=== PATIENT | male | born 1945 | race Caucasian/White ===

== ENCOUNTER 2017-11-19 06:21 | Outpatient (CLI) | payer BC, MEDICARE ==
[~2017-11-19] VITALS: Ht 182.9 cm; Wt 84.4 kg
[2017-11-19] VITALS (16 sets, daily range): BP systolic 120–156; BP diastolic 55–72
[~2017-11-19 06:21] MED LIST: ALLO300T PO; ASPI-630 PO; CARV12.52 PO; CARV25TA PO; CARV25TA2 PO; DIGO250T PO; ENOX80DI3 SQ; FENO145T30 PO; GLIM1TAB PO; GLIM2TAB2 PO; HYDR-2758 PO; INDO50CA5 PO; LISI1TAB5 PO; METF500T5 PO; SIMV80TA7 PO; WARF10TA45 PO
[2017-11-19] MEDS ORDERED: IODIXANOL 320 MG/ML 100 ML VIAL. ONE (07:10)
[2017-11-19] MEDS ORDERED: HEPARIN for ARTERIAL LINE 1,500 ML ONE (07:10)
[2017-11-19] MEDS ORDERED: LIDOCAINE 1% PF 30 ML VIAL. ONE (07:10)
[2017-11-19] MEDS ORDERED: fentaNYL PF VIAL 100 MCG/2 ML VIAL ONE (07:18)
[2017-11-19] MEDS ORDERED: HEPARIN for IV BOLUS 10,000 UNIT/10 ML VIAL. ONE (07:19)
[2017-11-19] MEDS ORDERED: MIDAZOLAM HCL/PF 5 MG/5 ML VIAL. ONE (07:19)
[2017-11-19] MEDS ORDERED: AMLO10TA2 PO (07:25)
[2017-11-19] MEDS ORDERED: INDO50CA5 PO (07:25)
[2017-11-19] MEDS ORDERED: ASPI-630 PO (07:25)
[2017-11-19 07:36] LABS: HEMATOCRIT 36.8 % (39.0-53.0); HEMOGLOBIN 12.4 g/dL (13.0-17.5); RED BLOOD COUNT 3.89 x10^6/uL (4.30-5.70); RED CELL DISTRIBUTION WIDTH 15.9 % (11.5-14.5); WHITE BLOOD COUNT 7.8 x10^3/uL (4.0-11.0)
[2017-11-19 07:46] LABS: PROTHROMBIN TIME PATIENT 13.8 SEC (11.7-14.0)
[2017-11-19 07:53] LABS: CALCIUM 9.5 mg/dL (8.5-10.1); CREATININE 1.7 mg/dL (0.7-1.3); GFR 39.7; POTASSIUM 4.2 mmol/L (3.5-5.1)
[2017-11-19] MEDS ORDERED: LIDOCAINE 1% PF 30 ML VIAL. INJ ONE (09:00)
[2017-11-19] MEDS ORDERED: fentaNYL PF VIAL 100 MCG/2 ML VIAL IV ONE (09:00)
[2017-11-19] MEDS ORDERED: IODIXANOL 320 MG/ML 100 ML VIAL. IART ONE (09:00)
[2017-11-19] MEDS ORDERED: MIDAZOLAM HCL/PF 5 MG/5 ML VIAL. IV ONE (09:00)
[2017-11-19] MEDS ORDERED: HEPARIN for IV BOLUS 10,000 UNIT/10 ML VIAL. IV ONE (09:00)
[2017-11-19] MEDS ORDERED: NITROGLYCERIN 200 MCG/2 ML SYRINGE FOR CATH/VASC LAB. IART ONE (09:15)
--- NOTE | 2017-11-19 11:56 | CARD ---
MR#: [id number] Date of Study: 11/19/2017 Ordering Physician: BRISA ARVIZU, Referring Physician: BRISA ARVIZU, Tech: RT Sylvester (R) APPROVED REPORT Technologist: RT Sylvester (R) Nurse: Lien Apple R.N. Procedure(s) performed: 108 MINS SEDATION Abdominal aortogram with bilateral peripheral run-off. Attempted PARTS PICKER recanalization of the right anterior tibial artery. HISTORY The patient is a 72 year-old male with a history of : renal failure without dialysis, coronary artery disease, tobacco history() , hypertension, dyslipidemia. INDICATION The indication(s) include : Bilateral lower extremity claudication with significant lifestyle limitin g symptoms.. PROCEDURE NARRATIVE After appropriate informed consent, the patient was brought to the slab inspector and placed in the supine position. Preprocedural timeout was completed and confirmed the right patient and procedure. The bila teral groins were prepped and draped in usual sterile fashion. Moderate sedation acheived with Fentan yl and Versed. The patient received 7000 units of Heparin for anticoagulation. Access: Under lidocaine local anesthesia, a 5Fr introducer sheath was placed in the LCFA via the kacy fied seldinger technique with a J-tipped guidewire and an 18g needle. Diagnostic angiography was then performed using a 5Fr Omniflush catheter with digital subtraction angiography. Next, the contralater al (RCFA) was accessed with the aid of the Omniflush catheter and a J-tipped guidewire. The omniflush was then exchanged for a long angled glide catheter which was then placed in the RCFA. Repeat right lower extremity with DSA was performed. FINDINGS: AO: 154/86 AORTA: Distal 30% stenosis. RENALS: No significant disease. RCIA: No significant disease. REIA: Mild diffuse irregularities of up to 40%. RIIA: Moderate diffuse irregularities of up to 50%. RCFA: No significant disease. RSFA: Moderate diffuse irregularities in the proximal and mid segment of 30%. Patent distal stent wit h 50% ISR. RPOP: Moderate diffuse disease of up to 30%. RAT: Proximal 100% occlusion. The distal vessel is seen to fill via distal peroneal collaterals. RPER: There is a proximal to mid 40-50% stenosis. RPT: Ostial 100% occlusion. The distal vessel is seen to fill via peroneal collaterals. LCIA: Mild diffuse irregularities of up to 20%. AMARJIT: Mild diffuse irregularities of up to 20%. LIIA: Mild diffuse irregularities. LCFA: No significant disease. LSFA: Heavily calcified with diffuse irregularities of up to 50%. LPOP: Has a focal 80% stenosis in the P2/P3 segment. LAT: Proximally occluded. Distal vessel is seen to fill via peroneal collaterals and geniculate colla terals. LPER: Moderate diffuse disease of up to 50%. LPT: Ostially occluded. Distal vessel is seen to fill via peroneal collaterals. INTERVENTIONAL TECHNIQUE: The 5Fr sheath was replaced with a 6fr Edwardo 55cm sheath. Using an angled glide catheter, a pull grad ient across the RSFA stent revealed a 16 mm gradient. Therefore, further intervention on this was def erred. Due to one vessel run-off, the peroneal artery lesion was not intervened upon. Using a command 0.014'' wire, the wire was directed into the anterior tibial artery over a finecross wire. The proxi mal cap was crossed but the wire was outside the vessel architecture. Therefore, further intervention was deferred. There was no sign of significant contrast extravasation. Due to lack of any ischemic u lcers, contrast load further intervention was deferred in favor of a pedal approach. At case completi on, the left sided sheath was removed and hemostasis was achieved with an Angioseal device. The patient tolerated the procedure well and there were no acute complications. Conclusion 1. Severe below knee disease bilaterally with one vessel run-off 2. Unsuccessful right anterior tibial artery PARTS PICKER recanalization via the antegrade approach. Recommendations The patient has significant lifestyle limiting symptoms and therefore, we will plan for return trip t o the lab in 4 weeks for staged PVI of the right anterior tibial artery and left popliteal artery via a right pedal/femoral approach. Signed by : Brisa Arvizu, Electronically Approved : 11/19/2017 11:55:55
== END 2017-11-19 13:51 | disposition home or self-care (01) ==
LOC: CCL 06:21
PROVIDERS: ATTEND Internal Medicine Cardiovascular Disease
DX: I70.213 Atherosclerosis of native arteries of extremities with intermittent claudication, bilateral legs (principal); I10 Essential (primary) hypertension; I25.10 Atherosclerotic heart disease of native coronary artery without angina pectoris; E78.5 Hyperlipidemia, unspecified; I70.0 Atherosclerosis of aorta
CPT/HCPCS: 36246; 36415; 75630; 80048; 85027; 85347; 85610; 99152; 99153; C1769; C1885; C1887; C1892; J1644; J2250; J3010; Q9967; C1771; G0269

== ENCOUNTER → 2019-05-19 | Outpatient (CLI) | payer BC, MEDICARE ==
[2017-12-11 10:52] VITALS: BP 157/73
[~2019-05-19] MED LIST changes: +AMLO10TA8 PO; +CARV12.511 PO; -CARV12.52 PO; -DIGO250T PO; +DIGO250T3 PO; +FENO145T3 PO; -FENO145T30 PO; -GLIM2TAB2 PO; +GLIM2TAB7 PO; -HYDR-2758 PO; +HYDR-2761 PO; +HYDR-2868 PO; +INDO50CA15 PO; -INDO50CA5 PO; +ISOS30TA4 PO; +LISI1TAB19 PO; -LISI1TAB5 PO; +METF500T16 PO; -METF500T5 PO; +SIMV80TA17 PO; -SIMV80TA7 PO
--- NOTE | 2019-05-19 13:37 | RAD ---
MR#: [id number] Date of Study: 05/19/2019 Ordering Physician: BRISA ARVIZU, Referring Physician: BRISA ARVIZU, Tech: Lalit Parrish MBA, RDMS, RVT, RDCS, RTR APPROVED REPORT Patient Location: OUT-PATIENT Indications PAD VELOCITY AND DOPPLER WAVEFORM ANALYSIS RIGHT cm/secWaveformSeverity LEFT cm/secWaveform Severity dCFA 61.0BiphasicdCFA 104.0Biphasic Prof Fem Art. 94.0BiphasicProf Fem Art. 44.0Biphasic Fem Art Prox. 447.0BiphasicFem Art Prox. 356.0Biphasic Fem Art Mid. 193.0BiphasicFem Art Mid. 158.0Biphasic Fem Art Dist. 52.0BiphasicFem Art Dist. 41.0Monophasic Pop Art(Fossa) 32.0BiphasicPop Art(AK) 34.0Monophasic FIELD OPERATOR Prox. OccludedPTA Prox. 54.0Monophasic FIELD OPERATOR Dist. OccludedPTA Dist. 41.0Monophasic [place] Prox. 71.0MonophasicATA Prox. 132.0Monophasic DPA 22MonophasicDPA 33Monophasic Findings Grayscale images of the bilateral lower ext arterial vessels are notable for diffuse atherosclerotic calcification On the right, Spectral waveforms and color Doppler velocities are notable for a greater than 75% sten osis involving the proximal SFA. Imaged velocities are noted distally in the popliteal vessels. The p osterior tibial artery appears to be excluded and the peroneal artery is not well-visualized. The ant erior tibial artery has monophasic waveforms. On the left there are biphasic waveforms in the common femoral artery with again likely a greater joey n 50% stenosis involving the proximal SFA was diminished distal velocities. Monophasic waveforms are noted throughout the distal SFA and popliteal and below-knee vessels. The peroneal artery is not visu alized. There are monophasic waveforms in the posterior tibial with normal velocities. Mildly elevate d velocities in the anterior tibial artery but in a monophasic wave pattern. Critical Notification Critical Value: No <Conclusion> 1. Severe bilateral SFA disease as described above 2. One-vessel runoff on the right side and two-vessel runoff on the left side. Signed by : Brisa Arvizu, Electronically Approved : 05/19/2019 10:48:00
--- NOTE | 2019-05-19 13:37 | RAD ---
MR#: [id number] Date of Study: 05/19/2019 Ordering Physician: BRISA ARVIZU, Referring Physician: BRISA ARVIZU, Tech: Lalit Parrish MBA, RDMS, RVT, RDCS, RTR APPROVED REPORT Patient Location: OUT-PATIENT Laterality:Bilateral Indications PAD Doppler Spectral Velocity Analysis Right Left pCCA 79/17 cm/spCCA 89/15 cm/s mCCA 59/13 cm/smCCA 45/19 cm/s dCCA 37/8 cm/sdCCA 47/15 cm/s Bulb 40/6 cm/sBulb 34/12 cm/s ECA 67/ cm/sECA 68/ cm/s pICA 44/16 cm/spICA 71/20 cm/s Chidi 75/25 cm/smICA 84/32 cm/s dICA 83/30 cm/sdICA 89/32 cm/s Vert. 44/ cm/sVert. 43/ cm/s Subcl. 106/ cm/sSubcl. 102/ cm/s ICA/CCA 1.05ICA/CCA 1.00 Findings Grayscale images of the bilateral carotid vessels demonstrate mild diffuse intimal hyperplasia On the right side velocities are mildly diminished diffusely suggestive of more proximal low output c ardiac state. No significant velocity acceleration is noted with overall 0 to less than 50% stenosis based on veloc ity criteria. Normal ICA to CCA ratios bilaterally. Vertebral velocities are antegrade. Subclavian velocities are within normal limits. Critical Notification Critical Value: No <Conclusion> No significant carotid occlusive disease bilaterally. Signed by : Brisa Arvizu, Electronically Approved : 05/19/2019 11:15:41
--- NOTE | 2019-05-19 13:37 | RAD ---
MR#: [id number] Date of Study: 05/19/2019 Ordering Physician: BRISA ARVIZU, Referring Physician: BRISA ARVIZU, Tech: Lalit Parrish MBA, RDMS, RVT, RDCS, RTR APPROVED REPORT Patient Location: OUT-PATIENT Indications PAD Duplex Results A/PTransverseLongitudinal Proximal Aorta 2.5cm2.3cm Mid Aorta 2.1cm1.8cm Distal Aorta 1.6cm1.5cm Doppler VelocityWaveform Proximal Aorta 60.0 cm/sec Findings Grayscale images of the abdominal aorta are limited due to bowel gas and body habitus. There is mild diffuse calcification in the visualized portions. No obvious aneurysm is noted with measurements as noted above. Critical Notification Critical Value: No <Conclusion> No evidence of abdominal aortic aneurysm. Signed by : Brisa Arvizu, Electronically Approved : 05/19/2019 11:16:41
== END | disposition home or self-care (01) ==
LOC: US 07:06
PROVIDERS: ATTEND Internal Medicine Cardiovascular Disease
DX: I70.291 Other atherosclerosis of native arteries of extremities, right leg (principal)
CPT/HCPCS: 93880; 93925; 93978

== ENCOUNTER → 2019-05-25 | Outpatient (CLI) | payer BC ==
[2017-12-11 10:52] VITALS: BP 157/73
--- NOTE | 2019-05-25 13:23 | CARD ---
MR#: [id number] Date of Study: 05/25/2019 Ordering Physician: BRISA PEREZ, Referring Physician: BRISA PEREZ, Tech: Yazmin Perales TRANG APPROVED REPORT EXAM: Two-dimensional and M-mode echocardiogram with Doppler and color Doppler. Other Information Quality : GoodHR: 100bpm INDICATION CAD RISK FACTORS CABG and aortic mechanical valve replacement, 1999 2D DIMENSIONS RVDd3.8 (2.9-3.5cm)Left Atrium(2D)5.4 (1.6-4.0cm) IVSd0.8 (0.7-1.1cm)Aortic Root(2D)2.8 (2.0-3.7cm) LVDd7.2 (3.9-5.9cm)LVOT Diameter2.2 (1.8-2.4cm) PWd1.3 (0.7-1.1cm)LVDs6.7 (2.5-4.0cm) FS (%) 5.7 %SV33.5 ml LVEF(%)12.5 (>50%) Aortic Valve AoV Peak Jamir.203.8cm/sAoV VTI29.7cm AO Peak GR.16.6mmHgLVOT Peak Jamir.87.5cm/s AO Mean GR.7mmHgAVA (VMAX)1.62cm2 AI P 1/2 [id number] Mitral Valve MV E Peak Gr.7mmHgMV E Mean Gr.2mmHg Pulmonary Valve PV Peak Qbtumsxc63.3cm/s Tricuspid Valve TR P. Xpuxouhx591sh/sRAP ITMXYSXF2soZn TR Peak Gr.59mtTrUSIP95riTo LEFT VENTRICLE The Left Ventricle is severely dilated. There is normal left ventricular wall thickness. The ejection fraction is severely impaired. The Ejection Fraction is 15-20% There is severe global hypokinesis of the left ventricle. Tissue Doppler imaging reveals severe left ventricular diastolic dysfunction. Th ere is no ventricular septal defect visualized. RIGHT VENTRICLE The right ventricle is normal size. RV Systolic function is mildly reduced. There is a pacemaker/ICD lead in the RV/RA ATRIA The left atrium is severely dilated. The right atrium is moderately to severely dilated. A pacemaker is seen in the right atrium consistent with history. The interatrial septum is intact with no evidenc e for an atrial septal defect or patent foramen ovale as noted on 2-D or Doppler imaging. AORTIC VALVE Doppler and Color Flow revealed mild to moderate aortic regurgitation. The mechanical aortic valve is not well visualized due to imaging artifacts from the prosthesis. Doppler revealed a max pressure gr adient of 17 mmHg and a mean pressure gradient of 7 mmHg. MITRAL VALVE Mitral annular calcification is mild. There is no mitral valve stenosis. Doppler and Color-flow revea led mild mitral regurgitation. TRICUSPID VALVE The tricuspid valve is normal in structure and function. Doppler and Color Flow revealed trace to mil d tricuspid regurgitation. PAP is estimated at 36 mmHg. There is no tricuspid valve stenosis. PULMONIC VALVE The pulmonary valve is normal in structure and function. Doppler and Color Flow revealed trace pulmon ic valvular regurgitation. There is no pulmonic valvular stenosis. GREAT VESSELS The aortic root is normal in size. The ascending aorta is normal in size. The IVC is normal in size a nd collapses >50% with inspiration. PERICARDIAL EFFUSION There is no pleural effusion. There is no evidence of significant pericardial effusion. Critical Notification Critical Value: No <Conclusion> The ejection fraction is severely impaired. The Ejection Fraction is 15-20% There is severe global hypokinesis of the left ventricle. There is a pacemaker/ICD lead in the RV/RA The mechanical aortic valve is not well visualized due to imaging artifacts from the prosthesis. Dopp ler revealed a max pressure gradient of 17 mmHg and a mean pressure gradient of 7 mmHg. Doppler and Color Flow revealed mild to moderate aortic regurgitation. Doppler and Color Flow revealed trace to mild tricuspid regurgitation. PAP is estimated at 36 mmHg. Signed by : Brisa Perez, Electronically Approved : 05/25/2019 13:22:16
== END ==
LOC: ECHO 09:35
PROVIDERS: ATTEND Internal Medicine Cardiovascular Disease
DX: I08.0 Rheumatic disorders of both mitral and aortic valves (principal); I25.10 Atherosclerotic heart disease of native coronary artery without angina pectoris
CPT/HCPCS: 93306

== ENCOUNTER 2019-06-20 08:38 | Inpatient (IN) | payer BC, MEDICARE ==
[~2019-06-20] VITALS: Ht 182.9 cm; Wt 80.2 kg
[2019-06-20] MEDS ORDERED: dilTIAZem IV PUSH 25 MG/5 ML VIAL IVP ONE (09:00)
[2019-06-20] MEDS ORDERED: dilTIAZem INJ 125 MG in IV NORMAL SALINE 100ML 100 ML IV ONE (09:00)
[2019-06-20] MEDS ORDERED: ASPIRIN CHEWABLE 81 MG TABLET. PO ONE (09:00)
--- NOTE | 2019-06-20 09:11 | RAD ---
Examination: PORTABLE CHEST 1V History: Chest pain Comparison/Correlation: 10/17/2015 2 view chest x-ray exam Findings: Portable upright frontal view chest was obtained. Single lead left-sided ICD is present. Sternal wires are present. Heart size is borderline. No infiltrate or pneumothorax. No significant pleural effusion. Costophrenic angles are not fully included in the spine limits assessment. Impression: No suspicious process on this limited exam. Electronically signed by: Syed Alfredo MD (06/20/2019 9:09 AM) [id number]
--- NOTE | 2019-06-20 09:22 | EKG ---
[facility] [address] [place] [address] Test Date: 2019-06-20 Test Time: 08:47:32 Pat Name: SHELLY COREAS Department: Room: Gender: M Stallion Keeper: : 1945 Requested By: LUIS MANUEL FOY Order Number: [id number] Reading MD: Measurements Intervals [place] Rate: 127 P: MT: QRS: -43 QRSD: 140 T: 73 QT: 324 QTc: 476 Interpretive Statements ATRIAL FIB./FLUTTER WITH RAPID VENTRICULAR RESPONSE ABNORMAL LEFT AXIS DEVIATION NON SPECIFIC INTRAVENTRICULAR BLOCK ABNORMAL ECG No previous ECG available for comparison
[2019-06-20 09:30] LABS: CALCIUM 8.8 mg/dL (8.5-10.1); CREATININE 1.5 mg/dL (0.7-1.3); GFR 45.6; POTASSIUM 4.4 mmol/L (3.5-5.1)
[2019-06-20 09:35] LABS: ALBUMIN 3.1 g/dL (3.4-5.0); MAGNESIUM 0.9 mg/dL (1.8-2.4); TOTAL BILIRUBIN 0.7 mg/dL (0.2-1.0); TOTAL PROTEIN 6.3 g/dL (6.4-8.2)
--- NOTE | 2019-06-20 09:36 | PHYS DOC ---
Past Medical History Past Medical History: Diabetes-Type II, Hypertension Past Surgical History: Coronary Bypass Surgery, Pacemaker, Other Additional Past Surgical Histo: valve replacement Smoking Status: Current Every Day Smoker Alcohol Use: None Drug Use: None Adult General Chief Complaint Chief Complaint: CHEST PAIN [facility] HPI Patient is a 74 year old male with history of hypertension, diabetes mellitus, coronary artery disease with status post CABG, artificial cardiac valve placement who presents with complaint of chest pain. Patient complaining of intermittent episodes of chest pain or shortness of breath when he woke up for the last 3 days that last for about 2 to 3 minutes and resolve during the day. Patient states the pain is in bilateral chest without radiation as a sharp pain and rated his pain 6/10 without having any chest pain at arrival to ER. Patient denies palpitation, dizziness, fever and chills, nausea and vomiting. Patient complaining of productive cough with clear sputum for the last 1 week without fever and chills and generalized weakness. Patient taking Coumadin but denies having history of atrial fibrillation. Patient had atrial fibrillation with RVR rate of 127 at arrival to ER and denied palpitation and dizziness and chest pain and shortness of breath. Review of Systems Review of Systems Constitutional: Denies fever or chills [] Eyes: Denies change in visual acuity, redness, or eye pain [] HENT: Denies nasal congestion or sore throat [] Respiratory: Reports cough and shortness of breath Cardiovascular: No additional information not addressed in HPI [] GI: Denies abdominal pain, nausea, vomiting, bloody stools or diarrhea [] : Denies dysuria or hematuria [] Musculoskeletal: Denies back pain or joint pain [] Integument: Denies rash or skin lesions [] Neurologic: Denies headache, focal weakness or sensory changes [] Endocrine: Denies polyuria or polydipsia [] All other systems were reviewed and found to be within normal limits, except as documented in this note. Current Medications Current Medications Current Medications Medications (Trade) Dose Ordered Sig/William Start Time Stop Time Status Last Admin Dose Admin Aspirin (Children'S Aspirin) 324 mg 1X ONCE 06/20/19 09:00 06/20/19 09:01 DC Diltiazem HCl (Cardizem Iv Push) 20 mg 1X ONCE 06/20/19 09:00 06/20/19 09:01 DC Diltiazem HCl 125 mg/Sodium Chloride 125 ml @ 10 mls/hr 1X ONCE 06/20/19 09:00 06/20/19 21:29 Magnesium Sulfate 50 ml @ 25 mls/hr 1X ONCE 06/20/19 11:00 06/20/19 12:59 Allergies Allergies Allergies Coded Allergies Type Severity Reaction Last Updated Verified No Known Drug Allergies 05/05/15 No Physical Exam Physical Exam Constitutional: Well developed, well nourished, no acute distress, non-toxic appearance. [] HENT: Normocephalic, atraumatic, bilateral external ears normal, oropharynx moist, no oral exudates, nose normal. [] Eyes: PERRLA, EOMI, conjunctiva normal, no discharge. [] Neck: Normal range of motion, no tenderness, supple, no stridor. [] Cardiovascular: Irregularly irregular rhythm with tachycardia, no murmur [] Lungs & Thorax: Bilateral breath sounds clear to auscultation [] Abdomen: Bowel sounds normal, soft, no tenderness, no masses, no pulsatile masses. [] Skin: Warm, dry, no erythema, no rash. [] Back: No tenderness, no CVA tenderness. [] Extremities: No tenderness, no cyanosis, no clubbing, ROM intact, no edema. [] Neurologic: Alert and oriented X 3, normal motor function, normal sensory f unction, no focal deficits noted. [] Psychologic: Affect normal, judgement normal, mood normal. [] Current Patient Data Vital Signs Vital Signs Date Time Temp Pulse Resp B/P (MAP) Pulse Ox O2 Delivery O2 Flow Rate FiO2 06/20/19 09:06 97.0 118 22 137/77 (97) 97 Room Air 97.0 Lab Values Laboratory Tests Test 06/20/19 09:00 White Blood Count 9.8 x10^3/uL (4.0-11.0) Red Blood Count 4.07 x10^6/uL (4.30-5.70) L Hemoglobin 12.7 g/dL (13.0-17.5) L Hematocrit 38.3 % (39.0-53.0) L Mean Corpuscular Volume 94 fL (79-100) Mean Corpuscular Hemoglobin 31 pg (25-35) Mean Corpuscular Hemoglobin Concent 33 g/dL (31-37) Red Cell Distribution Width 15.4 % (11.5-14.5) H Platelet Count 179 x10^3/uL (140-400) Neutrophils (%) (Auto) 74 % (31-73) H Lymphocytes (%) (Auto) 17 % (24-48) L Monocytes (%) (Auto) 7 % (0-9) Eosinophils (%) (Auto) 1 % (0-3) Basophils (%) (Auto) 1 % (0-3) Neutrophils # (Auto) 7.2 x10^3/uL (1.8-7.7) Lymphocytes # (Auto) 1.7 x10^3/uL (1.0-4.8) Monocytes # (Auto) 0.7 x10^3/uL (0.0-1.1) Eosinophils # (Auto) 0.1 x10^3/uL (0.0-0.7) Basophils # (Auto) 0.1 x10^3/uL (0.0-0.2) Prothrombin Time 38.0 SEC (11.7-14.0) H Prothrombin Time INR 3.8 (0.8-1.1) H Sodium Level 141 mmol/L (136-145) Potassium Level 4.4 mmol/L (3.5-5.1) Chloride Level 103 mmol/L (98-107) Carbon Dioxide Level 30 mmol/L (21-32) Anion Gap 8 (6-14) Blood Urea Nitrogen 21 mg/dL (8-26) Creatinine 1.5 mg/dL (0.7-1.3) H Estimated GFR (Cockcroft-Gault) 45.6 BUN/Creatinine Ratio 14 (6-20) Glucose Level 169 mg/dL (70-99) H Calcium Level 8.8 mg/dL (8.5-10.1) Magnesium Level 0.9 mg/dL (1.8-2.4) L Total Bilirubin 0.7 mg/dL (0.2-1.0) Aspartate Amino Transferase (AST) 18 U/L (15-37) Alanine Aminotransferase (ALT) 32 U/L (16-63) Alkaline Phosphatase 103 U/L (46-116) Creatine Kinase 98 U/L (39-308) Troponin I Quantitative < 0.017 ng/mL (0.000-0.055) OY-Qak-W-Type Natriuretic Peptide > 19360 pg/mL (0-449) H Total Protein 6.3 g/dL (6.4-8.2) L Albumin 3.1 g/dL (3.4-5.0) L Albumin/Globulin Ratio 1.0 (1.0-1.7) Laboratory Tests 06/20/19 09:00 Laboratory Tests 06/20/19 09:00 EKG EKG EKG interpreted by me. EKG at 0847 showed atrial fibrillation with RVR at rate of 127, abnormal left axis deviation, nonspecific intraventricular block, no acute ST and T wave elevation. Radiology/Procedures Radiology/Procedures [facility] [address] [place] [address] IMAGING REPORT Signed PATIENT: SHELLY COREAS ACCOUNT: [id number] : 1945 LOCATION: ER AGE: 74 SEX: M EXAM STATUS: REG ER ORD. PHYSICIAN: LUIS MANUEL FOY MD REASON: Chest pain PROCEDURE: PORTABLE CHEST 1V Examination: PORTABLE CHEST 1V History: Chest pain Comparison/Correlation: 10/17/2015 2 view chest x-ray exam Findings: Portable upright frontal view chest was obtained. Single lead left-sided ICD is present. Sternal wires are present. Heart size is borderline. No infiltrate or pneumothorax. No significant pleural effusion. Costophrenic angles are not fully included in the spine limits assessment. Impression: No suspicious process on this limited exam. Electronically signed by: Syed Carreon MD (06/20/2019 9:09 AM) [id number] DICTATED and SIGNED BY: SYED CARREON MD DATE: 06/20/19908 Course & Med Decision Making Course & Med Decision Making Pertinent Labs and Imaging studies reviewed. (See chart for details) Evaluation of patient no-show 74-year-old poor historian male patient with complaining of intermittent episodes of chest pain and shortness of breath in the morning. Patient had O2 sat of 97% at room air without complaining of chest pain or shortness of breath at arrival to ER. Patient had atrial fibrillation with RVR without known history of A. fib that spontaneously converted to sinus rhythm with rate of under 100. Patient had blood pressure of 111 and did not have Lasix related to BNP of more than 35,000. Magnesium was 0.9 and IV magnesium was ordered. Patient requiring admission for further evaluation and treatment. Discussed with Dr. Priest who is in agreement with admission. Discussed findings and plan with patient and family, who acknowledge understanding and agreement. Dragon Disclaimer Dragon Disclaimer This electronic medical record was generated, in whole or in part, using a voice recognition dictation system. Departure Departure Impression: Primary Impression: CHF (congestive heart failure) Additional Impressions: Shortness of breath Chest pain Hypomagnesemia Renal insufficiency Anemia Tobacco abuse Atrial fibrillation with RVR Disposition: ADMITTED INPATIENT (At 1110) Admitting Physician: IMER (Dr. Priest accepted admission at 1109) Condition: IMPROVED Referrals: COLLETTE REYNA MD (PCP) The HEART Score for CP Pts HEART Score for Chest Pain: HEART Score for Chest Pain Response (Comments) Value History Moderately Suspicious 1 ECG Nonspecific Repolarizatio 1 Age > 65 2 Risk Factors >3 Risk Factors or Hx CAD 2 Troponin < Normal Limit 0 Total 6 Risk Factors: Risk Factors: DM, Current or recent (<one month) smoker, HTN, HLP, family history of CAD, obesity. Risk Scores: Score 0 - 3: 2.5% MACE over next 6 weeks - Discharge Home Score 4 - 6: 20.3% MACE over next 6 weeks - Admit for Clinical Observation Score 7 - 10: 72.7% MACE over next 6 weeks - Early Invasive Strategies Critical Care Time Critical care time was 50 minutes exclusive of procedures. Problem Qualifiers Primary Impression: CHF (congestive heart failure) Heart failure type: unspecified Heart failure chronicity: unspecified Qualified Codes: I50.9 - Heart failure, unspecified Additional Impressions: Chest pain Chest pain type: unspecified Qualified Codes: R07.9 - Chest pain, unspecified Anemia Anemia type: unspecified type Qualified Codes: D64.9 - Anemia, unspecified LUIS MANUEL FOY MD Jun 20, 2019 09:36
[2019-06-20 09:37] LABS: BASO # 0.1 x10^3/uL (0.0-0.2); BASO % 1 % (0-3); EOS # 0.1 x10^3/uL (0.0-0.7); EOS % 1 % (0-3); HEMATOCRIT 38.3 % (39.0-53.0); HEMOGLOBIN 12.7 g/dL (13.0-17.5); LYMPH # 1.7 x10^3/uL (1.0-4.8); LYMPH % 17 % (24-48); MEAN CORPUSCULAR HEMOGLOBIN 31 pg (25-35); MEAN CORPUSCULAR HGB CONC 33 g/dL (31-37); MEAN CORPUSCULAR VOLUME 94 fL (79-100); MONO # 0.7 x10^3/uL (0.0-1.1); MONO % 7 % (0-9); NEUT # 7.2 x10^3/uL (1.8-7.7); NEUT % 74 % (31-73); PLATELET COUNT 179 x10^3/uL (140-400); RED BLOOD COUNT 4.07 x10^6/uL (4.30-5.70); RED CELL DISTRIBUTION WIDTH 15.4 % (11.5-14.5); WHITE BLOOD COUNT 9.8 x10^3/uL (4.0-11.0)
[2019-06-20] MEDS ORDERED: MAGNESIUM SULFATE 2GM 50 ML IV ONE (11:00)
--- NOTE | 2019-06-20 12:54 | CONS ---
DATE OF CONSULTATION: 06/20/2019 CHIEF COMPLAINT: Chest pain and shortness of breath. HISTORY OF PRESENT ILLNESS: The patient is a pleasant 74-year-old male who presented to the ER with chest pain and shortness of breath. He has known coronary artery disease with history of bypass surgery. While in the ER, we noticed that he is in AFib with RVR and heart failure. I discussed the case with ER physician. We are going to admit the patient and consult Cardiology. PAST MEDICAL HISTORY: Coronary artery disease with bypass surgery, diabetes, hypertension, pacemaker, valve replacement, and tobacco abuse. ALLERGIES: None. FAMILY HISTORY: Coronary artery disease. SOCIAL HISTORY: He smokes. No drinks or drugs. MEDICATIONS: Reviewed. Please refer to the MRAD. REVIEW OF SYSTEMS: GENERAL: No history of weight change, weakness or fevers. SKIN: No bruising, hair changes or rashes. EYES: No blurred, double or loss of vision. NOSE AND THROAT: No history of nosebleeds, hoarseness or sore throat. HEART: He complains of chest pain. LUNGS: He complains of shortness of breath. GASTROINTESTINAL: Denies changes in appetite, nausea, vomiting, diarrhea or constipation. GENITOURINARY: No history of frequency, urgency, hesitancy or nocturia. NEUROLOGIC: Denies history of numbness, tingling, tremor or weakness. PSYCHIATRIC: No history of panic, anxiety or depression. ENDOCRINE: No history of heat or cold intolerance, polyuria or polydipsia. EXTREMITIES: Denies muscle weakness, joint pain, pain on walking or stiffness. PHYSICAL EXAMINATION: VITALS: Within normal limits and are stable. GENERAL: No apparent distress. Alert and oriented. HEENT: Normal cephalic atraumatic, external auditory canals are patent EYES: Extraocular muscles are intact, pupils are equally round and reactive to light and accommodation MUSCULOSKELETAL: Well developed, well nourished, good range of motion ENDOCRINE: No thyromegaly was palpated LYMPHATICS: No cervical chain or axillary nodes were noted HEMATOPOIETIC: No bruising NECK: Supple, no JVD, no thyromegaly was noted. LUNGS: He has some fine crackles. HEART: He has distant S1, S2 with irregular rate. ABDOMEN: Soft, nontender. Positive bowel sounds no organomegaly, normal bowel sounds. EXTREMITIES: Without any cyanosis, clubbing, or edema. Pedal pulses intact, Homans sign is negative. NEUROLOGIC: Normal speech, normal tone. A & O x3, moves all extremities, no obvious focal deficits. PSYCHIATRIC: Normal affect, normal mood. Stable. SKIN: No ulcerations or rashes, good skin turgor, no jaundice. VASCULAR: Good capillary refill, neurovascular bundle appears to be intact. LABORATORY DATA: Creatinine is 1.5. Hemoglobin is 12.7. BNP greater than 35,000. Troponin is 0. ASSESSMENT AND PLAN: [id number] systolic and diastolic heart failure, chest pain, and atrial fibrillation with rapid ventricular response. The patient has been admitted. We will consult Cardiology. Serial enzymes, serial EKGs, cardiac monitoring, home meds, and deep venous thrombosis prophylaxis. Full code. PROGNOSIS: Long-term guarded. SHANNA VALDOVINOS DO DR: JORJE/sherri JOB#: [id number] / [id number]
--- NOTE | 2019-06-20 13:41 | EKG ---
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
--- NOTE | 2019-06-20 13:57 | NUR ---
Patient does not know what home medicines he takes but states that they're the same as what he took when he was here last, which was November 2017. Patient does not know what his 's phone number is. Had BM today, no diarrhea. Complains of cough and shortness of breath, travels daily to [place]. Wishes to be a DNR but has no advanced directive.
[2019-06-20 18:23] VITALS: BP 146/65
[2019-06-20] MEDS ORDERED: ALLO100T PO (20:18)
[2019-06-20] MEDS ORDERED: CARV25TA2 PO (20:18)
[2019-06-20] MEDS ORDERED: LISI1TAB19 PO (20:18)
[2019-06-20] MEDS ORDERED: ATOR80TA72 PO (20:18)
[2019-06-20] MEDS ORDERED: WARF-31 PO (20:37)
[2019-06-20] MEDS ORDERED: WARFARIN 5 MG TABLET. PO SCH (20:45)
[2019-06-20] MEDS ORDERED: ATORVASTATIN CALCIUM 40 MG TABLET. PO SCH (21:00)
[2019-06-20] MEDS ORDERED: CARVEDILOL 12.5 MG TABLET. PO SCH (21:00)
[2019-06-20] MEDS ORDERED: LISINOPRIL 20 MG TABLET PO SCH (21:00)
[2019-06-20] MEDS ORDERED: metFORMIN 500 MG TABLET PO SCH (21:00)
[2019-06-20] MEDS ORDERED: NON FORMULARY ITEM (Lisinopril/Hydrochlorothiazide (Lisinopril-Hctz 20-12.5 Mg Tab) 1 TAB) PO SCH (21:00)
[2019-06-20] MEDS ORDERED: hydroCHLOROthiazide 12.5 MG CAPSULE PO SCH (21:00)
[2019-06-20 22:50] VITALS: BP 117/57
--- NOTE | 2019-06-20 22:51 | PDOC2 ---
CARDIOLOGY CONSULT NOTE CHEIF COMPLAINT: Dyspnea HPI: Mr. Oconnell is a pleasant 74 y.o man who is well known to me. He presents with worsening dyspnea w/o other stigmata of heart failure. He has had progressive decline in LV function despite medical optimization.He continues to smoke. He has not had any angina but did have central chest pressure during episode of afib with rvr. No other acute issues. He is tolerating his medical therapy well. PMHX: CAD s/p CABG Mechanical AVR Ischemic CMP with last EF OF 20% in 2019 PAD severe LE claudication Tobacco abuse. HTN Dyslipidemia SOCHX: He is . Still smokes. FAMHX: NC CURRENT MEDS: Current Medications Medications (Trade) Dose Ordered Sig/William Route PRN Reason Start Time Stop Time Status Last Admin Dose Admin Magnesium Sulfate 50 ml @ 25 mls/hr 1X ONCE IV 06/20/19 11:00 06/20/19 12:59 DC 06/20/19 12:23 Atorvastatin Calcium (Lipitor) 80 mg QHS PO 06/20/19 21:00 06/20/19 21:41 Carvedilol (Coreg) 25 mg BIDWMEALS PO 06/20/19 21:00 06/20/19 21:43 Lisinopril (Prinivil) 20 mg BID PO 06/20/19 21:00 06/20/19 21:42 Hydrochlorothiazide (Microzide) 12.5 mg BID PO 06/20/19 21:00 06/20/19 21:42 ALLERGIES: Allergies Coded Allergies Type Severity Reaction Last Updated Verified No Known Drug Allergies 05/05/15 No ROS: Negative unless otherwise noted above in HPI PHYSICAL EXAM: Vital Signs/I&O: Vital Signs Date Time Temp Pulse Resp B/P (MAP) Pulse Ox O2 Delivery O2 Flow Rate FiO2 06/20/19 21:43 126 155/88 06/20/19 18:23 97.5 18 97 Room Air 97.5 Physical Exam: GEN.: No apparent distress. Alert and oriented. HEENT: Head is normocephalic, atraumatic NECK: Supple. LUNGS: decreased breath sounds bilaterally. HEART: irr irr. diminished pedal pulses. ABDOMEN: Soft, nontender. Positive bowel sounds. EXTREMITIES: Without any cyanosis. NEUROLOGIC: Normal speech, normal tone PSYCHIATRIC: Normal affect, normal mood. SKIN: No ulcerations DIAGNOSTIC TESTING: Labs reviewed. Consistent with HF EKG reviewed. ASSESSMENT: 1. Acute on chronic systolic and diastolic HF PLAN: 1. Will start Metoprolol XL in a.m and stop his coreg. 2. Stop lisinopril and start Entresto in a.m. 3. Give one dose of IV lasix in a.m 4. Continue rate control efforts. Needs further diuresis. Continue anticoagulation. Supportive care. Thanks. BRISA ARVIZU MD Jun 20, 2019 22:51
[2019-06-21 03:15] VITALS: BP 144/76
[2019-06-21 07:29] VITALS: BP 176/76
[2019-06-21] MEDS ORDERED: ISOSORBIDE MONONITRATE ER 30 MG TAB.ER.24H PO SCH (09:00)
[2019-06-21] MEDS ORDERED: SACUBITRIL/VALSARTAN 49/51MG TABLET. PO SCH (09:00)
[2019-06-21] MEDS ORDERED: METOPROLOL SUCC 24HR ER 100 MG TAB.ER.24H. PO SCH (09:00)
[2019-06-21] MEDS ORDERED: FUROSEMIDE 20 MG/2 ML VIAL. IVP SCH (09:00)
[2019-06-21] MEDS ORDERED: ALLOPURINOL 100 MG TABLET. PO SCH (09:00)
--- NOTE | 2019-06-21 09:18 | NUR ---
Resting quietly in room. has occasional bouts of coughing. states it is occ productive with yellow phlegm
[2019-06-21 10:27] VITALS: BP 118/66
[2019-06-21] MEDS ORDERED: METOPROLOL SUCC 24HR ER 50 MG TAB.ER.24H. PO ONE (10:45)
--- NOTE | 2019-06-21 10:49 | PDOC ---
TORSTEN RODRIGUEZ C ARCHITECT 06/21/19 1049: CARDIO Progress Notes Date and Time Date of Service 06/21/2019 Time of Evaluation 1030 Subjective Subjective: No Chest Pain, No shortness of breath, No Palpitations Vitals Vitals Vital Signs Date Time Temp Pulse Resp B/P (MAP) Pulse Ox O2 Delivery O2 Flow Rate FiO2 06/21/19 10:27 97.6 93 18 118/66 (83) 95 Room Air 97.6 Weight Weight [ ] Input and Output Intake and Output Intake and Output 06/21/19 07:00 Intake Total 550 ml Balance 550 ml Intake Oral 500 ml IV Total 50 ml Laboratory Labs Laboratory Tests Test 06/20/19 14:30 06/20/19 17:33 06/20/19 20:53 06/21/19 07:32 Troponin I Quantitative 0.040 ng/mL (0.000-0.055) 0.037 ng/mL (0.000-0.055) Glucose (Fingerstick) 142 mg/dL (70-99) 129 mg/dL (70-99) Physical Exam HEENT: Neck Supple W Full Motion Chest: Symmetric LUNGS: Other (basilar crackles, nonproductive cough) Heart: irregularly irregular (AFIB RVR) Abdomen: Soft N/T Extremities: No Calf Tenderness Neurology: alert, oriented, follow commands Assessment Assessment 1. Acute on chronic diastolic/systolic CHF: better compensated 2. AFIB RVR: remains 120s. 3. CAD: past CABG, clinicaly stable. 4. Mechanical AVR 5. ICM: EF 15-20% NYHA 2 6. AICD: single lead dual chamber sensing with VVI mode and adequate battery life 7. CKD3 Recommendations 1. Continue coumadin, check INR. Increase toprol and note response, if rate controlled this afternoon then will DC. 2. Change lasix to PO 40 mg daily and PRN, Entresto, lipitor, imdur, baby ASA 3. Discussed with RN. 1.5-2L FR, daily wt, HBPM 4. BMP in 1-2 weeks. 5. Follow up in office. BRISA ARVIZU MD 06/21/19 1546: CARDIO Progress Notes Plan Plan Pt. seen and examined. Agree with above HEAD OF VISUAL MERCHANDISING note. Supportive care. JENNIFERYOUCyndee Marquez C ARCHITECT Jun 21, 2019 10:49 BRISA ARVIZU MD Jun 21, 2019 15:46
--- NOTE | 2019-06-21 12:00 | NUR ---
SS following for discharge planning. SS reviewed pt chart and discussed with RN. Pt is from home with spouse and is currently on room air. SS will continue to follow for discharge planning.
--- NOTE | 2019-06-21 12:22 | PDOC ---
[facility] [facility] PROGRESS NOTE Chief Complaint Chief Complaint Chest pain CHF A. fib Coronary artery disease with bypass surgery, diabetes, hypertension, pacemaker, valve replacement, and tobacco abuse. History of Present Illness History of Present Illness [id number] Patient seen and examined Chart reviewed Discussed with RN INR is high at 3.8 Vitals/I&O Vitals/I&O: Vital Signs Date Time Temp Pulse Resp B/P (MAP) Pulse Ox O2 Delivery O2 Flow Rate FiO2 06/21/19 11:45 86 132/72 06/21/19 10:27 97.6 18 95 Room Air 97.6 I & O 06/20/19 06/20/19 06/21/19 15:00 23:00 07:00 Intake Total 50 ml 500 ml Balance 50 ml 500 ml Physical Exam General: Alert, Oriented X3 Heart: Normal S1, Normal S2, Other (irregular) Lungs: Clear Abdomen: Normal bowel sounds, Soft Extremities: No clubbing, No cyanosis Skin: No rashes Labs Labs: Laboratory Tests Test 06/20/19 14:30 06/20/19 17:33 06/20/19 20:53 06/21/19 07:32 Troponin I Quantitative 0.040 ng/mL (0.000-0.055) 0.037 ng/mL (0.000-0.055) Glucose (Fingerstick) 142 mg/dL (70-99) 129 mg/dL (70-99) Test 06/21/19 11:42 Glucose (Fingerstick) 130 mg/dL (70-99) Assessment and Plan Assessmemt and Plan Problems Medical Problems: (1) Anemia Status: Acute (2) Atrial fibrillation with RVR Status: Acute (3) Chest pain Status: Acute (4) CHF (congestive heart failure) Status: Acute (5) Hypomagnesemia Status: Acute (6) Renal insufficiency Status: Acute (7) Shortness of breath Status: Acute (8) Tobacco abuse Status: Acute Chest pain CHF A. fib Coronary artery disease with bypass surgery, diabetes, hypertension, pacemaker, valve replacement, and tobacco abuse. Plan Cardiac monitoring Appreciate subspecialist input Serial enzymes Serial EKGs Home meds DVT prophylaxis Full code Discharge disposition pending Comment Review of Relevant I have reviewed the following items raul (where applicable) has been applied. Medications: Current Medications Medications (Trade) Dose Ordered Sig/William Route PRN Reason Start Time Stop Time Status Last Admin Dose Admin Allopurinol (Zyloprim) 100 mg DAILY PO 06/21/19 09:00 06/21/19 09:03 Isosorbide Mononitrate (Imdur) 30 mg DAILY PO 06/21/19 09:00 06/21/19 08:59 Atorvastatin Calcium (Lipitor) 80 mg QHS PO 06/20/19 21:00 06/20/19 21:41 Carvedilol (Coreg) 25 mg BIDWMEALS PO 06/20/19 21:00 06/20/19 22:53 DC 06/20/19 21:43 Lisinopril (Prinivil) 20 mg BID PO 06/20/19 21:00 06/20/19 22:53 DC 06/20/19 21:42 Hydrochlorothiazide (Microzide) 12.5 mg BID PO 06/20/19 21:00 06/20/19 22:53 DC 06/20/19 21:42 Metoprolol Succinate (Toprol Xl) 100 mg DAILY PO 06/21/19 09:00 06/21/19 09:00 Sacubitril/ Valsartan (Entresto 49 Mg-51 Mg) 1 tab BID PO 06/21/19 09:00 06/21/19 09:00 Furosemide (Lasix) 20 mg DAILY IVP 06/21/19 09:00 06/21/19 08:59 Metoprolol Succinate (Toprol Xl) 50 mg 1X ONCE PO 06/21/19 10:45 06/21/19 10:54 DC 06/21/19 11:45 SHANNA VALDOVINOS III DO Jun 21, 2019 12:22
--- NOTE | 2019-06-21 12:40 | NUR ---
INR elevated. Dr. Priest notified--hold Coumadin today. Hold metformin today
[2019-06-21] MEDS ORDERED: SACU1TAB7 PO (13:30)
[2019-06-21] MEDS ORDERED: FURO40TA4 PO (13:30)
[2019-06-21] MEDS ORDERED: ASPI-612 PO (13:30)
[2019-06-21 13:48] LABS: PROTHROMBIN TIME PATIENT 31.9 SEC (11.7-14.0)
[2019-06-21 14:25] LABS: CALCIUM 8.7 mg/dL (8.5-10.1); CREATININE 1.5 mg/dL (0.7-1.3); GFR 45.6
[2019-06-21 14:37] VITALS: BP 149/66
[2019-06-21] MEDS ORDERED: METO50TA4 PO (16:10)
[2019-06-21] MEDS ORDERED: WARF7.5T45 PO (16:10)
--- NOTE | 2019-06-21 16:24 | SNU/HH DC ---
DISCHARGE WITH HOME HEALTH DISCHARGE INFORMATION: Discharge Date: Jun 21, 2019 Final Diagnosis: Problems Medical Problems: (1) Anemia Status: Acute (2) Atrial fibrillation with RVR Status: Acute (3) Chest pain Status: Acute (4) CHF (congestive heart failure) Status: Acute (5) Hypomagnesemia Status: Acute (6) Renal insufficiency Status: Acute (7) Shortness of breath Status: Acute (8) Tobacco abuse Status: Acute Condition on Discharge: Stable CODE STATUS: Code Status: Full HOME HEALTH: Face to Face: I certify this patient is under my care and that I, or a nurse practitioner or physician's machine assistant working with me, had a face to face encounter that meets the physician face to face encounter requirements with this patient on []. Medical Complications: CHF, Other (AFIB, ICM, CAD) RN For Eval/Treatment: Yes Physical Therapy For: Evalulation/Treatment Occupational Therapy For: Evaluation/Treatment Home Health Aide For: Self-care Pt Meets Homebound Status: Limited distance walking POST DISCHARGE ORDERS: Activity Instructions for Disc: Activity as tolerated, Other, see below Weight Bearing Status after Di: Full weight bearing DIET AFTER DISCHARGE: Cardiac Wound/Incision Care: Keep wound/cast CDI CHECKS AFTER DISCHARGE: Checks after discharge: Check blood press - daily, Weigh Yourself Daily Comment: Fluid restriction 1500L to 2000L daily FOLLOW-UP: Follow up with: Dr. Perez July 28 at 1:45PM Warfarin Follow UP: INR 06/24/2019 Additional Instructions: BMP and Mg on 06/28/2019 TREATMENT/EQUIPMENT ORDERS: Adaptive Equipment Issued: None CERTIFICATION STATEMENT: Certification Statement: Certification Statement: Based on the above finding, I certify that this patient is confined to the home and needs intermittent custodial care, physical therapy and/or speech therapy, or continues to need occupational therapy.~ This patient is under my care, and I have initiated the establishment of the plan of care.~ This patient will be followed by myself or a community physician who will periodically review the plan of care. Home Meds Reported Medications Warfarin Sodium (WARFARIN SODIUM) 5 Mg Tablet, 5 MG PO MONTU for , #30 TAB TAKE ON THURSDAY AND Thursday06/20/19 Lisinopril/Hydrochlorothiazide (LISINOPRIL-HCTZ 20-12.5 MG TAB) 1 Each Tablet, 1 TAB PO BID for 06/20/19 Carvedilol (CARVEDILOL) 25 Mg Tablet, 25 MG PO BIDWMEALS for CARDIAC, TAB 06/20/19 Atorvastatin Calcium (Atorvastatin Calcium) 80 Mg Tablet, 80 MG PO DAILY for 06/20/19 Allopurinol (ALLOPURINOL) 100 Mg Tablet, 1 TAB PO DAILY for , #30 TAB 5 Refills 06/20/19 Isosorbide Mononitrate (ISOSORBIDE MONONITRATE ER) 30 Mg Tab.er.24h, 1 TAB PO DAILY, #30 TAB 5 Refills 12/11/17 Warfarin Sodium (COUMADIN) 10 Mg Tablet, [facility] , TAB next dose tonight 11/19 TAKES ON THU, THU,,THU,SAT 05/06/15 Metformin Hcl (METFORMIN HCL) 500 Mg Tablet, 500 MG PO BIDWMEALS for ANTI- DIABETIC, TAB 0 Refills Hold for 48 hours, next dose Tuesday 11/21 evening dose 05/06/15 Discontinued Reported Medications Allopurinol (ALLOPURINOL) 300 Mg Tablet, 1 TAB PO DAILY, #30 TAB 5 Refills 07/25/17 Simvastatin (SIMVASTATIN) 80 Mg Tablet, 80 MG PO HS for FOR CHOLESTEROL, #30 TAB 0 Refills 05/06/15 TORSTEN RODRIGUEZ APRN Jun 21, 2019 16:24
[2019-06-21] MEDS ORDERED: WARFARIN 5 MG TABLET. PO ONE (17:15)
--- NOTE | 2019-06-21 17:21 | NUR ---
Corky stated to take his coumadin. delfina keep inr between 2.5-3.1 patient states he will take at homealong with metformin. [facility] he will pharmacy picking technician delfina. instructed to restrict fluids to 1500 to 2liters at day. weigh himself verbalized understanding of these instructions
[2019-06-22] MEDS ORDERED: ASPIRIN ENTERIC COATED 81 MG TABLET.DR. PO SCH (08:00)
[2019-06-22] MEDS ORDERED: FUROSEMIDE 40 MG TABLET. PO SCH (09:00)
[2019-06-22] MEDS ORDERED: METOPROLOL SUCC 24HR ER 50 MG TAB.ER.24H. PO SCH (09:00)
== END 2019-06-21 17:37 | disposition home or self-care (01) | DRG 291 ==
LOC: ER 08:38 → ED HOLD 10:05 → 2 NORTH 11:16
PROVIDERS: ADMIT Internal Medicine; ATTEND Internal Medicine
DX: I13.0 Hypertensive heart and chronic kidney disease with heart failure and stage 1 through stage 4 chronic kidney disease, or unspecified chronic kidney disease (principal); I50.43 Acute on chronic combined systolic (congestive) and diastolic (congestive) heart failure; I25.10 Atherosclerotic heart disease of native coronary artery without angina pectoris; I48.91 Unspecified atrial fibrillation; N18.3 Chronic kidney disease, stage 3 (moderate); E11.22 Type 2 diabetes mellitus with diabetic chronic kidney disease; F17.200 Nicotine dependence, unspecified, uncomplicated; Z95.1 Presence of aortocoronary bypass graft; Z95.2 Presence of prosthetic heart valve; Z95.0 Presence of cardiac pacemaker; Z82.49 Family history of ischemic heart disease and other diseases of the circulatory system
CPT/HCPCS: 36415; 71045; 80048; 80053; 82550; 82962; 83735; 83880; 84484; 85025; 85610; 93005; J1940; J3475; G0378

== ENCOUNTER → 2019-07-25 | Outpatient (CLI) | payer BC, MEDICARE ==
[~2019-07-25] MED LIST changes: +ALLO100T PO; +ASPI-612 PO; +ATOR80TA72 PO; +FURO40TA4 PO; +METO50TA4 PO; +SACU1TAB7 PO; +WARF-31 PO; +WARF7.5T45 PO
--- NOTE | 2019-07-25 16:21 | RAD ---
EXAM: PA and Lateral Views of the Chest DATE: 07/25/2019 12:00 AM INDICATION: SHORTNESS OF BREATH COMPARISON: 06/20/2019, 10/17/2015 FINDINGS: Cardiac generator pack obscures a portion of the left chest with single lead in stable position. The heart is mildly enlarged. Aortic calcifications are seen. Changes of cardiothoracic surgery. Mediastinal and hilar contours are stable. Bilateral perihilar and left lung base airspace opacities are seen. Trace blunting left costophrenic angle likely trace pleural effusion. No pneumothorax. IMPRESSION: 1. Bilateral perihilar and left lung base airspace opacities are seen. Findings may represent developing consolidative process such as pneumonia. 2. Trace blunting left costophrenic angle likely trace pleural effusion. Electronically signed by: Robbin Fam MD (07/25/2019 4:18 PM) [id number]
== END | disposition home or self-care (01) ==
LOC: RAD 14:49
PROVIDERS: ATTEND Family Medicine
DX: R06.02 Shortness of breath (principal); I70.0 Atherosclerosis of aorta; I51.7 Cardiomegaly
CPT/HCPCS: 71046

== ENCOUNTER 2019-09-20 10:50 | Inpatient (IN) | payer BC, MEDICARE ==
[~2019-09-20] VITALS: Ht 182.9 cm; Wt 78.5 kg
[2019-09-20] MEDS ORDERED: IPRATRPIUM/ALBUTEROL 0.5/2.5MG 3 ML NEBU. NEB ONE (11:15)
[2019-09-20] MEDS ORDERED: methylPREDNISolone SOD SUCC PF 125 MG/2 ML VIAL. IV ONE (11:15)
[2019-09-20] MEDS ORDERED: dilTIAZem IV PUSH 25 MG/5 ML VIAL IVP ONE (11:15)
[2019-09-20 11:35] LABS: BASO # 0.1 x10^3/uL (0.0-0.2); BASO % 1 % (0-3); EOS # 0.1 x10^3/uL (0.0-0.7); EOS % 1 % (0-3); HEMATOCRIT 36.3 % (39.0-53.0); HEMOGLOBIN 12.1 g/dL (13.0-17.5); LYMPH # 1.5 x10^3/uL (1.0-4.8); LYMPH % 18 % (24-48); MEAN CORPUSCULAR HEMOGLOBIN 32 pg (25-35); MEAN CORPUSCULAR HGB CONC 33 g/dL (31-37); MEAN CORPUSCULAR VOLUME 95 fL (79-100); MONO # 0.6 x10^3/uL (0.0-1.1); MONO % 7 % (0-9); NEUT # 6.3 x10^3/uL (1.8-7.7); NEUT % 74 % (31-73); PLATELET COUNT 161 x10^3/uL (140-400); RED BLOOD COUNT 3.85 x10^6/uL (4.30-5.70); WHITE BLOOD COUNT 8.6 x10^3/uL (4.0-11.0)
[2019-09-20 11:41] LABS: CALCIUM 8.3 mg/dL (8.5-10.1); CREATININE 1.7 mg/dL (0.7-1.3); GFR 39.5; POTASSIUM 3.3 mmol/L (3.5-5.1)
[2019-09-20 11:47] LABS: ALBUMIN 3.1 g/dL (3.4-5.0); ALBUMIN/GLOBULIN RATIO 0.9 (1.0-1.7); TOTAL BILIRUBIN 0.8 mg/dL (0.2-1.0); TOTAL PROTEIN 6.6 g/dL (6.4-8.2)
--- NOTE | 2019-09-20 12:05 | RAD ---
CHEST AP ONLY History: Reason: cough, soa / Spl. Instructions: / History: Comparison: July 25, 2019 Findings: Ill-defined mid and basilar opacities. No pleural effusion. No pneumothorax. Stable left sided ICD. Prior median sternotomy. Enlarged heart size, unchanged. Impression: 1. Bilateral ill-defined opacities, may represent early pulmonary edema or infection including viral pneumonia although a component of chronic interstitial changes possible. 2. Cardiomegaly, unchanged. Electronically signed by: Vlad Lubin DO (09/20/2019 12:02 PM) [id number]
--- NOTE | 2019-09-20 12:15 | EKG ---
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
--- NOTE | 2019-09-20 12:57 | PHYS DOC ---
Past Medical History Past Medical History: Diabetes-Type II, High Cholesterol, Heart Disease, Hypertension Past Surgical History: Coronary Bypass Surgery, Pacemaker, Other Additional Past Surgical Histo: valve replacement Smoking Status: Current Every Day Smoker Alcohol Use: None Drug Use: None General Adult EDM: Chief Complaint: SHORTNESS OF BREATH HPI: HPI: Patient is a 74-year-old male with multiple medical problems including congestive heart failure and COPD who presents with a several day history of progressive shortness of breath. He presented earlier today to his primary care physician's office and she sent him over here because of his oxygen saturation being low. He has had no fever chills or sweats. He denies any hemoptysis. He states he has been taking his Lasix for congestive heart failure as prescribed. He denies any ongoing chest pain he states his primary problem is that anytime he tries to exert himself he becomes profoundly short of breath.] Review of Systems: Review of Systems: Constitutional: Denies fever or chills. [] Eyes: Denies change in visual acuity. [] HENT: Denies nasal congestion or sore throat. [] Respiratory: Per HPI. [] Cardiovascular: Denies chest pain or edema. [] GI: Denies abdominal pain, nausea, vomiting, bloody stools or diarrhea. [] : Denies dysuria. [] Musculoskeletal: Denies back pain or joint pain. [] Integument: Denies rash. [] Neurologic: Denies headache, focal weakness or sensory changes. [] Endocrine: Denies polyuria or polydipsia. [] Lymphatic: Denies swollen glands. [] Psychiatric: Denies depression or anxiety. [] Heart Score: Risk Factors: Risk Factors: DM, Current or recent (<one month) smoker, HTN, HLP, family history of CAD, obesity. Risk Scores: Score 0 - 3: 2.5% MACE over next 6 weeks - Discharge Home Score 4 - 6: 20.3% MACE over next 6 weeks - Admit for Clinical Observation Score 7 - 10: 72.7% MACE over next 6 weeks - Early Invasive Strategies Current Medications: Current Medications Medications (Trade) Dose Ordered Sig/William Start Time Stop Time Status Last Admin Dose Admin Albuterol/ Ipratropium (Duoneb) 3 ml 1X ONCE 09/20/19 11:15 09/20/19 11:16 DC 09/20/19 11:29 3 ML Diltiazem HCl (Cardizem Iv Push) 20 mg 1X ONCE 09/20/19 11:15 09/20/19 11:16 DC 09/20/19 11:30 20 MG Methylprednisolone Sodium Succinate (SOLU-Medrol 125MG VIAL) 125 mg 1X ONCE 09/20/19 11:15 09/20/19 11:16 DC 09/20/19 11:28 125 MG Allergies: Allergies: Allergies Coded Allergies Type Severity Reaction Last Updated Verified No Known Drug Allergies 05/05/15 No Physical Exam: PE: Constitutional: Well developed, well nourished, mild to moderate distress, non- toxic appearance. [] HENT: Normocephalic, atraumatic, bilateral external ears normal, oropharynx moist, no oral exudates, nose normal. [] Eyes: PERRLA, EOMI, conjunctiva normal, no discharge. [] Neck: Normal range of motion, no tenderness, supple, no stridor. [] Cardiovascular: Tachycardic irregularly irregular [] Lungs & Thorax: Bibasilar rales with scattered apical both anterior and posterior wheezes] Abdomen: Bowel sounds normal, soft, no tenderness, no masses, no pulsatile masses. [] Skin: Warm, dry, no erythema, no rash. [] Back: No tenderness, no CVA tenderness. [] Extremities: No tenderness, no cyanosis, no clubbing, ROM intact, no edema. [] Neurologic: Alert and oriented X 3, normal motor function, normal sensory function, no focal deficits noted. [] Psychologic: Affect normal, judgement normal, mood normal. [] Current Patient Data: Labs: Laboratory Tests Test 09/20/19 11:05 White Blood Count 8.6 x10^3/uL (4.0-11.0) Red Blood Count 3.85 x10^6/uL (4.30-5.70) L Hemoglobin 12.1 g/dL (13.0-17.5) L Hematocrit 36.3 % (39.0-53.0) L Mean Corpuscular Volume 95 fL (79-100) Mean Corpuscular Hemoglobin 32 pg (25-35) Mean Corpuscular Hemoglobin Concent 33 g/dL (31-37) Red Cell Distribution Width 16.0 % (11.5-14.5) H Platelet Count 161 x10^3/uL (140-400) Neutrophils (%) (Auto) 74 % (31-73) H Lymphocytes (%) (Auto) 18 % (24-48) L Monocytes (%) (Auto) 7 % (0-9) Eosinophils (%) (Auto) 1 % (0-3) Basophils (%) (Auto) 1 % (0-3) Neutrophils # (Auto) 6.3 x10^3/uL (1.8-7.7) Lymphocytes # (Auto) 1.5 x10^3/uL (1.0-4.8) Monocytes # (Auto) 0.6 x10^3/uL (0.0-1.1) Eosinophils # (Auto) 0.1 x10^3/uL (0.0-0.7) Basophils # (Auto) 0.1 x10^3/uL (0.0-0.2) Sodium Level 141 mmol/L (136-145) Potassium Level 3.3 mmol/L (3.5-5.1) L Chloride Level 101 mmol/L (98-107) Carbon Dioxide Level 29 mmol/L (21-32) Anion Gap 11 (6-14) Blood Urea Nitrogen 29 mg/dL (8-26) H Creatinine 1.7 mg/dL (0.7-1.3) H Estimated GFR (Cockcroft-Gault) 39.5 BUN/Creatinine Ratio 17 (6-20) Glucose Level 235 mg/dL (70-99) H Calcium Level 8.3 mg/dL (8.5-10.1) L Magnesium Level 1.0 mg/dL (1.8-2.4) L Total Bilirubin 0.8 mg/dL (0.2-1.0) Aspartate Amino Transferase (AST) 27 U/L (15-37) Alanine Aminotransferase (ALT) 32 U/L (16-63) Alkaline Phosphatase 105 U/L (46-116) Troponin I Quantitative 0.023 ng/mL (0.000-0.055) WQ-Uoc-V-Type Natriuretic Peptide > 25125 pg/mL (0-449) H Total Protein 6.6 g/dL (6.4-8.2) Albumin 3.1 g/dL (3.4-5.0) L Albumin/Globulin Ratio 0.9 (1.0-1.7) L Laboratory Tests 09/20/19 11:05 Laboratory Tests 09/20/19 11:05 Vital Signs: Vital Signs Date Time Temp Pulse Resp B/P (MAP) Pulse Ox O2 Delivery O2 Flow Rate FiO2 09/20/19 11:59 76 20 130/70 (90) 96 Room Air 09/20/19 10:59 97.8 97.8 EKG: EKG: EKG: Atrial fibrillation rate of [address] obvious ischemic [address]-T changes [] Radiology/Procedures: Radiology/Procedures: [] Impression: PROCEDURE: CHEST AP ONLY CHEST AP ONLY History: Reason: cough, soa / Spl. Instructions: / History: Comparison: July 25, 2019 Findings: Ill-defined mid and basilar opacities. No pleural effusion. No pneumothorax. Stable left sided ICD. Prior median sternotomy. Enlarged heart size, unchanged. Impression: 1. Bilateral ill-defined opacities, may represent early pulmonary edema or infection including viral pneumonia although a component of chronic interstitial changes possible. 2. Cardiomegaly, unchanged. Course & Med Decision Making: Course & Med Decision Making Pertinent Labs and Imaging studies reviewed. (See chart for details) [ED course: Evaluation reveals a 74-year-old male with rapid atrial fibrillation. He was given 20 mg of Cardizem which did control his rate is now in the 80s and feel much better. His BNP was greater than 35,000 and his chest x-ray did show evidence of interstitial edema so was given 80 mg of Lasix. With his history of COPD and the wheezing on presentation he was given 125 of Solu- Medrol and a DuoNeb which did alleviate the wheezing. His oxygen saturation i mproved while he was in the emergency department. We will go ahead and get him admitted to the hospital under the care of the hospitalist with cardiology consult.] CRITICAL CARE: Time spent was 35 minutes. This includes medical management, evaluation, reevaluation, discussion with consultants and family. Critical Care does NOT include time spent on separately billed procedures. Dragon Disclaimer: Dragon Disclaimer: This electronic medical record was generated, in whole or in part, using a voice recognition dictation system. Departure Departure Impression: Primary Impression: Rapid atrial fibrillation Additional Impressions: COPD with exacerbation Congestive heart failure Qualified Codes: I50.40 - Unspecified combined systolic (congestive) and diastolic (congestive) heart failure Disposition: 09 ADMITTED INPATIENT Admitting Physician: IMER Condition: GUARDED Referrals: COLLETTE REYNA MD (PCP) Justicifation of Admission Dx: Justifications for Admission: Justification of Admission Dx: Yes CHF: Cardiac Arrhythmias GABY RANGEL DO Sep 20, 2019 12:57
[2019-09-20] MEDS ORDERED: FUROSEMIDE 100 MG/10 ML VIAL. IVP ONE (13:00)
[2019-09-20] MEDS ORDERED: ONDANSETRON PF 4 MG/2 ML VIAL. IV PRN (13:15)
[2019-09-20] MEDS ORDERED: ACETAMINOPHEN 325 MG TABLET. PO PRN ×2 (13:15→15:15)
--- NOTE | 2019-09-20 14:03 | PDOC2 ---
CARDIAC CONSULT DATE OF CONSULT Date of Consult DATE: 09/20/19 TIME: 13:46 REASON FOR CONSULT Reason for Consult: Rapid AFIB REFERRING PHYSICIAN Referring Physician: Jordyn SOURCE Source: Chart review, Patient HISTORY OF PRESENT ILLNESS HISTORY OF PRESENT ILLNESS This is a pleasant 74 yo male admitted for complains of shortness of breath. since Thursday he has been having periods of PND and was orthopneic and complain ing of insomnia. He also has been having palpitations that intermittently occurs. No chest pain, diaphoresis, wheezing. No intractable coughing and has been compliant with his medications, HF regimen including FR and low salt diet. H has COPD but does not appear to have exacerbation and no complains of any recent respiratory infection. He was at [facility] at least thats what he could remember and could not tell me when exactly but was recent. His ankle has been more swollen lately. Pt is not a reliable historian when it comes to event of his recent hospitalization and accuracy of his meds. It appears that his entresto has been increased likely prior to DC from [facility] but may have not filled it and was noted to have been complaining to have been out of entresto for 2 weeks. PAST MEDICAL HISTORY Cardiovascular: AFIB, CAD, CHF, HTN, Valve insufficiency, Other (ICM) Pulmonary: COPD CENTRAL NERVOUS SYSTEM: Other (No pertinent history) Heme/Onc: No pertinent hx Hepatobiliary: No pertinent hx Musculoskeletal: Osteoarthritis Infectious disease: No pertinent hx ENT: No pertinent hx Endocrine: Diabetes (2) Dermatology: No pertinent hx PAST SURGICAL HISTORY Past Surgical History: Pacemaker (AICD), CABG FAMILY HISTORY Family History noncontributory SOCIAL HISTORY Smoke: <1 pack per day ALCOHOL: none Drugs: None Lives: with Family CURRENT MEDICATIONS CURRENT MEDICATIONS Current Medications Medications (Trade) Dose Ordered Sig/William Route PRN Reason Start Time Stop Time Status Last Admin Dose Admin Albuterol/ Ipratropium (Duoneb) 3 ml 1X ONCE NEB 09/20/19 11:15 09/20/19 11:16 DC 09/20/19 11:29 Methylprednisolone Sodium Succinate (SOLU-Medrol 125MG VIAL) 125 mg 1X ONCE IV 09/20/19 11:15 09/20/19 11:16 DC 09/20/19 11:28 Diltiazem HCl (Cardizem Iv Push) 20 mg 1X ONCE IVP 09/20/19 11:15 09/20/19 11:16 DC 09/20/19 11:30 ALLERGIES ALLERGIES: Coded Allergies: No Known Drug Allergies (Unverified , 05/05/15) ROS Review of System 14 point ROS evaluated with pertinent positives noted per HPI PHYSICAL EXAM General: Alert, Oriented X3, Cooperative, No acute distress HEENT: Atraumatic, Mucous membr. moist/pink Lungs: Other (diminished bases) Heart: Other (AFIB) Abdomen: Soft Extremities: No cyanosis, Other (2+ pedal edema) Skin: No breakdown, No significant lesion Neuro: Normal speech, Sensation intact Psych/Mental Status: Mental status NL, Mood NL MUSCULOSKELETAL: Osteoarthritic changes both hands VITALS/I&O VITALS/I&O: Vital Signs Date Time Temp Pulse Resp B/P (MAP) Pulse Ox O2 Delivery O2 Flow Rate FiO2 09/20/19 11:59 76 20 130/70 (90) 96 Room Air 09/20/19 10:59 97.8 97.8 LABS Lab: Laboratory Tests Test 09/20/19 11:05 White Blood Count 8.6 x10^3/uL (4.0-11.0) Red Blood Count 3.85 x10^6/uL (4.30-5.70) L Hemoglobin 12.1 g/dL (13.0-17.5) L Hematocrit 36.3 % (39.0-53.0) L Mean Corpuscular Volume 95 fL (79-100) Mean Corpuscular Hemoglobin 32 pg (25-35) Mean Corpuscular Hemoglobin Concent 33 g/dL (31-37) Red Cell Distribution Width 16.0 % (11.5-14.5) H Platelet Count 161 x10^3/uL (140-400) Neutrophils (%) (Auto) 74 % (31-73) H Lymphocytes (%) (Auto) 18 % (24-48) L Monocytes (%) (Auto) 7 % (0-9) Eosinophils (%) (Auto) 1 % (0-3) Basophils (%) (Auto) 1 % (0-3) Neutrophils # (Auto) 6.3 x10^3/uL (1.8-7.7) Lymphocytes # (Auto) 1.5 x10^3/uL (1.0-4.8) Monocytes # (Auto) 0.6 x10^3/uL (0.0-1.1) Eosinophils # (Auto) 0.1 x10^3/uL (0.0-0.7) Basophils # (Auto) 0.1 x10^3/uL (0.0-0.2) Sodium Level 141 mmol/L (136-145) Potassium Level 3.3 mmol/L (3.5-5.1) L Chloride Level 101 mmol/L (98-107) Carbon Dioxide Level 29 mmol/L (21-32) Anion Gap 11 (6-14) Blood Urea Nitrogen 29 mg/dL (8-26) H Creatinine 1.7 mg/dL (0.7-1.3) H Estimated GFR (Cockcroft-Gault) 39.5 BUN/Creatinine Ratio 17 (6-20) Glucose Level 235 mg/dL (70-99) H Calcium Level 8.3 mg/dL (8.5-10.1) L Magnesium Level 1.0 mg/dL (1.8-2.4) L Total Bilirubin 0.8 mg/dL (0.2-1.0) Aspartate Amino Transferase (AST) 27 U/L (15-37) Alanine Aminotransferase (ALT) 32 U/L (16-63) Alkaline Phosphatase 105 U/L (46-116) Troponin I Quantitative 0.023 ng/mL (0.000-0.055) GM-Msy-F-Type Natriuretic Peptide > 19778 pg/mL (0-449) H Total Protein 6.6 g/dL (6.4-8.2) Albumin 3.1 g/dL (3.4-5.0) L Albumin/Globulin Ratio 0.9 (1.0-1.7) L Laboratory Tests 09/20/19 11:05 Laboratory Tests 09/20/19 11:05 ECHOCARDIOGRAM ECHOCARDIOGRAM <Conclusion> The ejection fraction is severely impaired. The Ejection Fraction is 15-20% There is severe global hypokinesis of the left ventricle. There is a pacemaker/ICD lead in the RV/RA The mechanical aortic valve is not well visualized due to imaging artifacts from the prosthesis. Doppler revealed a max pressure gradient of 17 mmHg and a mean pressure gradient of 7 mmHg. Doppler and Color Flow revealed mild to moderate aortic regurgitation. Doppler and Color Flow revealed trace to mild tricuspid regurgitation. PAP is estimated at 36 mmHg. DATE: 05/25/19 1042 HEART CATH HEART CATH CORONARY ANGIOGRAPHY: LM is a large caliber vessel with mild luminal irregularities. LAD is a moderate sized vessel with an ostial 100% occlusion. The distal vessel fills via patent NICKOLAS graft and has no significant obstructive disease. LCX is a non-dominant vessel with a proximal 40-50% stenosis that terminates into a moderates sized LPL without significant disease. OM1 has a proximal subtotal occlusion and fills via a patent vein graft and has no significant disease. Ramus is a ostially occluded and fills via a patent vein graft and has no significant disease. RCA has a mid 100% occlusion. The distal vessel fills via a patent vein graft and has no significant disease. BYPASS ANGIOGRAPHY: GUTIERREZ to LAD - widely patent without anastomotic stenosis. SVG to RCA - widely patent without anastomotic stenosis. SVG to OM1 - has a distal 50% anastomotic stenosis. SVG to Ramus - widely patent without anastomotic stenosis. Conclusion 1. Severe [place] three vessel coronary artery disease. 2. 4/4 grafts patent. Recommendations Smoking Cessation Aggressive Medical Therapy DATE: 05/08/15 1656 ASSESSMENT/PLAN ASSESSMENT/PLAN 1. Acute on chronic diastolic/systolic CHF: SOA better, received 80 mg lasix in ED 2. Persistent AFIB with RVR: single lead dual chamber sensing. Rate better after receiving cardizem IV 3. CAD: past CABG, clinically stable 4. Mechanical AVR 5. ICM: EF 15-20% NYHA 2 6. AICD: VDIR 7. DIOGENES on CKD3 8. COPD with continued tobaccoism 9. Coagulopathy: with coumadin. INR at 5.3, no bleed 10. Hypokalemia with severe hypomagnesemia 11. Covid PUI Recommendations 1. Will obtain accurate med list and [facility] records. Pt has been in AFIB since 02/2019. Impedances revealed increasing volume from 4 days ago consistent with his symptoms. Given his multiple hospitalization with persistent dyspnea will consider for RHC to note intracardiac gradients and guide further therapy and possible SHEELA/CVN as well on pending records obtained from [facility]. 2. Will consult pulmonary to further evaluate any significant pulmonary contributors to his dyspnea. 3. Replace K and Mg. BMP and Mg in AM 4. Pulmonary consult pending. 5. Metoprolol for rate control. Hold coumadin. Hold entresto for now. 6. Monitor renal function. Lasix therapy. 7. Smoking cessation. TORSTEN RODRIGUEZ MARKETING AND OUTREACH COORDINATOR Sep 20, 2019 14:03
[2019-09-20] MEDS ORDERED: MAGNESIUM SULFATE 4GM 100 ML IV ONE (14:15)
[2019-09-20] MEDS ORDERED: POTASSIUM CHLORIDE 20 MEQ TABLET.ER. PO ONE (14:15)
[2019-09-20 14:28] LABS: PROTHROMBIN TIME PATIENT 49.5 SEC (11.7-14.0)
--- NOTE | 2019-09-20 15:02 | PDOC1 ---
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 Went to his PCP office who sent him to ER bc of low saturations. denies any fever chills or sweats. patient takes home lasix as prescribed. no chest pain per patient. given breathing treatments in ER with improvement. also given 80 mg IV lasix in ED. noted elevated BNP greater than 3500 in ED. HR elevated in ED and given cardizem 20 mg with improvement chest xray in ED: 1. Bilateral ill-defined opacities, may represent early pulmonary edema or infection including viral pneumonia although a component of chronic interstitial changes possible. 2. Cardiomegaly, unchanged. hospitalist called for admission and further evaluation. Past Medical History Cardiovascular: CAD, CHF, HTN, [place], Syncope, Hyperlipidemia, Other Pulmonary: Bronchitis GI: GERD Endocrine: Diabetes Past Surgical History Past Surgical History: Pacemaker, CABG, Other Family History Family History reviewed and denies Social History Smoke: No ALCOHOL: none Drugs: None Current Problem List Problem List Problems Medical Problems: (1) Congestive heart failure Status: Acute (2) COPD with exacerbation Status: Acute (3) Rapid atrial fibrillation Status: Acute Current Medications Current Medications Current Medications Albuterol/ Ipratropium (Duoneb) 3 ml 1X ONCE NEB Last administered on 09/20/19at 11:29; Start 09/20/19 at 11:15; Stop 09/20/19 at 11:16; Status DC Methylprednisolone Sodium Succinate (SOLU-Medrol 125MG VIAL) 125 mg 1X ONCE IV Last administered on 09/20/19at 11:28; Start 09/20/19 at 11:15; Stop 09/20/19 at 11:16; Status DC Diltiazem HCl (Cardizem Iv Push) 20 mg 1X ONCE IVP Last administered on 09/20/19at 11:30; Start 09/20/19 at 11:15; Stop 09/20/19 at 11:16; Status DC Furosemide (Lasix) 80 mg 1X ONCE IVP Last administered on 09/20/19at 13:46; Start 09/20/19 at 13:00; Stop 09/20/19 at 13:01; Status DC Ondansetron HCl (Zofran) 4 mg PRN Q8HRS PRN IV NAUSEA/VOMITING; Start 09/20/19 at 13:15; Stop 09/21/19 at 13:14 Acetaminophen (Tylenol) 650 mg PRN Q4HRS PRN PO FEVER > 100.3'F; Start 09/20/19 at 13:15; Stop 09/21/19 at 13:14 Albuterol/ Ipratropium (Duoneb) 3 ml RTQID NEB ; Start 09/20/19 at 16:00; Stop 09/21/19 at 15:59 Magnesium Sulfate 100 ml @ 25 mls/hr 1X ONCE IV ; Start 09/20/19 at 14:15; Stop 09/20/19 at 18:14 Potassium Chloride (Klor-Con) 40 meq 1X ONCE PO ; Start 09/20/19 at 14:15; Stop 09/20/19 at 14:16; Status DC Active Scripts Active Warfarin Sodium 7.5 Mg Tablet 7.5 Mg PO UD Toprol XL (Metoprolol Succinate) 50 Mg Tab.er.24h 150 Mg PO DAILY Furosemide 40 Mg Tablet 40 Mg PO DAILY Aspirin Ec (Aspirin) 81 Mg Tablet.dr 81 Mg PO DAILYWBKFT Entresto 49 mg-51 mg Tablet (Sacubitril/Valsartan) 1 Each Tablet 1 Tab PO BID Reported Warfarin Sodium 5 Mg Tablet 5 Mg PO MONTU TAKE ON THURSDAY AND THURSDAY Atorvastatin Calcium 80 Mg Tablet 80 Mg PO DAILY Allopurinol 100 Mg Tablet 1 Tab PO DAILY Isosorbide Mononitrate Er (Isosorbide Mononitrate) 30 Mg Tab.er.24h 1 Tab PO DAILY Metformin Hcl 500 Mg Tablet 500 Mg PO BIDWMEALS Hold for 48 hours, next dose Tuesday 11/21 evening dose Allergies Allergies: Coded Allergies: No Known Drug Allergies (Unverified , 05/05/15) ROS Review of System CONSTITUTIONAL: No fever or chills EYES: No recent changes SKIN: No rash or itching CARDIOVASCULAR: No chest pain, syncope, palpitations, or edema RESPIRATORY: sob GASTROINTESTINAL: No nausea, vomiting or abdominal pain NEUROLOGICAL: No headaches or weakness ENDOCRINE: No cold or heat intolerance GENITOURINARY: No urgency or frequency of urination MUSCULOSKELETAL: No back pain or joint pain LYMPHATICS: No enlarged lymph nodes PSYCHIATRIC: No anxiety or depression Physical Exam Physical Exam GENERAL: No apparent distress. Alert and oriented. HEENT: Head normocephalic, atraumatic. NECK: Supple LUNGS: Clear to auscultation. HEART: RRR, S1, S2 present, pulses intact ABDOMEN: Soft, positive bowel sounds. EXTREMITIES: No cyanosis or edema. NEUROLOGIC: Normal speech, normal tone PSYCHIATRIC: Normal affect, normal mood. SKIN: No ulceration. Vitals Vitals Vital Signs Date Time Temp Pulse Resp B/P (MAP) Pulse Ox O2 Delivery O2 Flow Rate FiO2 09/20/19 11:59 76 20 130/70 (90) 96 Room Air 09/20/19 10:59 97.8 97.8 Labs Labs Laboratory Tests Test 09/20/19 11:05 White Blood Count 8.6 x10^3/uL (4.0-11.0) Red Blood Count 3.85 x10^6/uL (4.30-5.70) Hemoglobin 12.1 g/dL (13.0-17.5) Hematocrit 36.3 % (39.0-53.0) Mean Corpuscular Volume 95 fL (79-100) Mean Corpuscular Hemoglobin 32 pg (25-35) Mean Corpuscular Hemoglobin Concent 33 g/dL (31-37) Red Cell Distribution Width 16.0 % (11.5-14.5) Platelet Count 161 x10^3/uL (140-400) Neutrophils (%) (Auto) 74 % (31-73) Lymphocytes (%) (Auto) 18 % (24-48) Monocytes (%) (Auto) 7 % (0-9) Eosinophils (%) (Auto) 1 % (0-3) Basophils (%) (Auto) 1 % (0-3) Neutrophils # (Auto) 6.3 x10^3/uL (1.8-7.7) Lymphocytes # (Auto) 1.5 x10^3/uL (1.0-4.8) Monocytes # (Auto) 0.6 x10^3/uL (0.0-1.1) Eosinophils # (Auto) 0.1 x10^3/uL (0.0-0.7) Basophils # (Auto) 0.1 x10^3/uL (0.0-0.2) Prothrombin Time 49.5 SEC (11.7-14.0) Prothromb Time International Ratio 5.3 (0.8-1.1) Sodium Level 141 mmol/L (136-145) Potassium Level 3.3 mmol/L (3.5-5.1) Chloride Level 101 mmol/L (98-107) Carbon Dioxide Level 29 mmol/L (21-32) Anion Gap 11 (6-14) Blood Urea Nitrogen 29 mg/dL (8-26) Creatinine 1.7 mg/dL (0.7-1.3) Estimated GFR (Cockcroft-Gault) 39.5 BUN/Creatinine Ratio 17 (6-20) Glucose Level 235 mg/dL (70-99) Calcium Level 8.3 mg/dL (8.5-10.1) Magnesium Level 1.0 mg/dL (1.8-2.4) Total Bilirubin 0.8 mg/dL (0.2-1.0) Aspartate Amino Transf (AST/SGOT) 27 U/L (15-37) Alanine Aminotransferase (ALT/SGPT) 32 U/L (16-63) Alkaline Phosphatase 105 U/L (46-116) Troponin I Quantitative 0.023 ng/mL (0.000-0.055) UJ-Tzo-I-Type Natriuretic Peptide > 53602 pg/mL (0-449) Total Protein 6.6 g/dL (6.4-8.2) Albumin 3.1 g/dL (3.4-5.0) Albumin/Globulin Ratio 0.9 (1.0-1.7) Laboratory Tests Test 09/20/19 11:05 White Blood Count 8.6 x10^3/uL (4.0-11.0) Red Blood Count 3.85 x10^6/uL (4.30-5.70) Hemoglobin 12.1 g/dL (13.0-17.5) Hematocrit 36.3 % (39.0-53.0) Mean Corpuscular Volume 95 fL (79-100) Mean Corpuscular Hemoglobin 32 pg (25-35) Mean Corpuscular Hemoglobin Concent 33 g/dL (31-37) Red Cell Distribution Width 16.0 % (11.5-14.5) Platelet Count 161 x10^3/uL (140-400) Neutrophils (%) (Auto) 74 % (31-73) Lymphocytes (%) (Auto) 18 % (24-48) Monocytes (%) (Auto) 7 % (0-9) Eosinophils (%) (Auto) 1 % (0-3) Basophils (%) (Auto) 1 % (0-3) Neutrophils # (Auto) 6.3 x10^3/uL (1.8-7.7) Lymphocytes # (Auto) 1.5 x10^3/uL (1.0-4.8) Monocytes # (Auto) 0.6 x10^3/uL (0.0-1.1) Eosinophils # (Auto) 0.1 x10^3/uL (0.0-0.7) Basophils # (Auto) 0.1 x10^3/uL (0.0-0.2) Prothrombin Time 49.5 SEC (11.7-14.0) Prothromb Time International Ratio 5.3 (0.8-1.1) Sodium Level 141 mmol/L (136-145) Potassium Level 3.3 mmol/L (3.5-5.1) Chloride Level 101 mmol/L (98-107) Carbon Dioxide Level 29 mmol/L (21-32) Anion Gap 11 (6-14) Blood Urea Nitrogen 29 mg/dL (8-26) Creatinine 1.7 mg/dL (0.7-1.3) Estimated GFR (Cockcroft-Gault) 39.5 BUN/Creatinine Ratio 17 (6-20) Glucose Level 235 mg/dL (70-99) Calcium Level 8.3 mg/dL (8.5-10.1) Magnesium Level 1.0 mg/dL (1.8-2.4) Total Bilirubin 0.8 mg/dL (0.2-1.0) Aspartate Amino Transf (AST/SGOT) 27 U/L (15-37) Alanine Aminotransferase (ALT/SGPT) 32 U/L (16-63) Alkaline Phosphatase 105 U/L (46-116) Troponin I Quantitative 0.023 ng/mL (0.000-0.055) AA-Lox-G-Type Natriuretic Peptide > 13912 pg/mL (0-449) Total Protein 6.6 g/dL (6.4-8.2) Albumin 3.1 g/dL (3.4-5.0) Albumin/Globulin Ratio 0.9 (1.0-1.7) VTE Prophylaxis Ordered VTE Prophylaxis Devices: Yes VTE Pharmacological Prophylaxi: Yes Assessment/Plan Assessment/Plan ASSESSMENT Acute on chronic diastolic/systolic CHF AFIB RVR CAD: past CABG. Mechanical AVR ICM: EF 15-20% AICD CKD3 Coagulopathy with INR 5.2 admission chronic oral AC PLAN dose of lasix already given in ED. watch volume status hold coumadin given elevated INR continue Entresto, lipitor, imdur, baby ASA cards consult given respiratory symptoms will check covid screen dvt ppx: elevated INR full code daily labs, watch cr med rec completed. Justicifation of Admission Dx: Justifications for Admission: Justification of Admission Dx: Yes CHF: Cardiac Arrhythmias Problem Qualifiers (1) Congestive heart failure: Heart failure type: combined systolic and diastolic Heart failure chronicity: unspecified Qualified Codes: I50.40 - Unspecified combined systolic (congestive) and diastolic (congestive) heart failure FLAKITO YEE MD Sep 20, 2019 15:02
[2019-09-20] MEDS: METOPROLOL TART IMMED RELEASE 25 MG TABLET. PO SCH ×2 (15:45→16:44)
[2019-09-20] MEDS: IPRATRPIUM/ALBUTEROL 0.5/2.5MG 3 ML NEBU. NEB SCH ×2 (16:00→19:36)
[2019-09-20 16:30] VITALS: BP 149/76
--- NOTE | 2019-09-20 18:29 | NUR ---
The patient, SHELLY COREAS, 74 y/o, M admitted by FLAKITO YEE MD, was given written information regarding hospital policies, unit procedures and contact persons. Valuables were checked.
[2019-09-20] MEDS ORDERED: CARV25TA PO (18:57)
[2019-09-20] MEDS ORDERED: WARF10TA40 PO (18:57)
[2019-09-20] MEDS ORDERED: SACU1TAB PO (18:57)
[2019-09-20] MEDS ORDERED: VENTOLIN HFA18 GM INH (18:57)
[2019-09-20 19:00] VITALS: BP 129/73
[2019-09-20] MEDS ORDERED: SACUBITRIL/VALSARTAN 49/51MG TABLET. PO SCH (21:00)
[2019-09-20] MEDS: ATORVASTATIN CALCIUM 40 MG TABLET. PO SCH (22:21)
[2019-09-20 23:00] VITALS: BP 141/89
[2019-09-21 03:00] VITALS: BP 133/82
[2019-09-21 04:59] LABS: BASO % 0 % (0-3); EOS % 0 % (0-3); HEMATOCRIT 36.4 % (39.0-53.0); HEMOGLOBIN 12.2 g/dL (13.0-17.5); LYMPH # 0.9 x10^3/uL (1.0-4.8); LYMPH % 9 % (24-48); MEAN CORPUSCULAR HEMOGLOBIN 31 pg (25-35); MEAN CORPUSCULAR HGB CONC 34 g/dL (31-37); MEAN CORPUSCULAR VOLUME 94 fL (79-100); MONO # 0.5 x10^3/uL (0.0-1.1); MONO % 5 % (0-9); NEUT # 9.3 x10^3/uL (1.8-7.7); NEUT % 86 % (31-73); PLATELET COUNT 165 x10^3/uL (140-400); RED BLOOD COUNT 3.88 x10^6/uL (4.30-5.70); RED CELL DISTRIBUTION WIDTH 15.6 % (11.5-14.5); WHITE BLOOD COUNT 10.8 x10^3/uL (4.0-11.0)
[2019-09-21 05:27] LABS: ALBUMIN/GLOBULIN RATIO 0.8 (1.0-1.7); CALCIUM 8.4 mg/dL (8.5-10.1); CREATININE 2.1 mg/dL (0.7-1.3); GFR 30.9; MAGNESIUM 1.9 mg/dL (1.8-2.4); POTASSIUM 3.8 mmol/L (3.5-5.1); TOTAL BILIRUBIN 0.7 mg/dL (0.2-1.0); TOTAL PROTEIN 6.6 g/dL (6.4-8.2)
[2019-09-21 05:43] LABS: % BANDS 4 % (0-9); % LYMPHS 5 % (24-48); % MONOS 4 % (0-10); % SEGS 87 % (35-66); PLT ESTIMATE ADEQUATE (ADEQUATE)
[2019-09-21 07:00] VITALS: BP 136/75
[2019-09-21] MEDS: IPRATRPIUM/ALBUTEROL 0.5/2.5MG 3 ML NEBU. NEB SCH ×2 (08:00→12:00)
[2019-09-21] MEDS: FUROSEMIDE 40 MG/4 ML VIAL. IVP SCH ×2 (09:00→16:46)
--- NOTE | 2019-09-21 09:00 | NUR ---
FUROSEMIDE HELD AT THIS TIME PER ORDERS RECEIVED BY SAMANTHA.
--- NOTE | 2019-09-21 09:14 | NUR ---
SW following. Discussed with RN, pt from home, gets around fine, room air. Pt is COVID-19 pending. SW will continue to follow.
[2019-09-21] MEDS: ALLOPURINOL 100 MG TABLET. PO SCH (10:00)
[2019-09-21] MEDS: ISOSORBIDE MONONITRATE ER 30 MG TAB.ER.24H PO SCH (10:00)
[2019-09-21] MEDS: METOPROLOL SUCC 24HR ER 50 MG TAB.ER.24H. PO SCH (10:01)
[2019-09-21] MEDS: ASPIRIN ENTERIC COATED 81 MG TABLET.DR. PO SCH (10:01)
[2019-09-21] MEDS ORDERED: DIGOXIN IV 500 MCG/2 ML AMPUL. IV ONE (10:15)
--- NOTE | 2019-09-21 10:18 | PDOC ---
TORSTEN RODRIGUEZ CONSTRUCTION CONSULTANT 09/21/19 1018: CARDIO Progress Notes Date and Time Date of Service 09/21/2019 Time of Evaluation 1000 Subjective Subjective: No Chest Pain, No shortness of breath, No Palpitations Vitals Vitals Vital Signs Date Time Temp Pulse Resp B/P (MAP) Pulse Ox O2 Delivery O2 Flow Rate FiO2 09/21/19 10:01 103 136/75 09/21/19 07:00 97.0 19 92 Room Air 97.0 Weight Weight [ ] Input and Output Intake and Output Intake and Output 09/21/19 07:00 Intake Total 780 ml Output Total 250 ml Balance 530 ml Intake Oral 780 ml Output Urine Total 250 ml # Voids 4 Laboratory Labs Laboratory Tests Test 09/20/19 11:05 09/20/19 16:05 09/20/19 19:00 09/21/19 04:00 White Blood Count 8.6 x10^3/uL (4.0-11.0) 10.8 x10^3/uL (4.0-11.0) Red Blood Count 3.85 x10^6/uL (4.30-5.70) 3.88 x10^6/uL (4.30-5.70) Hemoglobin 12.1 g/dL (13.0-17.5) 12.2 g/dL (13.0-17.5) Hematocrit 36.3 % (39.0-53.0) 36.4 % (39.0-53.0) Mean Corpuscular Volume 95 fL (79-100) 94 fL (79-100) Mean Corpuscular Hemoglobin 32 pg (25-35) 31 pg (25-35) Mean Corpuscular Hemoglobin Concent 33 g/dL (31-37) 34 g/dL (31-37) Red Cell Distribution Width 16.0 % (11.5-14.5) 15.6 % (11.5-14.5) Platelet Count 161 x10^3/uL (140-400) 165 x10^3/uL (140-400) Neutrophils (%) (Auto) 74 % (31-73) 86 % (31-73) Lymphocytes (%) (Auto) 18 % (24-48) 9 % (24-48) Monocytes (%) (Auto) 7 % (0-9) 5 % (0-9) Eosinophils (%) (Auto) 1 % (0-3) 0 % (0-3) Basophils (%) (Auto) 1 % (0-3) 0 % (0-3) Neutrophils # (Auto) 6.3 x10^3/uL (1.8-7.7) 9.3 x10^3/uL (1.8-7.7) Lymphocytes # (Auto) 1.5 x10^3/uL (1.0-4.8) 0.9 x10^3/uL (1.0-4.8) Monocytes # (Auto) 0.6 x10^3/uL (0.0-1.1) 0.5 x10^3/uL (0.0-1.1) Eosinophils # (Auto) 0.1 x10^3/uL (0.0-0.7) 0.0 x10^3/uL (0.0-0.7) Basophils # (Auto) 0.1 x10^3/uL (0.0-0.2) 0.0 x10^3/uL (0.0-0.2) Prothrombin Time 49.5 SEC (11.7-14.0) Prothromb Time International Ratio 5.3 (0.8-1.1) Sodium Level 141 mmol/L (136-145) 136 mmol/L (136-145) Potassium Level 3.3 mmol/L (3.5-5.1) 3.8 mmol/L (3.5-5.1) Chloride Level 101 mmol/L (98-107) 98 mmol/L (98-107) Carbon Dioxide Level 29 mmol/L (21-32) 23 mmol/L (21-32) Anion Gap 11 (6-14) 15 (6-14) Blood Urea Nitrogen 29 mg/dL (8-26) 40 mg/dL (8-26) Creatinine 1.7 mg/dL (0.7-1.3) 2.1 mg/dL (0.7-1.3) Estimated GFR (Cockcroft-Gault) 39.5 30.9 BUN/Creatinine Ratio 17 (6-20) 19 (6-20) Glucose Level 235 mg/dL (70-99) 313 mg/dL (70-99) Calcium Level 8.3 mg/dL (8.5-10.1) 8.4 mg/dL (8.5-10.1) Magnesium Level 1.0 mg/dL (1.8-2.4) 1.9 mg/dL (1.8-2.4) Total Bilirubin 0.8 mg/dL (0.2-1.0) 0.7 mg/dL (0.2-1.0) Aspartate Amino Transf (AST/SGOT) 27 U/L (15-37) 20 U/L (15-37) Alanine Aminotransferase (ALT/SGPT) 32 U/L (16-63) 30 U/L (16-63) Alkaline Phosphatase 105 U/L (46-116) 106 U/L (46-116) Troponin I Quantitative 0.023 ng/mL (0.000-0.055) 0.030 ng/mL (0.000-0.055) < 0.017 ng/mL (0.000-0.055) HM-Cik-O-Type Natriuretic Peptide > 75563 pg/mL (0-449) Total Protein 6.6 g/dL (6.4-8.2) 6.6 g/dL (6.4-8.2) Albumin 3.1 g/dL (3.4-5.0) 3.0 g/dL (3.4-5.0) Albumin/Globulin Ratio 0.9 (1.0-1.7) 0.8 (1.0-1.7) Thyroid Stimulating Hormone (TSH) 1.757 uIU/mL (0.358-3.74) Segmented Neutrophils % 87 % (35-66) Band Neutrophils % 4 % (0-9) Lymphocytes % 5 % (24-48) Monocytes % 4 % (0-10) Platelet Estimate Adequate (ADEQUATE) Physical Exam Chest: Symmetric LUNGS: Other (diminished ) Heart: irregularly irregular (AFIB RVR) Abdomen: Soft N/T Extremities: Other (1+ pedal edema) Neurology: alert, oriented, follow commands Assessment Assessment 1. Acute on chronic diastolic/systolic CHF: compensated. SOA much better 2. Persistent AFIB with RVR: single lead dual chamber sensing. Remains in RVR 3. CAD: past CABG, clinically stable 4. Mechanical AVR 5. ICM: EF 15-20% NYHA 2 6. AICD: VDIR 7. DIOGENES on CKD3: Cr up to 2.1, likely cardiorenal syndrome 8. COPD with continued tobaccoism: pulmonary following 9. Coagulopathy: with coumadin. INR down to 3.9, no bleed 10. Hypokalemia with severe hypomagnesemia: resolved 11. Covid PUI: pending Recommendations 1. Awaiting [facility] records. Refaxed request. Pt has been in AFIB since 02/2019. Impedances revealed increasing volume from 4 days ago consistent with his symptoms. Given his multiple hospitalization with persistent dyspnea will consider for RHC to note intracardiac gradients and guide further therapy and possible SHEELA/CVN as well on pending records obtained from [facility].and covid test. 2. Continue toprol. Digoxin x1. Hold off milrinone with current RVR. Will start once tachycardia is better. 3. Strict I & O. Missed voids overnight, discussed with RN. Will repeat BMP 4. Metoprolol for rate control. Hold coumadin. Hold entresto for now. 6. Monitor renal function. Lasix therapy. 7. Smoking cessation- pt has no plans on quitting Justicifation of Admission Dx: Justifications for Admission: Justification of Admission Dx: Yes CHF: Cardiac Arrhythmias BRISA ARVIZU MD 09/21/19 5207: CARDIO Progress Notes Plan Plan Pt. seen and examined. Agree with above FLOOR COVERER Note. Discussed with patient and at bedside Will plan for RHC and SHEELA/CVN tomorrow. Poor retirement prognosis. TORSTEN RODRIGUEZ APRN Sep 21, 2019 10:18 BRISA ARVIZU MD Sep 21, 2019 18:37
[2019-09-21 10:31] LABS: PROTHROMBIN TIME PATIENT 38.8 SEC (11.7-14.0)
[2019-09-21 11:00] VITALS: BP 126/72
--- NOTE | 2019-09-21 11:39 | CONS ---
DATE OF CONSULTATION: PULMONARY CONSULTATION ATTENDING PHYSICIAN: Dr. Kenny. REASON FOR CONSULTATION: Dyspnea. HISTORY OF PRESENT ILLNESS: The patient is a 74-year-old male who has been a smoker for 50 years. He came into the hospital complaining of dyspnea and orthopnea. The patient had no chest pain. He has a mild cough, no fever, no chills. No leg edema. His chest x-ray showed cardiomegaly with mild congestive heart failure. The patient is currently feeling better, currently on room air. He was suspected to have COVID-19. As a result, he is under isolation and test is pending. PAST MEDICAL HISTORY: History of atrial fibrillation, CAD, CHF, hypertension, valvular insufficiency, ischemic cardiomyopathy, history of COPD. PAST SURGICAL HISTORY: Pacemaker and CABG. SOCIAL HISTORY: Smoker for 50 years, has not completely quit. ALLERGIES: None. MEDICATIONS: Reviewed as listed in the MRAD. REVIEW OF SYSTEMS: Twelve-point system obtained. Pertinent positives discussed in my present illness, otherwise noncontributory. All systems that were negative were reviewed as well. FAMILY HISTORY: Noncontributory to lungs. PHYSICAL EXAMINATION: GENERAL: He is awake, following commands. VITAL SIGNS: Stable, afebrile. NECK: Supple. LUNGS: With diminished breath sounds. CARDIOVASCULAR: Regular rate. ABDOMEN: Soft. EXTREMITIES: With no pitting edema. LABORATORY DATA: Reviewed. White cell count 10.8, hemoglobin 12.2 and platelets are 165. BUN 40 and creatinine 2.1. Troponin less than 0.17. IMPRESSION: 1. Dyspnea, secondary to acute on chronic diastolic and systolic heart failure. Clinically better with Lasix. 2. Abnormal chest x-ray, consistent with congestive heart failure, cardiomegaly and mild interstitial markings. 3. Atrial fibrillation with rapid ventricular response, contributing to heart failure. 4. Low clinical suspicion for COVID-19. 5. Underlying chronic obstructive pulmonary disease. Fifty years of tobacco use. Unknown FEV1. 6. Ischemic cardiomyopathy with an EF of 15-20%. 7. Acute kidney injury on chronic kidney disease. 8. Coagulopathy with Coumadin. No evidence of any bleeding. RECOMMENDATIONS: 1. Follow Cardiology recommendations. 2. We will follow chest x-ray p.r.n. 3. COVID isolation until ruled out. 4. Continue p.r.n. diuresis. 5. Monitor renal function. 6. Follow up INR is improving. 7. Anticoagulation per Cardiology. 8. PFTs as an outpatient. 9. Smoking cessation counseling provided. 10. Discussed with RN. We will follow along with you. NILO VILLAFANA MD DR: ELLIOT/sherri JOB#: [id number] / [id number]
--- NOTE | 2019-09-21 13:05 | NUR ---
COVID NEGATIVE RESULT REPORTED TO THIS NURSE AND NOTICED IN COMPUTER AT THIS TIME, CHARGE NURSE, NURSING DOPE POURER, PATIENT AND Jules SIDHU (CARDIOLOGY) NOTIFIED. PATIENT TO TRANSFER TO THE SECOND FLOOR FOR IV HEART MEDICATION TO BE ORDERED BY CARDIOLOGY, PATIENT INFORMED.
--- NOTE | 2019-09-21 14:56 | PDOC ---
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 INR down to 3.9 possible SHEELA on . Continue toprol per cards. dig per cards follow i's and o's hold entresto per cards follow bmp dvt ppx: elevated inr History of Present Illness History of Present Illness breathing improved overall. Vitals Vitals Vital Signs Date Time Temp Pulse Resp B/P (MAP) Pulse Ox O2 Delivery O2 Flow Rate FiO2 09/21/19 12:47 96 126/72 09/21/19 11:00 97.0 20 93 Room Air 97.0 Physical Exam General: Alert, Oriented X3, Cooperative, No acute distress Heart: Other (AFIB) Lungs: Clear Abdomen: Soft Extremities: No cyanosis, Other (2+ pedal edema) Skin: No breakdown, No significant lesion Labs LABS Laboratory Tests Test 09/20/19 16:05 09/20/19 19:00 09/21/19 04:00 Troponin I Quantitative 0.030 ng/mL (0.000-0.055) < 0.017 ng/mL (0.000-0.055) White Blood Count 10.8 x10^3/uL (4.0-11.0) Red Blood Count 3.88 x10^6/uL (4.30-5.70) Hemoglobin 12.2 g/dL (13.0-17.5) Hematocrit 36.4 % (39.0-53.0) Mean Corpuscular Volume 94 fL (79-100) Mean Corpuscular Hemoglobin 31 pg (25-35) Mean Corpuscular Hemoglobin Concent 34 g/dL (31-37) Red Cell Distribution Width 15.6 % (11.5-14.5) Platelet Count 165 x10^3/uL (140-400) Neutrophils (%) (Auto) 86 % (31-73) Lymphocytes (%) (Auto) 9 % (24-48) Monocytes (%) (Auto) 5 % (0-9) Eosinophils (%) (Auto) 0 % (0-3) Basophils (%) (Auto) 0 % (0-3) Neutrophils # (Auto) 9.3 x10^3/uL (1.8-7.7) Lymphocytes # (Auto) 0.9 x10^3/uL (1.0-4.8) Monocytes # (Auto) 0.5 x10^3/uL (0.0-1.1) Eosinophils # (Auto) 0.0 x10^3/uL (0.0-0.7) Basophils # (Auto) 0.0 x10^3/uL (0.0-0.2) Segmented Neutrophils % 87 % (35-66) Band Neutrophils % 4 % (0-9) Lymphocytes % 5 % (24-48) Monocytes % 4 % (0-10) Platelet Estimate Adequate (ADEQUATE) Prothrombin Time 38.8 SEC (11.7-14.0) Prothromb Time International Ratio 3.9 (0.8-1.1) Sodium Level 136 mmol/L (136-145) Potassium Level 3.8 mmol/L (3.5-5.1) Chloride Level 98 mmol/L (98-107) Carbon Dioxide Level 23 mmol/L (21-32) Anion Gap 15 (6-14) Blood Urea Nitrogen 40 mg/dL (8-26) Creatinine 2.1 mg/dL (0.7-1.3) Estimated GFR (Cockcroft-Gault) 30.9 BUN/Creatinine Ratio 19 (6-20) Glucose Level 313 mg/dL (70-99) Calcium Level 8.4 mg/dL (8.5-10.1) Magnesium Level 1.9 mg/dL (1.8-2.4) Total Bilirubin 0.7 mg/dL (0.2-1.0) Aspartate Amino Transf (AST/SGOT) 20 U/L (15-37) Alanine Aminotransferase (ALT/SGPT) 30 U/L (16-63) Alkaline Phosphatase 106 U/L (46-116) Total Protein 6.6 g/dL (6.4-8.2) Albumin 3.0 g/dL (3.4-5.0) Albumin/Globulin Ratio 0.8 (1.0-1.7) Assessment and Plan Assessmemt and Plan Problems Medical Problems: (1) Congestive heart failure Status: Acute (2) COPD with exacerbation Status: Acute (3) Rapid atrial fibrillation Status: Acute Comment Review of Relevant I have reviewed the following items raul (where applicable) has been applied. Labs Laboratory Tests Test 09/20/19 11:05 09/20/19 12:56 09/20/19 16:05 09/20/19 19:00 White Blood Count 8.6 x10^3/uL (4.0-11.0) Red Blood Count 3.85 x10^6/uL (4.30-5.70) Hemoglobin 12.1 g/dL (13.0-17.5) Hematocrit 36.3 % (39.0-53.0) Mean Corpuscular Volume 95 fL (79-100) Mean Corpuscular Hemoglobin 32 pg (25-35) Mean Corpuscular Hemoglobin Concent 33 g/dL (31-37) Red Cell Distribution Width 16.0 % (11.5-14.5) Platelet Count 161 x10^3/uL (140-400) Neutrophils (%) (Auto) 74 % (31-73) Lymphocytes (%) (Auto) 18 % (24-48) Monocytes (%) (Auto) 7 % (0-9) Eosinophils (%) (Auto) 1 % (0-3) Basophils (%) (Auto) 1 % (0-3) Neutrophils # (Auto) 6.3 x10^3/uL (1.8-7.7) Lymphocytes # (Auto) 1.5 x10^3/uL (1.0-4.8) Monocytes # (Auto) 0.6 x10^3/uL (0.0-1.1) Eosinophils # (Auto) 0.1 x10^3/uL (0.0-0.7) Basophils # (Auto) 0.1 x10^3/uL (0.0-0.2) Prothrombin Time 49.5 SEC (11.7-14.0) Prothromb Time International Ratio 5.3 (0.8-1.1) Sodium Level 141 mmol/L (136-145) Potassium Level 3.3 mmol/L (3.5-5.1) Chloride Level 101 mmol/L (98-107) Carbon Dioxide Level 29 mmol/L (21-32) Anion Gap 11 (6-14) Blood Urea Nitrogen 29 mg/dL (8-26) Creatinine 1.7 mg/dL (0.7-1.3) Estimated GFR (Cockcroft-Gault) 39.5 BUN/Creatinine Ratio 17 (6-20) Glucose Level 235 mg/dL (70-99) Calcium Level 8.3 mg/dL (8.5-10.1) Magnesium Level 1.0 mg/dL (1.8-2.4) Total Bilirubin 0.8 mg/dL (0.2-1.0) Aspartate Amino Transf (AST/SGOT) 27 U/L (15-37) Alanine Aminotransferase (ALT/SGPT) 32 U/L (16-63) Alkaline Phosphatase 105 U/L (46-116) Troponin I Quantitative 0.023 ng/mL (0.000-0.055) 0.030 ng/mL (0.000-0.055) < 0.017 ng/mL (0.000-0.055) OQ-Okv-F-Type Natriuretic Peptide > 03912 pg/mL (0-449) Total Protein 6.6 g/dL (6.4-8.2) Albumin 3.1 g/dL (3.4-5.0) Albumin/Globulin Ratio 0.9 (1.0-1.7) Thyroid Stimulating Hormone (TSH) 1.757 uIU/mL (0.358-3.74) Coronavirus (COVID-19)(PCR) Not detected (NOT DETECT.) Test 09/21/19 04:00 White Blood Count 10.8 x10^3/uL (4.0-11.0) Red Blood Count 3.88 x10^6/uL (4.30-5.70) Hemoglobin 12.2 g/dL (13.0-17.5) Hematocrit 36.4 % (39.0-53.0) Mean Corpuscular Volume 94 fL (79-100) Mean Corpuscular Hemoglobin 31 pg (25-35) Mean Corpuscular Hemoglobin Concent 34 g/dL (31-37) Red Cell Distribution Width 15.6 % (11.5-14.5) Platelet Count 165 x10^3/uL (140-400) Neutrophils (%) (Auto) 86 % (31-73) Lymphocytes (%) (Auto) 9 % (24-48) Monocytes (%) (Auto) 5 % (0-9) Eosinophils (%) (Auto) 0 % (0-3) Basophils (%) (Auto) 0 % (0-3) Neutrophils # (Auto) 9.3 x10^3/uL (1.8-7.7) Lymphocytes # (Auto) 0.9 x10^3/uL (1.0-4.8) Monocytes # (Auto) 0.5 x10^3/uL (0.0-1.1) Eosinophils # (Auto) 0.0 x10^3/uL (0.0-0.7) Basophils # (Auto) 0.0 x10^3/uL (0.0-0.2) Segmented Neutrophils % 87 % (35-66) Band Neutrophils % 4 % (0-9) Lymphocytes % 5 % (24-48) Monocytes % 4 % (0-10) Platelet Estimate Adequate (ADEQUATE) Prothrombin Time 38.8 SEC (11.7-14.0) Prothromb Time International Ratio 3.9 (0.8-1.1) Sodium Level 136 mmol/L (136-145) Potassium Level 3.8 mmol/L (3.5-5.1) Chloride Level 98 mmol/L (98-107) Carbon Dioxide Level 23 mmol/L (21-32) Anion Gap 15 (6-14) Blood Urea Nitrogen 40 mg/dL (8-26) Creatinine 2.1 mg/dL (0.7-1.3) Estimated GFR (Cockcroft-Gault) 30.9 BUN/Creatinine Ratio 19 (6-20) Glucose Level 313 mg/dL (70-99) Calcium Level 8.4 mg/dL (8.5-10.1) Magnesium Level 1.9 mg/dL (1.8-2.4) Total Bilirubin 0.7 mg/dL (0.2-1.0) Aspartate Amino Transf (AST/SGOT) 20 U/L (15-37) Alanine Aminotransferase (ALT/SGPT) 30 U/L (16-63) Alkaline Phosphatase 106 U/L (46-116) Total Protein 6.6 g/dL (6.4-8.2) Albumin 3.0 g/dL (3.4-5.0) Albumin/Globulin Ratio 0.8 (1.0-1.7) Laboratory Tests Test 09/20/19 16:05 09/20/19 19:00 09/21/19 04:00 Troponin I Quantitative 0.030 ng/mL (0.000-0.055) < 0.017 ng/mL (0.000-0.055) White Blood Count 10.8 x10^3/uL (4.0-11.0) Red Blood Count 3.88 x10^6/uL (4.30-5.70) Hemoglobin 12.2 g/dL (13.0-17.5) Hematocrit 36.4 % (39.0-53.0) Mean Corpuscular Volume 94 fL (79-100) Mean Corpuscular Hemoglobin 31 pg (25-35) Mean Corpuscular Hemoglobin Concent 34 g/dL (31-37) Red Cell Distribution Width 15.6 % (11.5-14.5) Platelet Count 165 x10^3/uL (140-400) Neutrophils (%) (Auto) 86 % (31-73) Lymphocytes (%) (Auto) 9 % (24-48) Monocytes (%) (Auto) 5 % (0-9) Eosinophils (%) (Auto) 0 % (0-3) Basophils (%) (Auto) 0 % (0-3) Neutrophils # (Auto) 9.3 x10^3/uL (1.8-7.7) Lymphocytes # (Auto) 0.9 x10^3/uL (1.0-4.8) Monocytes # (Auto) 0.5 x10^3/uL (0.0-1.1) Eosinophils # (Auto) 0.0 x10^3/uL (0.0-0.7) Basophils # (Auto) 0.0 x10^3/uL (0.0-0.2) Segmented Neutrophils % 87 % (35-66) Band Neutrophils % 4 % (0-9) Lymphocytes % 5 % (24-48) Monocytes % 4 % (0-10) Platelet Estimate Adequate (ADEQUATE) Prothrombin Time 38.8 SEC (11.7-14.0) Prothromb Time International Ratio 3.9 (0.8-1.1) Sodium Level 136 mmol/L (136-145) Potassium Level 3.8 mmol/L (3.5-5.1) Chloride Level 98 mmol/L (98-107) Carbon Dioxide Level 23 mmol/L (21-32) Anion Gap 15 (6-14) Blood Urea Nitrogen 40 mg/dL (8-26) Creatinine 2.1 mg/dL (0.7-1.3) Estimated GFR (Cockcroft-Gault) 30.9 BUN/Creatinine Ratio 19 (6-20) Glucose Level 313 mg/dL (70-99) Calcium Level 8.4 mg/dL (8.5-10.1) Magnesium Level 1.9 mg/dL (1.8-2.4) Total Bilirubin 0.7 mg/dL (0.2-1.0) Aspartate Amino Transf (AST/SGOT) 20 U/L (15-37) Alanine Aminotransferase (ALT/SGPT) 30 U/L (16-63) Alkaline Phosphatase 106 U/L (46-116) Total Protein 6.6 g/dL (6.4-8.2) Albumin 3.0 g/dL (3.4-5.0) Albumin/Globulin Ratio 0.8 (1.0-1.7) Medications Current Medications Albuterol/ Ipratropium (Duoneb) 3 ml 1X ONCE NEB Last administered on 09/20/19at 11:29; Start 09/20/19 at 11:15; Stop 09/20/19 at 11:16; Status DC Methylprednisolone Sodium Succinate (SOLU-Medrol 125MG VIAL) 125 mg 1X ONCE IV Last administered on 09/20/19at 11:28; Start 09/20/19 at 11:15; Stop 09/20/19 at 11:16; Status DC Diltiazem HCl (Cardizem Iv Push) 20 mg 1X ONCE IVP Last administered on 09/20/19at 11:30; Start 09/20/19 at 11:15; Stop 09/20/19 at 11:16; Status DC Furosemide (Lasix) 80 mg 1X ONCE IVP Last administered on 09/20/19at 13:46; Start 09/20/19 at 13:00; Stop 09/20/19 at 13:01; Status DC Ondansetron HCl (Zofran) 4 mg PRN Q8HRS PRN IV NAUSEA/VOMITING; Start 09/20/19 at 13:15; Stop 09/21/19 at 13:14; Status DC Acetaminophen (Tylenol) 650 mg PRN Q4HRS PRN PO FEVER > 100.3'F; Start 09/20/19 at 13:15; Stop 09/21/19 at 12:11; Status DC Albuterol/ Ipratropium (Duoneb) 3 ml RTQID NEB ; Start 09/20/19 at 16:00; Stop 09/21/19 at 15:59 Magnesium Sulfate 100 ml @ 25 mls/hr 1X ONCE IV Last administered on 09/19at 14:46; Start 09/20/19 at 14:15; Stop 09/20/19 at 18:14; Status DC Potassium Chloride (Klor-Con) 40 meq 1X ONCE PO Last administered on 09/20/19at 14:45; Start 09/20/19 at 14:15; Stop 09/20/19 at 14:16; Status DC Acetaminophen (Tylenol) 650 mg PRN Q4HRS PRN PO TEMP OVER 100.4F OR MILD PAIN; Start 09/20/19 at 15:15 Furosemide (Lasix) 40 mg [id number] IVP ; Start 09/21/19 at 09:00 Metoprolol Tartrate (Lopressor) 25 mg Q6HRS PO Last administered on 09/20/19at 16:44; Start 09/20/19 at 15:45; Stop 09/20/19 at 23:59; Status DC Allopurinol (Zyloprim) 100 mg DAILY PO Last administered on 09/21/19at 10:00; Start 09/21/19 at 09:00 Aspirin (Ecotrin) 81 mg [id number] PO Last administered on 09/21/19at 10:01; Start 09/21/19 at 08:00 Isosorbide Mononitrate (Imdur) 30 mg DAILY PO Last administered on 09/21/19at 10:00; Start 09/21/19 at 09:00 Metoprolol Succinate (Toprol Xl) 150 mg DAILY PO Last administered on 09/21/19at 10:01; Start 09/21/19 at 09:00 Sacubitril/ Valsartan (Entresto 49 Mg-51 Mg) 1 tab BID PO Last administered on 09/20/19at 22:21; Start 09/20/19 at 21:00; Stop 09/21/19 at 07:37; Status DC Atorvastatin Calcium (Lipitor) 80 mg QHS PO Last administered on 09/20/19at 22:21; Start 09/20/19 at 21:00 Digoxin (Lanoxin) 500 mcg 1X ONCE IV Last administered on 09/21/19at 12:47; Start 09/21/19 at 10:15; Stop 09/21/19 at 10:16; Status DC Active Scripts Active Furosemide 40 Mg Tablet 40 Mg PO DAILY Aspirin Ec (Aspirin) 81 Mg Tablet. 81 Mg PO [id number] Reported Ventolin Hfa Inhaler (Albuterol Sulfate) 18 Gm Hfa.aer.ad 2 Puff INH QID Entresto 24 mg-26 mg Tablet (Sacubitril/Valsartan) 1 Each Tablet 1 Each PO BID Warfarin Sodium 10 Mg Tablet 10 Mg PO UD Warfarin Sodium 5 Mg Tablet 5 Mg PO MONTU TAKE ON THURSDAY AND THURSDAY Atorvastatin Calcium 80 Mg Tablet 80 Mg PO HS Isosorbide Mononitrate Er (Isosorbide Mononitrate) 30 Mg Tab.er.24h 1 Tab PO DAILY Metformin Hcl 500 Mg Tablet 500 Mg PO BIDWMEALS Hold for 48 hours, next dose Tuesday 11/21 evening dose Coreg (Carvedilol) 25 Mg Tablet 25 Mg PO BIDWMEALS Vitals/I & O Vital Sign - Last 24 Hours 09/20/19 09/20/19 09/20/19 09/20/19 16:30 16:35 16:44 19:00 Temp 97.8 97.3 97.8 97.3 Pulse 96 95 91 Resp 18 20 B/P (MAP) 149/76 (100) 144/76 129/73 (91) Pulse Ox 96 95 O2 Delivery Room Air Room Air 09/20/19 09/20/19 09/20/19 09/20/19 19:38 20:00 22:21 23:00 Temp 96.7 96.7 Pulse 95 96 Resp 20 B/P (MAP) 144/76 141/89 (106) Pulse Ox 97 94 O2 Delivery Room Air Room Air 09/21/19 09/21/19 09/21/19 09/21/19 03:00 07:00 08:00 10:00 Temp 96.0 97.0 96.0 97.0 Pulse 112 103 103 Resp 18 19 B/P (MAP) 133/82 (99) 136/75 (95) 136/75 Pulse Ox 96 92 O2 Delivery Room Air Room Air 09/21/19 09/21/19 09/21/19 10:01 11:00 12:47 Temp 97.0 97.0 Pulse 103 96 96 Resp 20 B/P (MAP) 136/75 126/72 (90) 126/72 Pulse Ox 93 O2 Delivery Room Air Intake and Output 09/20/19 09/20/19 09/21/19 15:00 23:00 07:00 Intake Total 780 ml Output Total 250 ml Balance -250 ml 780 ml FLAKITO YEE MD Sep 21, 2019 14:56
[2019-09-21 15:00] VITALS: BP 143/66
[2019-09-21 15:24] LABS: CREATININE 2.1 mg/dL (0.7-1.3); GFR 30.9; POTASSIUM 4.4 mmol/L (3.5-5.1)
[2019-09-21] MEDS: MILRINONE 20MG/100ML PREMIX 100 ML IV PRN (16:43)
[2019-09-21] MEDS ORDERED: DEXTROSE 50% 25 GM / 50ML DISP.SYRIN. IV PRN (17:15)
[2019-09-21] MEDS: INSULIN LISPRO 300 UNITS/3 ML VIAL. SQ SCH (18:02)
[2019-09-21 19:48] VITALS: BP 122/67
[2019-09-21] MEDS: ATORVASTATIN CALCIUM 40 MG TABLET. PO SCH (22:00)
[2019-09-21] MEDS: INSULIN GLARGINE SYRINGE. SQ SCH (22:03)
[2019-09-21 22:25] VITALS: BP 117/64
[2019-09-21] MEDS ORDERED: ALBUTEROL SULFATE 2.5 MG/3 ML NEBU. NEB PRN (22:45)
[2019-09-22] VITALS (18 sets, daily range): BP systolic 109–163; BP diastolic 53–87
[2019-09-22 05:14] LABS: BASO # 0.1 x10^3/uL (0.0-0.2); BASO % 1 % (0-3); EOS # 0.1 x10^3/uL (0.0-0.7); EOS % 1 % (0-3); HEMATOCRIT 33.4 % (39.0-53.0); HEMOGLOBIN 11.2 g/dL (13.0-17.5); LYMPH # 2.4 x10^3/uL (1.0-4.8); LYMPH % 22 % (24-48); MEAN CORPUSCULAR HEMOGLOBIN 31 pg (25-35); MEAN CORPUSCULAR HGB CONC 34 g/dL (31-37); MEAN CORPUSCULAR VOLUME 93 fL (79-100); MONO # 0.8 x10^3/uL (0.0-1.1); MONO % 7 % (0-9); NEUT # 7.7 x10^3/uL (1.8-7.7); NEUT % 69 % (31-73); PLATELET COUNT 171 x10^3/uL (140-400); RED BLOOD COUNT 3.59 x10^6/uL (4.30-5.70); WHITE BLOOD COUNT 11.1 x10^3/uL (4.0-11.0)
[2019-09-22 05:33] LABS: ALBUMIN 2.6 g/dL (3.4-5.0); CREATININE 1.8 mg/dL (0.7-1.3); DIRECT BILIRUBIN 0.2 mg/dL (0.0-0.2); POTASSIUM 3.8 mmol/L (3.5-5.1); TOTAL BILIRUBIN 0.4 mg/dL (0.2-1.0); TOTAL PROTEIN 5.6 g/dL (6.4-8.2)
[2019-09-22] MEDS: INSULIN LISPRO 300 UNITS/3 ML VIAL. SQ SCH ×3 (08:00→17:53)
[2019-09-22] MEDS ORDERED: INSULIN LISPRO 300 UNITS/3 ML VIAL. SQ SCH (08:00)
[2019-09-22] MEDS ORDERED: LIDOCAINE 2% TOPICAL JELLY 30GM TUBE. TP ONE (08:30)
[2019-09-22] MEDS ORDERED: LIDOCAINE 2% VISCOUS 15 ML SOLUTION. SWSW ONE (08:30)
[2019-09-22] MEDS ORDERED: BENZOCAINE ONE 20% MUCOSAL SPRAY. MM (08:30)
[2019-09-22] MEDS: ASPIRIN ENTERIC COATED 81 MG TABLET.DR. PO SCH (08:54)
[2019-09-22] MEDS: METOPROLOL SUCC 24HR ER 50 MG TAB.ER.24H. PO SCH (08:54)
[2019-09-22] MEDS: ISOSORBIDE MONONITRATE ER 30 MG TAB.ER.24H PO SCH (08:55)
[2019-09-22] MEDS: FUROSEMIDE 40 MG/4 ML VIAL. IVP SCH ×2 (08:55→15:38)
--- NOTE | 2019-09-22 09:15 | PDOC ---
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 INR down to 3.9 possible SHEELA on . Continue toprol per cards. dig per cards follow i's and o's hold entresto per cards follow bmp dvt ppx: elevated inr History of Present Illness History of Present Illness Still wheezing a bit, but breathing improved overall. Rapid atrial fibrillation, COVID negative, transferred to [facility], plans for SHEELA cardioversion today, hold off on RHC due to blood thinners. Vitals Vitals Vital Signs Date Time Temp Pulse Resp B/P (MAP) Pulse Ox O2 Delivery O2 Flow Rate FiO2 09/22/19 08:55 91 133/73 09/22/19 07:00 97.6 18 91 Room Air 97.6 Physical Exam General: Alert, Oriented X3, Cooperative, No acute distress Heart: Other (AFIB) Lungs: Clear Abdomen: Soft Extremities: No cyanosis, Other (2+ pedal edema) Skin: No breakdown, No significant lesion Labs LABS Laboratory Tests Test 09/21/19 15:00 09/21/19 17:06 09/21/19 21:34 09/22/19 04:54 Sodium Level 138 mmol/L (136-145) 140 mmol/L (136-145) Potassium Level 4.4 mmol/L (3.5-5.1) 3.8 mmol/L (3.5-5.1) Chloride Level 100 mmol/L (98-107) 103 mmol/L (98-107) Carbon Dioxide Level 28 mmol/L (21-32) 29 mmol/L (21-32) Anion Gap 10 (6-14) 8 (6-14) Blood Urea Nitrogen 44 mg/dL (8-26) 46 mg/dL (8-26) Creatinine 2.1 mg/dL (0.7-1.3) 1.8 mg/dL (0.7-1.3) Estimated GFR (Cockcroft-Gault) 30.9 37.0 Glucose Level 374 mg/dL (70-99) 153 mg/dL (70-99) Calcium Level 8.0 mg/dL (8.5-10.1) 8.0 mg/dL (8.5-10.1) Glucose (Fingerstick) 342 mg/dL (70-99) 223 mg/dL (70-99) White Blood Count 11.1 x10^3/uL (4.0-11.0) Red Blood Count 3.59 x10^6/uL (4.30-5.70) Hemoglobin 11.2 g/dL (13.0-17.5) Hematocrit 33.4 % (39.0-53.0) Mean Corpuscular Volume 93 fL (79-100) Mean Corpuscular Hemoglobin 31 pg (25-35) Mean Corpuscular Hemoglobin Concent 34 g/dL (31-37) Red Cell Distribution Width 16.0 % (11.5-14.5) Platelet Count 171 x10^3/uL (140-400) Neutrophils (%) (Auto) 69 % (31-73) Lymphocytes (%) (Auto) 22 % (24-48) Monocytes (%) (Auto) 7 % (0-9) Eosinophils (%) (Auto) 1 % (0-3) Basophils (%) (Auto) 1 % (0-3) Neutrophils # (Auto) 7.7 x10^3/uL (1.8-7.7) Lymphocytes # (Auto) 2.4 x10^3/uL (1.0-4.8) Monocytes # (Auto) 0.8 x10^3/uL (0.0-1.1) Eosinophils # (Auto) 0.1 x10^3/uL (0.0-0.7) Basophils # (Auto) 0.1 x10^3/uL (0.0-0.2) Prothrombin Time 33.0 SEC (11.7-14.0) Prothromb Time International Ratio 3.2 (0.8-1.1) Total Bilirubin 0.4 mg/dL (0.2-1.0) Direct Bilirubin 0.2 mg/dL (0.0-0.2) Aspartate Amino Transf (AST/SGOT) 15 U/L (15-37) Alanine Aminotransferase (ALT/SGPT) 26 U/L (16-63) Alkaline Phosphatase 85 U/L (46-116) Total Protein 5.6 g/dL (6.4-8.2) Albumin 2.6 g/dL (3.4-5.0) Test 09/22/19 08:12 Glucose (Fingerstick) 156 mg/dL (70-99) Assessment and Plan Assessmemt and Plan Problems Medical Problems: (1) Congestive heart failure Status: Acute (2) COPD with exacerbation Status: Acute (3) Rapid atrial fibrillation Status: Acute Comment Review of Relevant I have reviewed the following items raul (where applicable) has been applied. Labs Laboratory Tests Test 09/20/19 11:05 09/20/19 12:56 09/20/19 16:05 09/20/19 19:00 White Blood Count 8.6 x10^3/uL (4.0-11.0) Red Blood Count 3.85 x10^6/uL (4.30-5.70) Hemoglobin 12.1 g/dL (13.0-17.5) Hematocrit 36.3 % (39.0-53.0) Mean Corpuscular Volume 95 fL (79-100) Mean Corpuscular Hemoglobin 32 pg (25-35) Mean Corpuscular Hemoglobin Concent 33 g/dL (31-37) Red Cell Distribution Width 16.0 % (11.5-14.5) Platelet Count 161 x10^3/uL (140-400) Neutrophils (%) (Auto) 74 % (31-73) Lymphocytes (%) (Auto) 18 % (24-48) Monocytes (%) (Auto) 7 % (0-9) Eosinophils (%) (Auto) 1 % (0-3) Basophils (%) (Auto) 1 % (0-3) Neutrophils # (Auto) 6.3 x10^3/uL (1.8-7.7) Lymphocytes # (Auto) 1.5 x10^3/uL (1.0-4.8) Monocytes # (Auto) 0.6 x10^3/uL (0.0-1.1) Eosinophils # (Auto) 0.1 x10^3/uL (0.0-0.7) Basophils # (Auto) 0.1 x10^3/uL (0.0-0.2) Prothrombin Time 49.5 SEC (11.7-14.0) Prothromb Time International Ratio 5.3 (0.8-1.1) Sodium Level 141 mmol/L (136-145) Potassium Level 3.3 mmol/L (3.5-5.1) Chloride Level 101 mmol/L (98-107) Carbon Dioxide Level 29 mmol/L (21-32) Anion Gap 11 (6-14) Blood Urea Nitrogen 29 mg/dL (8-26) Creatinine 1.7 mg/dL (0.7-1.3) Estimated GFR (Cockcroft-Gault) 39.5 BUN/Creatinine Ratio 17 (6-20) Glucose Level 235 mg/dL (70-99) Calcium Level 8.3 mg/dL (8.5-10.1) Magnesium Level 1.0 mg/dL (1.8-2.4) Total Bilirubin 0.8 mg/dL (0.2-1.0) Aspartate Amino Transf (AST/SGOT) 27 U/L (15-37) Alanine Aminotransferase (ALT/SGPT) 32 U/L (16-63) Alkaline Phosphatase 105 U/L (46-116) Troponin I Quantitative 0.023 ng/mL (0.000-0.055) 0.030 ng/mL (0.000-0.055) < 0.017 ng/mL (0.000-0.055) OI-Yer-B-Type Natriuretic Peptide > 06364 pg/mL (0-449) Total Protein 6.6 g/dL (6.4-8.2) Albumin 3.1 g/dL (3.4-5.0) Albumin/Globulin Ratio 0.9 (1.0-1.7) Thyroid Stimulating Hormone (TSH) 1.757 uIU/mL (0.358-3.74) Coronavirus (COVID-19)(PCR) Not detected (NOT DETECT.) Test 09/21/19 04:00 09/21/19 15:00 09/21/19 17:06 09/21/19 21:34 White Blood Count 10.8 x10^3/uL (4.0-11.0) Red Blood Count 3.88 x10^6/uL (4.30-5.70) Hemoglobin 12.2 g/dL (13.0-17.5) Hematocrit 36.4 % (39.0-53.0) Mean Corpuscular Volume 94 fL (79-100) Mean Corpuscular Hemoglobin 31 pg (25-35) Mean Corpuscular Hemoglobin Concent 34 g/dL (31-37) Red Cell Distribution Width 15.6 % (11.5-14.5) Platelet Count 165 x10^3/uL (140-400) Neutrophils (%) (Auto) 86 % (31-73) Lymphocytes (%) (Auto) 9 % (24-48) Monocytes (%) (Auto) 5 % (0-9) Eosinophils (%) (Auto) 0 % (0-3) Basophils (%) (Auto) 0 % (0-3) Neutrophils # (Auto) 9.3 x10^3/uL (1.8-7.7) Lymphocytes # (Auto) 0.9 x10^3/uL (1.0-4.8) Monocytes # (Auto) 0.5 x10^3/uL (0.0-1.1) Eosinophils # (Auto) 0.0 x10^3/uL (0.0-0.7) Basophils # (Auto) 0.0 x10^3/uL (0.0-0.2) Segmented Neutrophils % 87 % (35-66) Band Neutrophils % 4 % (0-9) Lymphocytes % 5 % (24-48) Monocytes % 4 % (0-10) Platelet Estimate Adequate (ADEQUATE) Prothrombin Time 38.8 SEC (11.7-14.0) Prothromb Time International Ratio 3.9 (0.8-1.1) Sodium Level 136 mmol/L (136-145) 138 mmol/L (136-145) Potassium Level 3.8 mmol/L (3.5-5.1) 4.4 mmol/L (3.5-5.1) Chloride Level 98 mmol/L (98-107) 100 mmol/L (98-107) Carbon Dioxide Level 23 mmol/L (21-32) 28 mmol/L (21-32) Anion Gap 15 (6-14) 10 (6-14) Blood Urea Nitrogen 40 mg/dL (8-26) 44 mg/dL (8-26) Creatinine 2.1 mg/dL (0.7-1.3) 2.1 mg/dL (0.7-1.3) Estimated GFR (Cockcroft-Gault) 30.9 30.9 BUN/Creatinine Ratio 19 (6-20) Glucose Level 313 mg/dL (70-99) 374 mg/dL (70-99) Calcium Level 8.4 mg/dL (8.5-10.1) 8.0 mg/dL (8.5-10.1) Magnesium Level 1.9 mg/dL (1.8-2.4) Total Bilirubin 0.7 mg/dL (0.2-1.0) Aspartate Amino Transf (AST/SGOT) 20 U/L (15-37) Alanine Aminotransferase (ALT/SGPT) 30 U/L (16-63) Alkaline Phosphatase 106 U/L (46-116) Total Protein 6.6 g/dL (6.4-8.2) Albumin 3.0 g/dL (3.4-5.0) Albumin/Globulin Ratio 0.8 (1.0-1.7) Glucose (Fingerstick) 342 mg/dL (70-99) 223 mg/dL (70-99) Test 09/22/19 04:54 09/22/19 08:12 White Blood Count 11.1 x10^3/uL (4.0-11.0) Red Blood Count 3.59 x10^6/uL (4.30-5.70) Hemoglobin 11.2 g/dL (13.0-17.5) Hematocrit 33.4 % (39.0-53.0) Mean Corpuscular Volume 93 fL (79-100) Mean Corpuscular Hemoglobin 31 pg (25-35) Mean Corpuscular Hemoglobin Concent 34 g/dL (31-37) Red Cell Distribution Width 16.0 % (11.5-14.5) Platelet Count 171 x10^3/uL (140-400) Neutrophils (%) (Auto) 69 % (31-73) Lymphocytes (%) (Auto) 22 % (24-48) Monocytes (%) (Auto) 7 % (0-9) Eosinophils (%) (Auto) 1 % (0-3) Basophils (%) (Auto) 1 % (0-3) Neutrophils # (Auto) 7.7 x10^3/uL (1.8-7.7) Lymphocytes # (Auto) 2.4 x10^3/uL (1.0-4.8) Monocytes # (Auto) 0.8 x10^3/uL (0.0-1.1) Eosinophils # (Auto) 0.1 x10^3/uL (0.0-0.7) Basophils # (Auto) 0.1 x10^3/uL (0.0-0.2) Prothrombin Time 33.0 SEC (11.7-14.0) Prothromb Time International Ratio 3.2 (0.8-1.1) Sodium Level 140 mmol/L (136-145) Potassium Level 3.8 mmol/L (3.5-5.1) Chloride Level 103 mmol/L (98-107) Carbon Dioxide Level 29 mmol/L (21-32) Anion Gap 8 (6-14) Blood Urea Nitrogen 46 mg/dL (8-26) Creatinine 1.8 mg/dL (0.7-1.3) Estimated GFR (Cockcroft-Gault) 37.0 Glucose Level 153 mg/dL (70-99) Calcium Level 8.0 mg/dL (8.5-10.1) Total Bilirubin 0.4 mg/dL (0.2-1.0) Direct Bilirubin 0.2 mg/dL (0.0-0.2) Aspartate Amino Transf (AST/SGOT) 15 U/L (15-37) Alanine Aminotransferase (ALT/SGPT) 26 U/L (16-63) Alkaline Phosphatase 85 U/L (46-116) Total Protein 5.6 g/dL (6.4-8.2) Albumin 2.6 g/dL (3.4-5.0) Glucose (Fingerstick) 156 mg/dL (70-99) Laboratory Tests Test 09/21/19 15:00 09/21/19 17:06 09/21/19 21:34 09/22/19 04:54 Sodium Level 138 mmol/L (136-145) 140 mmol/L (136-145) Potassium Level 4.4 mmol/L (3.5-5.1) 3.8 mmol/L (3.5-5.1) Chloride Level 100 mmol/L (98-107) 103 mmol/L (98-107) Carbon Dioxide Level 28 mmol/L (21-32) 29 mmol/L (21-32) Anion Gap 10 (6-14) 8 (6-14) Blood Urea Nitrogen 44 mg/dL (8-26) 46 mg/dL (8-26) Creatinine 2.1 mg/dL (0.7-1.3) 1.8 mg/dL (0.7-1.3) Estimated GFR (Cockcroft-Gault) 30.9 37.0 Glucose Level 374 mg/dL (70-99) 153 mg/dL (70-99) Calcium Level 8.0 mg/dL (8.5-10.1) 8.0 mg/dL (8.5-10.1) Glucose (Fingerstick) 342 mg/dL (70-99) 223 mg/dL (70-99) White Blood Count 11.1 x10^3/uL (4.0-11.0) Red Blood Count 3.59 x10^6/uL (4.30-5.70) Hemoglobin 11.2 g/dL (13.0-17.5) Hematocrit 33.4 % (39.0-53.0) Mean Corpuscular Volume 93 fL (79-100) Mean Corpuscular Hemoglobin 31 pg (25-35) Mean Corpuscular Hemoglobin Concent 34 g/dL (31-37) Red Cell Distribution Width 16.0 % (11.5-14.5) Platelet Count 171 x10^3/uL (140-400) Neutrophils (%) (Auto) 69 % (31-73) Lymphocytes (%) (Auto) 22 % (24-48) Monocytes (%) (Auto) 7 % (0-9) Eosinophils (%) (Auto) 1 % (0-3) Basophils (%) (Auto) 1 % (0-3) Neutrophils # (Auto) 7.7 x10^3/uL (1.8-7.7) Lymphocytes # (Auto) 2.4 x10^3/uL (1.0-4.8) Monocytes # (Auto) 0.8 x10^3/uL (0.0-1.1) Eosinophils # (Auto) 0.1 x10^3/uL (0.0-0.7) Basophils # (Auto) 0.1 x10^3/uL (0.0-0.2) Prothrombin Time 33.0 SEC (11.7-14.0) Prothromb Time International Ratio 3.2 (0.8-1.1) Total Bilirubin 0.4 mg/dL (0.2-1.0) Direct Bilirubin 0.2 mg/dL (0.0-0.2) Aspartate Amino Transf (AST/SGOT) 15 U/L (15-37) Alanine Aminotransferase (ALT/SGPT) 26 U/L (16-63) Alkaline Phosphatase 85 U/L (46-116) Total Protein 5.6 g/dL (6.4-8.2) Albumin 2.6 g/dL (3.4-5.0) Test 09/22/19 08:12 Glucose (Fingerstick) 156 mg/dL (70-99) Medications Current Medications Albuterol/ Ipratropium (Duoneb) 3 ml 1X ONCE NEB Last administered on 09/20/19at 11:29; Start 09/20/19 at 11:15; Stop 09/20/19 at 11:16; Status DC Methylprednisolone Sodium Succinate (SOLU-Medrol 125MG VIAL) 125 mg 1X ONCE IV Last administered on 09/20/19at 11:28; Start 09/20/19 at 11:15; Stop 09/20/19 at 11:16; Status DC Diltiazem HCl (Cardizem Iv Push) 20 mg 1X ONCE IVP Last administered on 09/20/19at 11:30; Start 09/20/19 at 11:15; Stop 09/20/19 at 11:16; Status DC Furosemide (Lasix) 80 mg 1X ONCE IVP Last administered on 09/20/19at 13:46; Start 09/20/19 at 13:00; Stop 09/20/19 at 13:01; Status DC Ondansetron HCl (Zofran) 4 mg PRN Q8HRS PRN IV NAUSEA/VOMITING; Start 09/20/19 at 13:15; Stop 09/21/19 at 13:14; Status DC Acetaminophen (Tylenol) 650 mg PRN Q4HRS PRN PO FEVER > 100.3'F; Start 09/20/19 at 13:15; Stop 09/21/19 at 12:11; Status DC Albuterol/ Ipratropium (Duoneb) 3 ml RTQID NEB ; Start 09/20/19 at 16:00; Stop 09/21/19 at 15:59; Status DC Magnesium Sulfate 100 ml @ 25 mls/hr 1X ONCE IV Last administered on 09/20/19at 14:46; Start 09/20/19 at 14:15; Stop 09/20/19 at 18:14; Status DC Potassium Chloride (Klor-Con) 40 meq 1X ONCE PO Last administered on 09/20/19at 14:45; Start 09/20/19 at 14:15; Stop 09/20/19 at 14:16; Status DC Acetaminophen (Tylenol) 650 mg PRN Q4HRS PRN PO TEMP OVER 100.4F OR MILD PAIN; Start 09/20/19 at 15:15 Furosemide (Lasix) 40 mg [id number] IVP Last administered on 09/22/19at 08:55; Start 09/21/19 at 09:00 Metoprolol Tartrate (Lopressor) 25 mg Q6HRS PO Last administered on 09/20/19at 16:44; Start 09/20/19 at 15:45; Stop 09/20/19 at 23:59; Status DC Allopurinol (Zyloprim) 100 mg DAILY PO Last administered on 09/21/19at 10:00; Start 09/21/19 at 09:00 Aspirin (Ecotrin) 81 mg [id number] PO Last administered on 09/22/19at 08:54; Start 09/21/19 at 08:00 Isosorbide Mononitrate (Imdur) 30 mg DAILY PO Last administered on 09/22/19at 08:55; Start 09/21/19 at 09:00 Metoprolol Succinate (Toprol Xl) 150 mg DAILY PO Last administered on 09/22/19at 08:54; Start 09/21/19 at 09:00 Sacubitril/ Valsartan (Entresto 49 Mg-51 Mg) 1 tab BID PO Last administered on 09/20/19at 22:21; Start 09/20/19 at 21:00; Stop 09/21/19 at 07:37; Status DC Atorvastatin Calcium (Lipitor) 80 mg QHS PO Last administered on 09/21/19at 22:00; Start 09/20/19 at 21:00 Digoxin (Lanoxin) 500 mcg 1X ONCE IV Last administered on 09/21/19at 12:47; Start 09/21/19 at 10:15; Stop 09/21/19 at 10:16; Status DC Milrinone Lactate/ Dextrose 100 ml @ 3.034 mls/ hr CONT PRN IV SEE I/O RECORD Last administered on 09/21/19at 16:43; Start 09/21/19 at 15:45 Insulin Glargine (Lantus Syringe) 10 unit QHS SQ Last administered on 09/21/19at 22:03; Start 09/21/19 at 21:00 Insulin Human Lispro (HumaLOG) 0-7 UNITS TIDWMEALS SQ ; Start 09/22/19 at 08:00; Stop 09/21/19 at 17:38; Status DC Dextrose (Dextrose 50%-Water Syringe) 12.5 gm PRN Q15MIN PRN IV SEE COMMENTS; Start 09/21/19 at 17:15 Insulin Human Lispro (HumaLOG) 0-7 UNITS TIDWMEALS SQ Last administered on 09/21/19at 18:02; Start 09/21/19 at 17:45 Albuterol Sulfate (Ventolin Neb Soln) 2.5 mg PRN Q4HRS PRN NEB WHEEZING; Start 09/21/19 at 22:45 Lidocaine HCl (Xylocaine 2% Topical 30gm Tube) 1 margareth 1X ONCE TP ; Start 09/22/19 at 08:30; Stop 09/22/19 at 08:35; Status DC Lidocaine HCl (Viscous Lidocaine) 15 ml 1X ONCE SWSW ; Start 09/22/19 at 08:30; Stop 09/22/19 at 08:35; Status DC Benzocaine (Hurricaine One) 2 spray 1X ONCE MM ; Start 09/22/19 at 08:30; Stop 09/22/19 at 08:35; Status DC Active Scripts Active Furosemide 40 Mg Tablet 40 Mg PO DAILY Aspirin Ec (Aspirin) 81 Mg Tablet. 81 Mg PO DAILYWBKFT Reported Ventolin Hfa Inhaler (Albuterol Sulfate) 18 Gm Hfa.aer.ad 2 Puff INH QID Entresto 24 mg-26 mg Tablet (Sacubitril/Valsartan) 1 Each Tablet 1 Each PO BID Warfarin Sodium 10 Mg Tablet 10 Mg PO UD Warfarin Sodium 5 Mg Tablet 5 Mg PO MONTU TAKE ON THURSDAY AND THURSDAY Atorvastatin Calcium 80 Mg Tablet 80 Mg PO HS Isosorbide Mononitrate Er (Isosorbide Mononitrate) 30 Mg Tab.er.24h 1 Tab PO DAILY Metformin Hcl 500 Mg Tablet 500 Mg PO BIDWMEALS Hold for 48 hours, next dose Tuesday 11/21 evening dose Coreg (Carvedilol) 25 Mg Tablet 25 Mg PO BIDWMEALS Vitals/I & O Vital Sign - Last 24 Hours 09/21/19 09/21/19 09/21/19 09/21/19 10:00 10:01 11:00 12:47 Temp 97.0 97.0 Pulse 103 103 96 96 Resp 20 B/P (MAP) 136/75 136/75 126/72 (90) 126/72 Pulse Ox 93 O2 Delivery Room Air 09/21/19 09/21/19 09/21/19 09/21/19 15:00 15:02 19:48 20:00 Temp 97.5 97.9 97.5 97.9 Pulse 81 87 Resp 18 18 B/P (MAP) 143/66 (91) 122/67 (85) Pulse Ox 97 98 O2 Delivery Room Air Room Air Room Air Room Air 09/21/19 09/22/19 09/22/19 09/22/19 22:25 02:30 07:00 08:54 Temp 98.0 97.4 97.6 98.0 97.4 97.6 Pulse 64 77 87 91 Resp 20 18 18 B/P (MAP) 117/64 (81) 121/61 (81) 120/66 (84) 133/73 Pulse Ox 96 95 91 O2 Delivery Room Air Room Air Room Air 09/22/19 08:55 Pulse 91 B/P (MAP) 133/73 Intake and Output 09/21/19 09/21/19 09/22/19 15:00 23:00 07:00 Intake Total 570 ml 180 ml 180 ml Output Total 1500 ml Balance 570 ml 180 ml -1320 ml VENECIA BOWERS MD Sep 22, 2019 09:15
--- NOTE | 2019-09-22 10:48 | PDOC ---
PULMONARY PROGRESS NOTES Subjective Patient less short of air, continues to smoke. Vitals Vital Signs Date Time Temp Pulse Resp B/P (MAP) Pulse Ox O2 Delivery O2 Flow Rate FiO2 09/22/19 10:27 98.3 57 18 109/59 94 Room Air 98.3 09/22/19 10:00 4 ROS: No Nausea, No Chest Pain, No Abdominal Pain, No Increase Cough Lungs: Crackles Cardiovascular: S1, S2 Abdomen: Soft Neuro Exam: Alert Extremities: Other (Mild edema) Skin: Warm Labs Laboratory Tests Test 09/20/19 11:05 09/20/19 12:56 09/20/19 16:05 09/20/19 19:00 White Blood Count 8.6 x10^3/uL (4.0-11.0) Red Blood Count 3.85 x10^6/uL (4.30-5.70) Hemoglobin 12.1 g/dL (13.0-17.5) Hematocrit 36.3 % (39.0-53.0) Mean Corpuscular Volume 95 fL (79-100) Mean Corpuscular Hemoglobin 32 pg (25-35) Mean Corpuscular Hemoglobin Concent 33 g/dL (31-37) Red Cell Distribution Width 16.0 % (11.5-14.5) Platelet Count 161 x10^3/uL (140-400) Neutrophils (%) (Auto) 74 % (31-73) Lymphocytes (%) (Auto) 18 % (24-48) Monocytes (%) (Auto) 7 % (0-9) Eosinophils (%) (Auto) 1 % (0-3) Basophils (%) (Auto) 1 % (0-3) Neutrophils # (Auto) 6.3 x10^3/uL (1.8-7.7) Lymphocytes # (Auto) 1.5 x10^3/uL (1.0-4.8) Monocytes # (Auto) 0.6 x10^3/uL (0.0-1.1) Eosinophils # (Auto) 0.1 x10^3/uL (0.0-0.7) Basophils # (Auto) 0.1 x10^3/uL (0.0-0.2) Prothrombin Time 49.5 SEC (11.7-14.0) Prothromb Time International Ratio 5.3 (0.8-1.1) Sodium Level 141 mmol/L (136-145) Potassium Level 3.3 mmol/L (3.5-5.1) Chloride Level 101 mmol/L (98-107) Carbon Dioxide Level 29 mmol/L (21-32) Anion Gap 11 (6-14) Blood Urea Nitrogen 29 mg/dL (8-26) Creatinine 1.7 mg/dL (0.7-1.3) Estimated GFR (Cockcroft-Gault) 39.5 BUN/Creatinine Ratio 17 (6-20) Glucose Level 235 mg/dL (70-99) Calcium Level 8.3 mg/dL (8.5-10.1) Magnesium Level 1.0 mg/dL (1.8-2.4) Total Bilirubin 0.8 mg/dL (0.2-1.0) Aspartate Amino Transf (AST/SGOT) 27 U/L (15-37) Alanine Aminotransferase (ALT/SGPT) 32 U/L (16-63) Alkaline Phosphatase 105 U/L (46-116) Troponin I Quantitative 0.023 ng/mL (0.000-0.055) 0.030 ng/mL (0.000-0.055) < 0.017 ng/mL (0.000-0.055) TP-Lcw-I-Type Natriuretic Peptide > 24898 pg/mL (0-449) Total Protein 6.6 g/dL (6.4-8.2) Albumin 3.1 g/dL (3.4-5.0) Albumin/Globulin Ratio 0.9 (1.0-1.7) Thyroid Stimulating Hormone (TSH) 1.757 uIU/mL (0.358-3.74) Coronavirus (COVID-19)(PCR) Not detected (NOT DETECT.) Test 09/21/19 04:00 09/21/19 15:00 09/21/19 17:06 09/21/19 21:34 White Blood Count 10.8 x10^3/uL (4.0-11.0) Red Blood Count 3.88 x10^6/uL (4.30-5.70) Hemoglobin 12.2 g/dL (13.0-17.5) Hematocrit 36.4 % (39.0-53.0) Mean Corpuscular Volume 94 fL (79-100) Mean Corpuscular Hemoglobin 31 pg (25-35) Mean Corpuscular Hemoglobin Concent 34 g/dL (31-37) Red Cell Distribution Width 15.6 % (11.5-14.5) Platelet Count 165 x10^3/uL (140-400) Neutrophils (%) (Auto) 86 % (31-73) Lymphocytes (%) (Auto) 9 % (24-48) Monocytes (%) (Auto) 5 % (0-9) Eosinophils (%) (Auto) 0 % (0-3) Basophils (%) (Auto) 0 % (0-3) Neutrophils # (Auto) 9.3 x10^3/uL (1.8-7.7) Lymphocytes # (Auto) 0.9 x10^3/uL (1.0-4.8) Monocytes # (Auto) 0.5 x10^3/uL (0.0-1.1) Eosinophils # (Auto) 0.0 x10^3/uL (0.0-0.7) Basophils # (Auto) 0.0 x10^3/uL (0.0-0.2) Segmented Neutrophils % 87 % (35-66) Band Neutrophils % 4 % (0-9) Lymphocytes % 5 % (24-48) Monocytes % 4 % (0-10) Platelet Estimate Adequate (ADEQUATE) Prothrombin Time 38.8 SEC (11.7-14.0) Prothromb Time International Ratio 3.9 (0.8-1.1) Sodium Level 136 mmol/L (136-145) 138 mmol/L (136-145) Potassium Level 3.8 mmol/L (3.5-5.1) 4.4 mmol/L (3.5-5.1) Chloride Level 98 mmol/L (98-107) 100 mmol/L (98-107) Carbon Dioxide Level 23 mmol/L (21-32) 28 mmol/L (21-32) Anion Gap 15 (6-14) 10 (6-14) Blood Urea Nitrogen 40 mg/dL (8-26) 44 mg/dL (8-26) Creatinine 2.1 mg/dL (0.7-1.3) 2.1 mg/dL (0.7-1.3) Estimated GFR (Cockcroft-Gault) 30.9 30.9 BUN/Creatinine Ratio 19 (6-20) Glucose Level 313 mg/dL (70-99) 374 mg/dL (70-99) Calcium Level 8.4 mg/dL (8.5-10.1) 8.0 mg/dL (8.5-10.1) Magnesium Level 1.9 mg/dL (1.8-2.4) Total Bilirubin 0.7 mg/dL (0.2-1.0) Aspartate Amino Transf (AST/SGOT) 20 U/L (15-37) Alanine Aminotransferase (ALT/SGPT) 30 U/L (16-63) Alkaline Phosphatase 106 U/L (46-116) Total Protein 6.6 g/dL (6.4-8.2) Albumin 3.0 g/dL (3.4-5.0) Albumin/Globulin Ratio 0.8 (1.0-1.7) Glucose (Fingerstick) 342 mg/dL (70-99) 223 mg/dL (70-99) Test 09/22/19 04:54 09/22/19 08:12 White Blood Count 11.1 x10^3/uL (4.0-11.0) Red Blood Count 3.59 x10^6/uL (4.30-5.70) Hemoglobin 11.2 g/dL (13.0-17.5) Hematocrit 33.4 % (39.0-53.0) Mean Corpuscular Volume 93 fL (79-100) Mean Corpuscular Hemoglobin 31 pg (25-35) Mean Corpuscular Hemoglobin Concent 34 g/dL (31-37) Red Cell Distribution Width 16.0 % (11.5-14.5) Platelet Count 171 x10^3/uL (140-400) Neutrophils (%) (Auto) 69 % (31-73) Lymphocytes (%) (Auto) 22 % (24-48) Monocytes (%) (Auto) 7 % (0-9) Eosinophils (%) (Auto) 1 % (0-3) Basophils (%) (Auto) 1 % (0-3) Neutrophils # (Auto) 7.7 x10^3/uL (1.8-7.7) Lymphocytes # (Auto) 2.4 x10^3/uL (1.0-4.8) Monocytes # (Auto) 0.8 x10^3/uL (0.0-1.1) Eosinophils # (Auto) 0.1 x10^3/uL (0.0-0.7) Basophils # (Auto) 0.1 x10^3/uL (0.0-0.2) Prothrombin Time 33.0 SEC (11.7-14.0) Prothromb Time International Ratio 3.2 (0.8-1.1) Sodium Level 140 mmol/L (136-145) Potassium Level 3.8 mmol/L (3.5-5.1) Chloride Level 103 mmol/L (98-107) Carbon Dioxide Level 29 mmol/L (21-32) Anion Gap 8 (6-14) Blood Urea Nitrogen 46 mg/dL (8-26) Creatinine 1.8 mg/dL (0.7-1.3) Estimated GFR (Cockcroft-Gault) 37.0 Glucose Level 153 mg/dL (70-99) Calcium Level 8.0 mg/dL (8.5-10.1) Total Bilirubin 0.4 mg/dL (0.2-1.0) Direct Bilirubin 0.2 mg/dL (0.0-0.2) Aspartate Amino Transf (AST/SGOT) 15 U/L (15-37) Alanine Aminotransferase (ALT/SGPT) 26 U/L (16-63) Alkaline Phosphatase 85 U/L (46-116) Total Protein 5.6 g/dL (6.4-8.2) Albumin 2.6 g/dL (3.4-5.0) Glucose (Fingerstick) 156 mg/dL (70-99) Laboratory Tests Test 09/21/19 15:00 09/21/19 17:06 09/21/19 21:34 09/22/19 04:54 Sodium Level 138 mmol/L (136-145) 140 mmol/L (136-145) Potassium Level 4.4 mmol/L (3.5-5.1) 3.8 mmol/L (3.5-5.1) Chloride Level 100 mmol/L (98-107) 103 mmol/L (98-107) Carbon Dioxide Level 28 mmol/L (21-32) 29 mmol/L (21-32) Anion Gap 10 (6-14) 8 (6-14) Blood Urea Nitrogen 44 mg/dL (8-26) 46 mg/dL (8-26) Creatinine 2.1 mg/dL (0.7-1.3) 1.8 mg/dL (0.7-1.3) Estimated GFR (Cockcroft-Gault) 30.9 37.0 Glucose Level 374 mg/dL (70-99) 153 mg/dL (70-99) Calcium Level 8.0 mg/dL (8.5-10.1) 8.0 mg/dL (8.5-10.1) Glucose (Fingerstick) 342 mg/dL (70-99) 223 mg/dL (70-99) White Blood Count 11.1 x10^3/uL (4.0-11.0) Red Blood Count 3.59 x10^6/uL (4.30-5.70) Hemoglobin 11.2 g/dL (13.0-17.5) Hematocrit 33.4 % (39.0-53.0) Mean Corpuscular Volume 93 fL (79-100) Mean Corpuscular Hemoglobin 31 pg (25-35) Mean Corpuscular Hemoglobin Concent 34 g/dL (31-37) Red Cell Distribution Width 16.0 % (11.5-14.5) Platelet Count 171 x10^3/uL (140-400) Neutrophils (%) (Auto) 69 % (31-73) Lymphocytes (%) (Auto) 22 % (24-48) Monocytes (%) (Auto) 7 % (0-9) Eosinophils (%) (Auto) 1 % (0-3) Basophils (%) (Auto) 1 % (0-3) Neutrophils # (Auto) 7.7 x10^3/uL (1.8-7.7) Lymphocytes # (Auto) 2.4 x10^3/uL (1.0-4.8) Monocytes # (Auto) 0.8 x10^3/uL (0.0-1.1) Eosinophils # (Auto) 0.1 x10^3/uL (0.0-0.7) Basophils # (Auto) 0.1 x10^3/uL (0.0-0.2) Prothrombin Time 33.0 SEC (11.7-14.0) Prothromb Time International Ratio 3.2 (0.8-1.1) Total Bilirubin 0.4 mg/dL (0.2-1.0) Direct Bilirubin 0.2 mg/dL (0.0-0.2) Aspartate Amino Transf (AST/SGOT) 15 U/L (15-37) Alanine Aminotransferase (ALT/SGPT) 26 U/L (16-63) Alkaline Phosphatase 85 U/L (46-116) Total Protein 5.6 g/dL (6.4-8.2) Albumin 2.6 g/dL (3.4-5.0) Test 09/22/19 08:12 Glucose (Fingerstick) 156 mg/dL (70-99) Medications Active Scripts Medications Dose Route/Sig Max Daily Dose Days Date Category Dose Instructions Ventolin Hfa Inhaler (Albuterol Sulfate) 18 Gm Hfa.aer.ad 2 Puff INH QID 09/20/19 Reported Entresto 24 mg-26 mg Tablet (Sacubitril/Valsartan) 1 Each Tablet 1 Each PO BID 09/20/19 Reported Warfarin Sodium 10 Mg Tablet 10 Mg PO UD 09/20/19 Reported Furosemide 40 Mg Tablet 40 Mg PO DAILY 06/21/19 Rx Aspirin Ec (Aspirin) 81 Mg Tablet.dr 81 Mg PO DAILYWBKFT 06/21/19 Rx Warfarin Sodium 5 Mg Tablet 5 Mg PO MONTU 06/20/19 Reported TAKE ON THURSDAY AND THURSDAY Atorvastatin Calcium 80 Mg Tablet 80 Mg PO HS 06/20/19 Reported Isosorbide Mononitrate Er (Isosorbide Mononitrate) 30 Mg Tab.er.24h 1 Tab PO DAILY 12/11/17 Reported Metformin Hcl 500 Mg Tablet 500 Mg PO BIDWMEALS 05/06/15 Reported Hold for 48 hours, next dose Tuesday 11/21 evening dose Coreg (Carvedilol) 25 Mg Tablet 25 Mg PO BIDWMEALS 09/20/19 Reported Impression . IMPRESSION: 1. Progressive dyspnea secondary to acute on chronic diastolic and systolic heart failure. 2. Abnormal chest x-ray, consistent with congestive heart failure, cardiomegaly and mild interstitial markings. 3. Atrial fibrillation with rapid ventricular response, contributing to heart failure. 4. Low clinical suspicion for COVID-19. 5. Underlying chronic obstructive pulmonary disease. Fifty years of tobacco use. Unknown FEV1. 6. Ischemic cardiomyopathy with an EF of 15-20%. 7. Acute kidney injury on chronic kidney disease. 8. Coagulopathy with Coumadin. No evidence of any bleeding. Plan . Diurese. Cardioversion with SHEELA Discontinue smoking 6-minute walk prior to discharge ALONDRA HORTON MD Sep 22, 2019 10:48
[2019-09-22] MEDS: ALLOPURINOL 100 MG TABLET. PO SCH (11:24)
--- NOTE | 2019-09-22 12:04 | NUR ---
SS following for discharge planning. SS reviewed pt chart and discussed with pt RN. Pt is currently on room air. Pt had SHEELA with Cardioversion today. Discharge plan is to home when medically stable. SS will continue to follow for discharge planning.
--- NOTE | 2019-09-22 12:49 | CARD ---
MR#: [id number] Date of Study: 09/22/2019 Ordering Physician: TORSTEN RODRIGUEZ, Referring Physician: TORSTEN RODRIGUEZ, Tech: Jesenia Myrick APPROVED REPORT EXAM: Transesophageal echocardiogram with color flow Doppler and Synchronized Cardioversion. INDICATION Atrial Fibrillation Surgery/Intervention Status/Post Aortic Valve Replacement: Mechanical Pacemaker: Date: 2014 RISK FACTORS Hypertension Diabetes Reason For Test : Rule out Intracardiac Thrombus. PROCEDURE After obtaining informed consent, patient underwent transesophageal echo in the PACU. Type of Sedation : General Anesthesia Sedation was administered by Radames Cobb. Sedation was achieved with Propofol 80mg intravenously. The SHEELA was performed without complications. Synchronized Cardioversion attempted: Successful Synchronized Cardioversion acheived with 200 Joules after 1 attempt(s). Rhythm following Synchronized Cardioversion: Normal Sinus Rhythm Throughout the procedure, the blood pressure, pulse oximetry, cardiac rhythm, and rate were monitored . The patient tolerated the procedure without adverse effects. Recovery from general anesthesia was une ventful and vital signs were stable. LEFT VENTRICLE The Left Ventricle is moderately dilated. There is normal left ventricular wall thickness. The systol ic function is severely impaired. The Ejection Fraction is 10-15%. There is global hypokinesis of the left ventricle. No left ventricle thrombus noted on this study. RIGHT VENTRICLE The right ventricle is normal size. There is normal right ventricular wall thickness. Systolic functi on is borderline reduced. There is a pacemaker lead in the right ventricle. ATRIA The left atrium is mildly dilated. The right atrium is borderline dilated. The interatrial septum is intact with no evidence for an atrial septal defect or patent foramen ovale as noted on 2-D or Dopple r imaging. There is no thrombus noted in the left atrial appendage. AORTIC VALVE Doppler and Color Flow revealed mild aortic regurgitation. There is no significant aortic valvular st enosis. There is a mechanical aortic valve prosthesis. The prosthetic aortic valve appears normal. MITRAL VALVE Mitral annular calcification is mild to moderate. There is no evidence of mitral valve prolapse. Ther e is no mitral valve stenosis. Doppler and Color-flow revealed moderate mitral regurgitation. TRICUSPID VALVE The tricuspid valve is normal in structure and function. Doppler and Color Flow revealed mild tricusp id regurgitation. There is no tricuspid valve stenosis. PULMONIC VALVE The pulmonic valve is not well visualized. GREAT VESSELS The aortic root is normal in size. The IVC is normal in size and collapses >50% with inspiration. Critical Notification Critical Value: No <Conclusion> The Left Ventricle is moderately dilated. The systolic function is severely impaired. The Ejection Fraction is 10-15%. There is global hypokinesis of the left ventricle. There is a mechanical aortic valve prosthesis. The prosthetic aortic valve appears normal. Doppler and Color-flow revealed moderate mitral regurgitation. Successful CVN to SR. Signed by : Florentin Perez, Electronically Approved : 09/22/2019 12:49:33
[2019-09-22] MEDS: MILRINONE 20MG/100ML PREMIX 100 ML IV PRN (18:43)
--- NOTE | 2019-09-22 19:15 | NUR ---
Pt sitting on side of bed assessment completed pt denied pain poc explained call light in reach will resume care and continue to monitor pt. CALL LIGHT IN REACH.
[2019-09-22] MEDS: ATORVASTATIN CALCIUM 40 MG TABLET. PO SCH (21:07)
[2019-09-22] MEDS: INSULIN GLARGINE SYRINGE. SQ SCH (21:13)
[2019-09-23] VITALS (19 sets, daily range): BP systolic 134–177; BP diastolic 62–80
[2019-09-23 05:26] LABS: PROTHROMBIN TIME PATIENT 23.8 SEC (11.7-14.0)
[2019-09-23] MEDS: INSULIN LISPRO 300 UNITS/3 ML VIAL. SQ SCH ×3 (08:00→18:27)
--- NOTE | 2019-09-23 08:37 | PDOC ---
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 INR down to 3.9 possible SHEELA on . Continue toprol per cards. dig per cards follow i's and o's hold entresto per cards follow bmp dvt ppx: elevated inr History of Present Illness History of Present Illness 09/21: Still wheezing a bit, but breathing improved overall. Rapid atrial fibrillation, COVID negative, transferred to [facility], successful SHEELA cardioversion today with EF 10-15% noted as well as global hypokinesis and mechanical aortic valve in place, hold off on RHC due to blood thinners. INR 2.1 today. Afebrile. Still with wheeze, but he feels less short of breath. He is asking when he can leave the hospital. No chest pain. Plans for right heart cath Vitals Vitals Vital Signs Date Time Temp Pulse Resp B/P (MAP) Pulse Ox O2 Delivery O2 Flow Rate FiO2 09/23/19 07:00 97.4 67 18 177/74 (108) 98 Room Air 97.4 09/22/19 10:00 4 Physical Exam General: Alert, Oriented X3, Cooperative, No acute distress Heart: Other (AFIB) Lungs: Crackles Abdomen: Soft Extremities: No cyanosis, Other (2+ pedal edema) Skin: No breakdown, No significant lesion Labs LABS Laboratory Tests Test 09/22/19 10:57 09/22/19 16:28 09/22/19 21:09 09/23/19 04:43 Glucose (Fingerstick) 147 mg/dL (70-99) 378 mg/dL (70-99) 164 mg/dL (70-99) Prothrombin Time 23.8 SEC (11.7-14.0) Prothromb Time International Ratio 2.1 (0.8-1.1) Test 09/23/19 07:12 Glucose (Fingerstick) 161 mg/dL (70-99) Assessment and Plan Assessmemt and Plan Problems Medical Problems: (1) Congestive heart failure Status: Acute (2) COPD with exacerbation Status: Acute (3) Rapid atrial fibrillation Status: Acute Comment Review of Relevant I have reviewed the following items raul (where applicable) has been applied. Labs Laboratory Tests Test 09/21/19 15:00 09/21/19 17:06 09/21/19 21:34 09/22/19 04:54 Sodium Level 138 mmol/L (136-145) 140 mmol/L (136-145) Potassium Level 4.4 mmol/L (3.5-5.1) 3.8 mmol/L (3.5-5.1) Chloride Level 100 mmol/L (98-107) 103 mmol/L (98-107) Carbon Dioxide Level 28 mmol/L (21-32) 29 mmol/L (21-32) Anion Gap 10 (6-14) 8 (6-14) Blood Urea Nitrogen 44 mg/dL (8-26) 46 mg/dL (8-26) Creatinine 2.1 mg/dL (0.7-1.3) 1.8 mg/dL (0.7-1.3) Estimated GFR (Cockcroft-Gault) 30.9 37.0 Glucose Level 374 mg/dL (70-99) 153 mg/dL (70-99) Calcium Level 8.0 mg/dL (8.5-10.1) 8.0 mg/dL (8.5-10.1) Glucose (Fingerstick) 342 mg/dL (70-99) 223 mg/dL (70-99) White Blood Count 11.1 x10^3/uL (4.0-11.0) Red Blood Count 3.59 x10^6/uL (4.30-5.70) Hemoglobin 11.2 g/dL (13.0-17.5) Hematocrit 33.4 % (39.0-53.0) Mean Corpuscular Volume 93 fL (79-100) Mean Corpuscular Hemoglobin 31 pg (25-35) Mean Corpuscular Hemoglobin Concent 34 g/dL (31-37) Red Cell Distribution Width 16.0 % (11.5-14.5) Platelet Count 171 x10^3/uL (140-400) Neutrophils (%) (Auto) 69 % (31-73) Lymphocytes (%) (Auto) 22 % (24-48) Monocytes (%) (Auto) 7 % (0-9) Eosinophils (%) (Auto) 1 % (0-3) Basophils (%) (Auto) 1 % (0-3) Neutrophils # (Auto) 7.7 x10^3/uL (1.8-7.7) Lymphocytes # (Auto) 2.4 x10^3/uL (1.0-4.8) Monocytes # (Auto) 0.8 x10^3/uL (0.0-1.1) Eosinophils # (Auto) 0.1 x10^3/uL (0.0-0.7) Basophils # (Auto) 0.1 x10^3/uL (0.0-0.2) Prothrombin Time 33.0 SEC (11.7-14.0) Prothromb Time International Ratio 3.2 (0.8-1.1) Total Bilirubin 0.4 mg/dL (0.2-1.0) Direct Bilirubin 0.2 mg/dL (0.0-0.2) Aspartate Amino Transf (AST/SGOT) 15 U/L (15-37) Alanine Aminotransferase (ALT/SGPT) 26 U/L (16-63) Alkaline Phosphatase 85 U/L (46-116) Total Protein 5.6 g/dL (6.4-8.2) Albumin 2.6 g/dL (3.4-5.0) Test 09/22/19 08:12 09/22/19 10:57 09/22/19 16:28 09/22/19 21:09 Glucose (Fingerstick) 156 mg/dL (70-99) 147 mg/dL (70-99) 378 mg/dL (70-99) 164 mg/dL (70-99) Test 09/23/19 04:43 09/23/19 07:12 Prothrombin Time 23.8 SEC (11.7-14.0) Prothromb Time International Ratio 2.1 (0.8-1.1) Glucose (Fingerstick) 161 mg/dL (70-99) Laboratory Tests Test 09/22/19 10:57 09/22/19 16:28 09/22/19 21:09 09/23/19 04:43 Glucose (Fingerstick) 147 mg/dL (70-99) 378 mg/dL (70-99) 164 mg/dL (70-99) Prothrombin Time 23.8 SEC (11.7-14.0) Prothromb Time International Ratio 2.1 (0.8-1.1) Test 09/23/19 07:12 Glucose (Fingerstick) 161 mg/dL (70-99) Medications Current Medications Albuterol/ Ipratropium (Duoneb) 3 ml 1X ONCE NEB Last administered on at 11:29; Start 09/20/19 at 11:15; Stop 09/20/19 at 11:16; Status DC Methylprednisolone Sodium Succinate (SOLU-Medrol 125MG VIAL) 125 mg 1X ONCE IV Last administered on 09/20/19at 11:28; Start 09/20/19 at 11:15; Stop 09/20/19 at 11:16; Status DC Diltiazem HCl (Cardizem Iv Push) 20 mg 1X ONCE IVP Last administered on 09/20/19at 11:30; Start 09/20/19 at 11:15; Stop 09/20/19 at 11:16; Status DC Furosemide (Lasix) 80 mg 1X ONCE IVP Last administered on 09/20/19at 13:46; Start 09/20/19 at 13:00; Stop 09/20/19 at 13:01; Status DC Ondansetron HCl (Zofran) 4 mg PRN Q8HRS PRN IV NAUSEA/VOMITING; Start 09/20/19 at 13:15; Stop 09/21/19 at 13:14; Status DC Acetaminophen (Tylenol) 650 mg PRN Q4HRS PRN PO FEVER > 100.3'F; Start 09/20/19 at 13:15; Stop 09/21/19 at 12:11; Status DC Albuterol/ Ipratropium (Duoneb) 3 ml RTQID NEB ; Start 09/20/19 at 16:00; Stop 09/21/19 at 15:59; Status DC Magnesium Sulfate 100 ml @ 25 mls/hr 1X ONCE IV Last administered on 09/20/19at 14:46; Start 09/20/19 at 14:15; Stop 09/20/19 at 18:14; Status DC Potassium Chloride (Klor-Con) 40 meq 1X ONCE PO Last administered on 09/20/19at 14:45; Start 09/20/19 at 14:15; Stop 09/20/19 at 14:16; Status DC Acetaminophen (Tylenol) 650 mg PRN Q4HRS PRN PO TEMP OVER 100.4F OR MILD PAIN; Start 09/20/19 at 15:15 Furosemide (Lasix) 40 mg BID92 IVP Last administered on 09/22/19at 15:38; Start 09/21/19 at 09:00 Metoprolol Tartrate (Lopressor) 25 mg Q6HRS PO Last administered on 09/20/19at 16:44; Start 09/20/19 at 15:45; Stop 09/20/19 at 23:59; Status DC Allopurinol (Zyloprim) 100 mg DAILY PO Last administered on 09/22/19at 11:24; Start 09/21/19 at 09:00 Aspirin (Ecotrin) 81 mg DAILYWBKFT PO Last administered on 09/22/19at 08:54; Start 09/21/19 at 08:00 Isosorbide Mononitrate (Imdur) 30 mg DAILY PO Last administered on 09/22/19at 08:55; Start 09/21/19 at 09:00 Metoprolol Succinate (Toprol Xl) 150 mg DAILY PO Last administered on 09/22/19at 08:54; Start 09/21/19 at 09:00 Sacubitril/ Valsartan (Entresto 49 Mg-51 Mg) 1 tab BID PO Last administered on 09/20/19at 22:21; Start 09/20/19 at 21:00; Stop 09/21/19 at 07:37; Status DC Atorvastatin Calcium (Lipitor) 80 mg QHS PO Last administered on 09/22/19at 21:07; Start 09/20/19 at 21:00 Digoxin (Lanoxin) 500 mcg 1X ONCE IV Last administered on 09/21/19at 12:47; Start 09/21/19 at 10:15; Stop 09/21/19 at 10:16; Status DC Milrinone Lactate/ Dextrose 100 ml @ 3.034 mls/ hr CONT PRN IV SEE I/O RECORD Last administered on 09/22/19at 18:43; Start 09/21/19 at 15:45 Insulin Glargine (Lantus Syringe) 10 unit QHS SQ Last administered on 6/25/20at 21:13; Start 09/21/19 at 21:00 Insulin Human Lispro (HumaLOG) 0-7 UNITS TIDWMEALS SQ ; Start 09/22/19 at 08:00; Stop 09/21/19 at 17:38; Status DC Dextrose (Dextrose 50%-Water Syringe) 12.5 gm PRN Q15MIN PRN IV SEE COMMENTS; Start 09/21/19 at 17:15 Insulin Human Lispro (HumaLOG) 0-7 UNITS TIDWMEALS SQ Last administered on 09/22/19at 17:53; Start 09/21/19 at 17:45 Albuterol Sulfate (Ventolin Neb Soln) 2.5 mg PRN Q4HRS PRN NEB WHEEZING; Start 09/21/19 at 22:45 Lidocaine HCl (Xylocaine 2% Topical 30gm Tube) 1 margareth 1X ONCE TP Last administered on 09/22/19at 10:09; Start 09/22/19 at 08:30; Stop 09/22/19 at 08:35; Status DC Lidocaine HCl (Viscous Lidocaine) 15 ml 1X ONCE SWSW Last administered on 09/22/19at 10:09; Start 09/22/19 at 08:30; Stop 09/22/19 at 08:35; Status DC Benzocaine (Hurricaine One) 2 spray 1X ONCE MM Last administered on 09/22/19at 09:50; Start 09/22/19 at 08:30; Stop 09/22/19 at 08:35; Status DC Active Scripts Active Furosemide 40 Mg Tablet 40 Mg PO DAILY Aspirin Ec (Aspirin) 81 Mg Tablet.dr 81 Mg PO DAILYWBKFT Reported Ventolin Hfa Inhaler (Albuterol Sulfate) 18 Gm Hfa.aer.ad 2 Puff INH QID Entresto 24 mg-26 mg Tablet (Sacubitril/Valsartan) 1 Each Tablet 1 Each PO BID Warfarin Sodium 10 Mg Tablet 10 Mg PO UD Warfarin Sodium 5 Mg Tablet 5 Mg PO MONTU TAKE ON THURSDAY AND THURSDAY Atorvastatin Calcium 80 Mg Tablet 80 Mg PO HS Isosorbide Mononitrate Er (Isosorbide Mononitrate) 30 Mg Tab.er.24h 1 Tab PO DA LOBITO Metformin Hcl 500 Mg Tablet 500 Mg PO BIDWMEALS Hold for 48 hours, next dose Tuesday 11/21 evening dose Coreg (Carvedilol) 25 Mg Tablet 25 Mg PO BIDWMEALS Vitals/I & O Vital Sign - Last 24 Hours 09/22/19 09/22/19 09/22/19 09/22/19 08:54 08:55 08:55 10:00 Pulse 91 99 91 Resp 20 B/P (MAP) 133/73 163/78 (106) 133/73 Pulse Ox 94 O2 Delivery Room Air Nasal Cannula O2 Flow Rate 4 09/22/19 09/22/19 09/22/19 09/22/19 10:00 10:15 10:26 10:27 Temp 98.3 98.3 98.3 98.3 98.3 98.3 Pulse 56 56 57 Resp 18 18 18 B/P (MAP) 129/55 107/57 109/59 Pulse Ox 99 92 94 O2 Delivery Nasal Cannula Room Air Room Air Room Air O2 Flow Rate 4 09/22/19 09/22/19 09/22/19 09/22/19 10:42 10:55 11:00 11:55 Temp 98.0 98.0 Pulse 69 64 54 66 Resp 18 18 18 18 B/P (MAP) 149/67 (94) 127/67 (87) 124/61 (82) 140/68 (92) Pulse Ox 96 96 92 96 O2 Delivery Room Air Room Air Room Air Room Air 09/22/19 09/22/19 09/22/19 09/22/19 12:55 13:55 14:55 15:00 Temp 98.0 98.0 Pulse 61 80 74 61 Resp 18 18 18 18 B/P (MAP) 125/64 (84) 136/63 (87) 123/60 (81) 121/53 (75) Pulse Ox 92 92 95 91 O2 Delivery Room Air Room Air Room Air Room Air 09/22/19 09/22/19 09/22/19 09/22/19 15:55 16:55 17:55 18:55 Pulse 79 62 64 78 Resp 18 18 18 18 B/P (MAP) 135/63 (87) 137/62 (87) 134/85 (101) 114/87 (96) Pulse Ox 94 96 94 95 O2 Delivery Room Air Room Air Room Air Room Air 09/22/19 09/22/19 09/22/19 09/23/19 19:00 19:15 23:00 01:55 Temp 98.9 98.6 98.9 98.6 Pulse 66 59 Resp 18 20 B/P (MAP) 109/55 (73) 144/73 (96) Pulse Ox 96 92 97 O2 Delivery Room Air Room Air Room Air 09/23/19 09/23/19 03:02 07:00 Temp 98.4 97.4 98.4 97.4 Pulse 76 67 Resp 18 18 B/P (MAP) 150/72 (98) 177/74 (108) Pulse Ox 96 98 O2 Delivery Room Air Room Air Intake and Output 09/22/19 09/22/19 09/23/19 15:00 23:00 07:00 Intake Total 941 ml 0 ml Output Total 860 ml 620 ml 300 ml Balance -860 ml 321 ml -300 ml Images SHEELA results: The Left Ventricle is moderately dilated. The systolic function is severely impaired. The Ejection Fraction is 10-15%. There is global hypokinesis of the left ventricle. There is a mechanical aortic valve prosthesis. The prosthetic aortic valve appears normal. Doppler and Color-flow revealed moderate mitral regurgitation. Successful CVN to VENECIA PAIGE MD Sep 23, 2019 08:37
[2019-09-23] MEDS: ALLOPURINOL 100 MG TABLET. PO SCH (08:51)
[2019-09-23] MEDS: ASPIRIN ENTERIC COATED 81 MG TABLET.DR. PO SCH (08:51)
[2019-09-23] MEDS: ISOSORBIDE MONONITRATE ER 30 MG TAB.ER.24H PO SCH (08:52)
[2019-09-23] MEDS: METOPROLOL SUCC 24HR ER 50 MG TAB.ER.24H. PO SCH (08:52)
[2019-09-23] MEDS: FUROSEMIDE 40 MG/4 ML VIAL. IVP SCH ×2 (09:00→15:35)
--- NOTE | 2019-09-23 09:36 | PDOC ---
PULMONARY PROGRESS NOTES Subjective Patient less short of air, continues to smoke. Vitals Vital Signs Date Time Temp Pulse Resp B/P (MAP) Pulse Ox O2 Delivery O2 Flow Rate FiO2 09/23/19 08:52 67 177/74 09/23/19 07:00 97.4 18 98 Room Air 97.4 09/22/19 10:00 4 ROS: No Nausea, No Chest Pain, No Abdominal Pain, No Increase Cough Lungs: Crackles Cardiovascular: S1, S2 Abdomen: Soft Neuro Exam: Alert Extremities: Other (Mild edema) Skin: Warm Labs Laboratory Tests Test 09/21/19 15:00 09/21/19 17:06 09/21/19 21:34 09/22/19 04:54 Sodium Level 138 mmol/L (136-145) 140 mmol/L (136-145) Potassium Level 4.4 mmol/L (3.5-5.1) 3.8 mmol/L (3.5-5.1) Chloride Level 100 mmol/L (98-107) 103 mmol/L (98-107) Carbon Dioxide Level 28 mmol/L (21-32) 29 mmol/L (21-32) Anion Gap 10 (6-14) 8 (6-14) Blood Urea Nitrogen 44 mg/dL (8-26) 46 mg/dL (8-26) Creatinine 2.1 mg/dL (0.7-1.3) 1.8 mg/dL (0.7-1.3) Estimated GFR (Cockcroft-Gault) 30.9 37.0 Glucose Level 374 mg/dL (70-99) 153 mg/dL (70-99) Calcium Level 8.0 mg/dL (8.5-10.1) 8.0 mg/dL (8.5-10.1) Glucose (Fingerstick) 342 mg/dL (70-99) 223 mg/dL (70-99) White Blood Count 11.1 x10^3/uL (4.0-11.0) Red Blood Count 3.59 x10^6/uL (4.30-5.70) Hemoglobin 11.2 g/dL (13.0-17.5) Hematocrit 33.4 % (39.0-53.0) Mean Corpuscular Volume 93 fL (79-100) Mean Corpuscular Hemoglobin 31 pg (25-35) Mean Corpuscular Hemoglobin Concent 34 g/dL (31-37) Red Cell Distribution Width 16.0 % (11.5-14.5) Platelet Count 171 x10^3/uL (140-400) Neutrophils (%) (Auto) 69 % (31-73) Lymphocytes (%) (Auto) 22 % (24-48) Monocytes (%) (Auto) 7 % (0-9) Eosinophils (%) (Auto) 1 % (0-3) Basophils (%) (Auto) 1 % (0-3) Neutrophils # (Auto) 7.7 x10^3/uL (1.8-7.7) Lymphocytes # (Auto) 2.4 x10^3/uL (1.0-4.8) Monocytes # (Auto) 0.8 x10^3/uL (0.0-1.1) Eosinophils # (Auto) 0.1 x10^3/uL (0.0-0.7) Basophils # (Auto) 0.1 x10^3/uL (0.0-0.2) Prothrombin Time 33.0 SEC (11.7-14.0) Prothromb Time International Ratio 3.2 (0.8-1.1) Total Bilirubin 0.4 mg/dL (0.2-1.0) Direct Bilirubin 0.2 mg/dL (0.0-0.2) Aspartate Amino Transf (AST/SGOT) 15 U/L (15-37) Alanine Aminotransferase (ALT/SGPT) 26 U/L (16-63) Alkaline Phosphatase 85 U/L (46-116) Total Protein 5.6 g/dL (6.4-8.2) Albumin 2.6 g/dL (3.4-5.0) Test 09/22/19 08:12 09/22/19 10:57 09/22/19 16:28 09/22/19 21:09 Glucose (Fingerstick) 156 mg/dL (70-99) 147 mg/dL (70-99) 378 mg/dL (70-99) 164 mg/dL (70-99) Test 09/23/19 04:43 09/23/19 07:12 Prothrombin Time 23.8 SEC (11.7-14.0) Prothromb Time International Ratio 2.1 (0.8-1.1) Glucose (Fingerstick) 161 mg/dL (70-99) Laboratory Tests Test 09/22/19 10:57 09/22/19 16:28 09/22/19 21:09 09/23/19 04:43 Glucose (Fingerstick) 147 mg/dL (70-99) 378 mg/dL (70-99) 164 mg/dL (70-99) Prothrombin Time 23.8 SEC (11.7-14.0) Prothromb Time International Ratio 2.1 (0.8-1.1) Test 09/23/19 07:12 Glucose (Fingerstick) 161 mg/dL (70-99) Medications Active Scripts Medications Dose Route/Sig Max Daily Dose Days Date Category Dose Instructions Ventolin Hfa Inhaler (Albuterol Sulfate) 18 Gm Hfa.aer.ad 2 Puff INH QID 09/20/19 Reported Entresto 24 mg-26 mg Tablet (Sacubitril/Valsartan) 1 Each Tablet 1 Each PO BID 09/20/19 Reported Warfarin Sodium 10 Mg Tablet 10 Mg PO UD 09/20/19 Reported Furosemide 40 Mg Tablet 40 Mg PO DAILY 06/21/19 Rx Aspirin Ec (Aspirin) 81 Mg Tablet.dr 81 Mg PO DAILYWBKFT 06/21/19 Rx Warfarin Sodium 5 Mg Tablet 5 Mg PO MONTU 06/20/19 Reported TAKE ON THURSDAY AND THURSDAY Atorvastatin Calcium 80 Mg Tablet 80 Mg PO HS 06/20/19 Reported Isosorbide Mononitrate Er (Isosorbide Mononitrate) 30 Mg Tab.er.24h 1 Tab PO DAILY 12/11/17 Reported Metformin Hcl 500 Mg Tablet 500 Mg PO BIDWMEALS 05/06/15 Reported Hold for 48 hours, next dose Tuesday 11/21 evening dose Coreg (Carvedilol) 25 Mg Tablet 25 Mg PO BIDWMEALS 09/20/19 Reported Impression . IMPRESSION: 1. Progressive dyspnea secondary to acute on chronic diastolic and systolic heart failure. 2. Abnormal chest x-ray, consistent with congestive heart failure, cardiomegaly and mild interstitial markings. 3. Atrial fibrillation with rapid ventricular response, contributing to heart failure. 4. Low clinical suspicion for COVID-19. 5. Underlying chronic obstructive pulmonary disease. Fifty years of tobacco use. Unknown FEV1. 6. Ischemic cardiomyopathy with an EF of 15-20%. 7. Acute kidney injury on chronic kidney disease. 8. Coagulopathy with Coumadin. No evidence of any bleeding. Plan . Catheterization today Cardioversion with SHEELA Discontinue smoking 6-minute walk prior to discharge ALONDRA HORTON MD Sep 23, 2019 09:36
[2019-09-23] MEDS ORDERED: LIDOCAINE 1% Multi-Dose 20 ML VIAL. ONE (10:06)
[2019-09-23] MEDS ORDERED: fentaNYL PF VIAL 100 MCG/2 ML VIAL ONE (11:46)
[2019-09-23] MEDS ORDERED: MIDAZOLAM HCL/PF 2 MG/2 ML VIAL. ONE (11:47)
[2019-09-23] MEDS ORDERED: LIDOCAINE 1% Multi-Dose 20 ML VIAL. INJ ONE (12:00)
--- NOTE | 2019-09-23 12:17 | NUR ---
SS following for discharge planning. SS reviewed pt chart and discussed with pt RN. Pt is currently on room air. Pt on Milrinone drip. SS will continue to follow for discharge planning.
[2019-09-23] MEDS ORDERED: fentaNYL PF VIAL 100 MCG/2 ML VIAL IV ONE (12:30)
[2019-09-23] MEDS ORDERED: MIDAZOLAM HCL/PF 2 MG/2 ML VIAL. IV ONE (12:30)
--- NOTE | 2019-09-23 14:47 | CARD ---
MR#: [id number] Date of Study: 09/23/2019 Ordering Physician: TORSTEN RODRIGUEZ, Referring Physician: TORSTEN RODRIGUEZ Tech: LUZ RODAS RTR APPROVED REPORT Technologist: LUZ RODAS RTR Nurse: Isadora Nichole RN Procedure(s) performed: MODERATE SEDATION TIME: 25 MINUTES FLUORO TIME: 3.1 MIN DOSE: 6.86 GYCM2 RHC HISTORY : The patient is a 74 year-old male with a history of . INDICATION The indication(s) include : dyspnea, valvular heart disease. PROCEDURE NARRATIVE After appropriate informed consent the patient was brought to the catheterization laboratory. The [facility] groin was prepped and draped in usual sterile fashion. Under 2% lidocaine local anesthesia a 5 [place] sheath was placed in the right common femoral vein. N ext, a PA catheter was advanced to the right heart chambers into the wedge position. Saturations wer e obtained. Findings: O2 saturation 98% on 2 L nasal cannula BP: 128/82 by manual cuff pressure RA pressure: 21/16/14 RV 54/10/14 PA: 53/25/26 Pulmonary capillary wedge pressure 29 PA saturation 65% Radha cardiac output 4.5 and Radha cardiac index 2.2 Conclusion 1. Elevated biventricular filling pressures consistent with acute on chronic systolic and diastolic heart failure and secondary pulmonary hypertension 2. Low cardiac output. Recommendations 1. Continue diuresis overnight plan for discharge tomorrow with a standing weight and oral diuretic therapy. Signed by : Florentin Perez, Electronically Approved : 09/23/2019 14:47:12
--- NOTE | 2019-09-23 20:25 | NUR ---
Assessment completed vss poc explained pt denied pain will resume care and continue to monitor pt.
[2019-09-23] MEDS: ATORVASTATIN CALCIUM 40 MG TABLET. PO SCH (21:36)
[2019-09-23] MEDS: INSULIN GLARGINE SYRINGE. SQ SCH (21:40)
[2019-09-24 03:00] VITALS: BP 125/62
[2019-09-24 05:27] LABS: BASO % 0 % (0-3); EOS # 0.1 x10^3/uL (0.0-0.7); EOS % 1 % (0-3); HEMATOCRIT 35.2 % (39.0-53.0); HEMOGLOBIN 11.9 g/dL (13.0-17.5); LYMPH # 1.3 x10^3/uL (1.0-4.8); LYMPH % 13 % (24-48); MEAN CORPUSCULAR HEMOGLOBIN 32 pg (25-35); MEAN CORPUSCULAR HGB CONC 34 g/dL (31-37); MEAN CORPUSCULAR VOLUME 94 fL (79-100); MONO # 0.7 x10^3/uL (0.0-1.1); MONO % 7 % (0-9); NEUT # 7.7 x10^3/uL (1.8-7.7); NEUT % 78 % (31-73); PLATELET COUNT 170 x10^3/uL (140-400); RED BLOOD COUNT 3.74 x10^6/uL (4.30-5.70); RED CELL DISTRIBUTION WIDTH 16.3 % (11.5-14.5); WHITE BLOOD COUNT 9.9 x10^3/uL (4.0-11.0)
[2019-09-24 05:58] LABS: CALCIUM 8.6 mg/dL (8.5-10.1); CREATININE 1.6 mg/dL (0.7-1.3); GFR 42.3; MAGNESIUM 1.5 mg/dL (1.8-2.4)
[2019-09-24 07:00] VITALS: BP 173/66
--- NOTE | 2019-09-24 08:28 | PDOC ---
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 INR down to 3.9 possible SHEELA on . Continue toprol per cards. dig per cards follow i's and o's hold entresto per cards follow bmp dvt ppx: elevated inr History of Present Illness History of Present Illness Mr Oconnell is a 74 yo male w/ PMHx chronic diastolic/systolic CHF, ICM with EF 15-20% s/p AICD, AFIB with RVR, CAD s/p CABG, s/p Mechanical AVR, CKD3, COPD with continued tobaccoism, Hypokalemia with severe hypomagnesemia admitted for complains of shortness of breath. since Thursday he has been having periods of PND and was orthopneic and complaining of insomnia. He also has been having palpitations that intermittently occurs. No chest pain, diaphoresis, wheezing. No intractable coughing and has been compliant with his medications, HF regimen including FR and low salt diet. H has COPD but does not appear to have exacerbation and no complains of any recent respiratory infection. He was at [facility] at least thats what he could remember and could not tell me when exactly but was recent. His ankle has been more swollen lately. Pt is not a reliable historian when it comes to event of his recent hospitalization and accuracy of his meds. It appears that his entresto has been increased likely prior to DC from [facility] but may have not filled it and was noted to have been complaining to have been out of entresto for 2 weeks. Found with INR 5.3, in acute CHF and COPD with rapid afib. Cardiology and pulmonology consulted. COVID 19 negative 09/21: Still wheezing a bit, but breathing improved overall. Rapid atrial fibrillation, COVID negative, transferred to CVC, successful SHEELA cardioversion today with EF 10-15% noted as well as global hypokinesis and mechanical aortic valve in place, hold off on RHC due to blood thinners. 09/22: INR 2.1 today. Afebrile. Still with wheeze, but he feels less short of breath. He is asking when he can leave the hospital. No chest pain. Right heart cath with increased pressures consistent with systolic and diastolic acute CHF, diuresed IV 40mg BID. INR 1.5 today. Ready to go home, transition to PO lasix and PO mag. Stop metformin and start januvia and jardiance. Vitals Vitals Vital Signs Date Time Temp Pulse Resp B/P (MAP) Pulse Ox O2 Delivery O2 Flow Rate FiO2 09/24/19 03:00 97.3 78 16 125/62 (83) 95 Room Air 97.3 09/23/19 13:25 2.0 Physical Exam General: Alert, Oriented X3, Cooperative, No acute distress Heart: Other (AFIB) Lungs: Crackles Abdomen: Soft Extremities: No cyanosis, Other (2+ pedal edema) Skin: No breakdown, No significant lesion Labs LABS Laboratory Tests Test 09/23/19 11:29 09/23/19 16:29 09/23/19 20:25 09/24/19 04:47 Glucose (Fingerstick) 143 mg/dL (70-99) 297 mg/dL (70-99) 90 mg/dL (70-99) White Blood Count 9.9 x10^3/uL (4.0-11.0) Red Blood Count 3.74 x10^6/uL (4.30-5.70) Hemoglobin 11.9 g/dL (13.0-17.5) Hematocrit 35.2 % (39.0-53.0) Mean Corpuscular Volume 94 fL (79-100) Mean Corpuscular Hemoglobin 32 pg (25-35) Mean Corpuscular Hemoglobin Concent 34 g/dL (31-37) Red Cell Distribution Width 16.3 % (11.5-14.5) Platelet Count 170 x10^3/uL (140-400) Neutrophils (%) (Auto) 78 % (31-73) Lymphocytes (%) (Auto) 13 % (24-48) Monocytes (%) (Auto) 7 % (0-9) Eosinophils (%) (Auto) 1 % (0-3) Basophils (%) (Auto) 0 % (0-3) Neutrophils # (Auto) 7.7 x10^3/uL (1.8-7.7) Lymphocytes # (Auto) 1.3 x10^3/uL (1.0-4.8) Monocytes # (Auto) 0.7 x10^3/uL (0.0-1.1) Eosinophils # (Auto) 0.1 x10^3/uL (0.0-0.7) Basophils # (Auto) 0.0 x10^3/uL (0.0-0.2) Prothrombin Time 18.0 SEC (11.7-14.0) Prothromb Time International Ratio 1.5 (0.8-1.1) Sodium Level 140 mmol/L (136-145) Potassium Level 4.0 mmol/L (3.5-5.1) Chloride Level 102 mmol/L (98-107) Carbon Dioxide Level 29 mmol/L (21-32) Anion Gap 9 (6-14) Blood Urea Nitrogen 44 mg/dL (8-26) Creatinine 1.6 mg/dL (0.7-1.3) Estimated GFR (Cockcroft-Gault) 42.3 Glucose Level 215 mg/dL (70-99) Calcium Level 8.6 mg/dL (8.5-10.1) Magnesium Level 1.5 mg/dL (1.8-2.4) Test 09/24/19 08:14 Glucose (Fingerstick) 191 mg/dL (70-99) Assessment and Plan Assessmemt and Plan Problems Medical Problems: (1) Congestive heart failure Status: Acute (2) COPD with exacerbation Status: Acute (3) Rapid atrial fibrillation Status: Acute Comment Review of Relevant I have reviewed the following items raul (where applicable) has been applied. Labs Laboratory Tests Test 09/22/19 10:57 09/22/19 16:28 09/22/19 21:09 09/23/19 04:43 Glucose (Fingerstick) 147 mg/dL (70-99) 378 mg/dL (70-99) 164 mg/dL (70-99) Prothrombin Time 23.8 SEC (11.7-14.0) Prothromb Time International Ratio 2.1 (0.8-1.1) Test 09/23/19 07:12 09/23/19 11:29 09/23/19 16:29 09/23/19 20:25 Glucose (Fingerstick) 161 mg/dL (70-99) 143 mg/dL (70-99) 297 mg/dL (70-99) 90 mg/dL (70-99) Test 09/24/19 04:47 09/24/19 08:14 White Blood Count 9.9 x10^3/uL (4.0-11.0) Red Blood Count 3.74 x10^6/uL (4.30-5.70) Hemoglobin 11.9 g/dL (13.0-17.5) Hematocrit 35.2 % (39.0-53.0) Mean Corpuscular Volume 94 fL (79-100) Mean Corpuscular Hemoglobin 32 pg (25-35) Mean Corpuscular Hemoglobin Concent 34 g/dL (31-37) Red Cell Distribution Width 16.3 % (11.5-14.5) Platelet Count 170 x10^3/uL (140-400) Neutrophils (%) (Auto) 78 % (31-73) Lymphocytes (%) (Auto) 13 % (24-48) Monocytes (%) (Auto) 7 % (0-9) Eosinophils (%) (Auto) 1 % (0-3) Basophils (%) (Auto) 0 % (0-3) Neutrophils # (Auto) 7.7 x10^3/uL (1.8-7.7) Lymphocytes # (Auto) 1.3 x10^3/uL (1.0-4.8) Monocytes # (Auto) 0.7 x10^3/uL (0.0-1.1) Eosinophils # (Auto) 0.1 x10^3/uL (0.0-0.7) Basophils # (Auto) 0.0 x10^3/uL (0.0-0.2) Prothrombin Time 18.0 SEC (11.7-14.0) Prothromb Time International Ratio 1.5 (0.8-1.1) Sodium Level 140 mmol/L (136-145) Potassium Level 4.0 mmol/L (3.5-5.1) Chloride Level 102 mmol/L (98-107) Carbon Dioxide Level 29 mmol/L (21-32) Anion Gap 9 (6-14) Blood Urea Nitrogen 44 mg/dL (8-26) Creatinine 1.6 mg/dL (0.7-1.3) Estimated GFR (Cockcroft-Gault) 42.3 Glucose Level 215 mg/dL (70-99) Calcium Level 8.6 mg/dL (8.5-10.1) Magnesium Level 1.5 mg/dL (1.8-2.4) Glucose (Fingerstick) 191 mg/dL (70-99) Laboratory Tests Test 09/23/19 11:29 09/23/19 16:29 09/23/19 20:25 09/24/19 04:47 Glucose (Fingerstick) 143 mg/dL (70-99) 297 mg/dL (70-99) 90 mg/dL (70-99) White Blood Count 9.9 x10^3/uL (4.0-11.0) Red Blood Count 3.74 x10^6/uL (4.30-5.70) Hemoglobin 11.9 g/dL (13.0-17.5) Hematocrit 35.2 % (39.0-53.0) Mean Corpuscular Volume 94 fL (79-100) Mean Corpuscular Hemoglobin 32 pg (25-35) Mean Corpuscular Hemoglobin Concent 34 g/dL (31-37) Red Cell Distribution Width 16.3 % (11.5-14.5) Platelet Count 170 x10^3/uL (140-400) Neutrophils (%) (Auto) 78 % (31-73) Lymphocytes (%) (Auto) 13 % (24-48) Monocytes (%) (Auto) 7 % (0-9) Eosinophils (%) (Auto) 1 % (0-3) Basophils (%) (Auto) 0 % (0-3) Neutrophils # (Auto) 7.7 x10^3/uL (1.8-7.7) Lymphocytes # (Auto) 1.3 x10^3/uL (1.0-4.8) Monocytes # (Auto) 0.7 x10^3/uL (0.0-1.1) Eosinophils # (Auto) 0.1 x10^3/uL (0.0-0.7) Basophils # (Auto) 0.0 x10^3/uL (0.0-0.2) Prothrombin Time 18.0 SEC (11.7-14.0) Prothromb Time International Ratio 1.5 (0.8-1.1) Sodium Level 140 mmol/L (136-145) Potassium Level 4.0 mmol/L (3.5-5.1) Chloride Level 102 mmol/L (98-107) Carbon Dioxide Level 29 mmol/L (21-32) Anion Gap 9 (6-14) Blood Urea Nitrogen 44 mg/dL (8-26) Creatinine 1.6 mg/dL (0.7-1.3) Estimated GFR (Cockcroft-Gault) 42.3 Glucose Level 215 mg/dL (70-99) Calcium Level 8.6 mg/dL (8.5-10.1) Magnesium Level 1.5 mg/dL (1.8-2.4) Test 09/24/19 08:14 Glucose (Fingerstick) 191 mg/dL (70-99) Medications Current Medications Albuterol/ Ipratropium (Duoneb) 3 ml 1X ONCE NEB Last administered on 09/20/19at 11:29; Start 09/20/19 at 11:15; Stop 09/20/19 at 11:16; Status DC Methylprednisolone Sodium Succinate (SOLU-Medrol 125MG VIAL) 125 mg 1X ONCE IV Last administered on 09/20/19at 11:28; Start 09/20/19 at 11:15; Stop 09/20/19 at 11:16; Status DC Diltiazem HCl (Cardizem Iv Push) 20 mg 1X ONCE IVP Last administered on 09/20/19at 11:30; Start 09/20/19 at 11:15; Stop 09/20/19 at 11:16; Status DC Furosemide (Lasix) 80 mg 1X ONCE IVP Last administered on 09/20/19at 13:46; Start 09/20/19 at 13:00; Stop 09/20/19 at 13:01; Status DC Ondansetron HCl (Zofran) 4 mg PRN Q8HRS PRN IV NAUSEA/VOMITING; Start 09/20/19 at 13:15; Stop 09/21/19 at 13:14; Status DC Acetaminophen (Tylenol) 650 mg PRN Q4HRS PRN PO FEVER > 100.3'F; Start 09/20/19 at 13:15; Stop 09/21/19 at 12:11; Status DC Albuterol/ Ipratropium (Duoneb) 3 ml RTQID NEB ; Start 09/20/19 at 16:00; Stop 09/21/19 at 15:59; Status DC Magnesium Sulfate 100 ml @ 25 mls/hr 1X ONCE IV Last administered on 09/20/19at 14:46; Start 09/20/19 at 14:15; Stop 09/20/19 at 18:14; Status DC Potassium Chloride (Klor-Con) 40 meq 1X ONCE PO Last administered on 09/20/19at 14:45; Start 09/20/19 at 14:15; Stop 09/20/19 at 14:16; Status DC Acetaminophen (Tylenol) 650 mg PRN Q4HRS PRN PO TEMP OVER 100.4F OR MILD PAIN Last administered on 09/24/19at 03:07; Start 09/20/19 at 15:15 Furosemide (Lasix) 40 mg BID92 IVP Last administered on 09/23/19at 15:35; Start 09/21/19 at 09:00 Metoprolol Tartrate (Lopressor) 25 mg Q6HRS PO Last administered on 09/20/19at 16:44; Start 09/20/19 at 15:45; Stop 09/20/19 at 23:59; Status DC Allopurinol (Zyloprim) 100 mg DAILY PO Last administered on 09/23/19at 08:51; Start 09/21/19 at 09:00 Aspirin (Ecotrin) 81 mg DAILYWBKFT PO Last administered on 09/23/19at 08:51; Start 09/21/19 at 08:00 Isosorbide Mononitrate (Imdur) 30 mg DAILY PO Last administered on 09/23/19at 08:52; Start 09/21/19 at 09:00 Metoprolol Succinate (Toprol Xl) 150 mg DAILY PO Last administered on 09/23/19at 08:52; Start 09/21/19 at 09:00 Sacubitril/ Valsartan (Entresto 49 Mg-51 Mg) 1 tab BID PO Last administered on 09/20/19at 22:21; Start 09/20/19 at 21:00; Stop 09/21/19 at 07:37; Status DC Atorvastatin Calcium (Lipitor) 80 mg QHS PO Last administered on 09/23/19at 21:36; Start 09/20/19 at 21:00 Digoxin (Lanoxin) 500 mcg 1X ONCE IV Last administered on 09/21/19at 12:47; Start 09/21/19 at 10:15; Stop 09/21/19 at 10:16; Status DC Milrinone Lactate/ Dextrose 100 ml @ 3.034 mls/ hr CONT PRN IV SEE I/O RECORD Last administered on 09/22/19at 18:43; Start 09/21/19 at 15:45; Stop 09/23/19 at 17:02; Status DC Insulin Glargine (Lantus Syringe) 10 unit QHS SQ Last administered on 09/23/19at 21:40; Start 09/21/19 at 21:00 Insulin Human Lispro (HumaLOG) 0-7 UNITS TIDWMEALS SQ ; Start 09/22/19 at 08:00; Stop 09/21/19 at 17:38; Status DC Dextrose (Dextrose 50%-Water Syringe) 12.5 gm PRN Q15MIN PRN IV SEE COMMENTS; Start 09/21/19 at 17:15 Insulin Human Lispro (HumaLOG) 0-7 UNITS TIDWMEALS SQ Last administered on 09/23/19at 18:27; Start 09/21/19 at 17:45 Albuterol Sulfate (Ventolin Neb Soln) 2.5 mg PRN Q4HRS PRN NEB WHEEZING; Start 09/21/19 at 22:45 Lidocaine HCl (Xylocaine 2% Topical 30gm Tube) 1 margareth 1X ONCE TP Last administered on 09/22/19at 10:09; Start 09/22/19 at 08:30; Stop 09/22/19 at 08:35; Status DC Lidocaine HCl (Viscous Lidocaine) 15 ml 1X ONCE SWSW Last administered on 09/22/19at 10:09; Start 09/22/19 at 08:30; Stop 09/22/19 at 08:35; Status DC Benzocaine (Hurricaine One) 2 spray 1X ONCE MM Last administered on 09/22/19at 09:50; Start 09/22/19 at 08:30; Stop 09/22/19 at 08:35; Status DC Lidocaine HCl (Lidocaine 1% 20ml Vial) 20 ml STK-MED ONCE .ROUTE ; Start 08/29 09/16 at 10:06; Stop 09/23/19 at 10:07; Status DC Heparin Sodium/ Sodium Chloride 500 ml @ As Directed STK-MED ONCE .ROUTE ; S tart 09/23/19 at 10:07; Stop 09/23/19 at 10:07; Status DC Fentanyl Citrate (Fentanyl 2ml Vial) 100 mcg STK-MED ONCE .ROUTE ; Start 09/23/19 at 11:46; Stop 09/23/19 at 11:47; Status DC Midazolam HCl (Versed) 2 mg STK-MED ONCE .ROUTE ; Start 09/23/19 at 11:47; Stop 09/23/19 at 11:47; Status DC Heparin Sodium/ Sodium Chloride (HEPARIN for ARTERIAL LINE FLUSH) 1,000 unit 1X ONCE IART Last administered on 09/23/19at 12:00; Start 09/23/19 at 12:00; Stop 09/23/19 at 12:01; Status DC Heparin Sodium/ Sodium Chloride (HEPARIN for ARTERIAL LINE FLUSH) 1,000 unit 1X ONCE IART Last administered on 09/23/19at 12:00; Start 09/23/19 at 12:00; Stop 09/23/19 at 12:01; Status DC Lidocaine HCl (Lidocaine 1% 20ml Vial) 20 ml 1X ONCE INJ Last administered on 09/23/19at 12:26; Start 09/23/19 at 12:00; Stop 09/23/19 at 12:01; Status DC Midazolam HCl (Versed) 2 mg 1X ONCE IV Last administered on 09/23/19at 12:25; Start 09/23/19 at 12:30; Stop 09/23/19 at 12:31; Status DC Fentanyl Citrate (Fentanyl 2ml Vial) 100 mcg 1X ONCE IV Last administered on 09/23/19at 12:25; Start 09/23/19 at 12:30; Stop 09/23/19 at 12:31; Status DC Active Scripts Active Furosemide 40 Mg Tablet 40 Mg PO DAILY Aspirin Ec (Aspirin) 81 Mg Tablet. 81 Mg PO DAILYWBKFT Reported Ventolin Hfa Inhaler (Albuterol Sulfate) 18 Gm Hfa.aer.ad 2 Puff INH QID Entresto 24 mg-26 mg Tablet (Sacubitril/Valsartan) 1 Each Tablet 1 Each PO BID Warfarin Sodium 10 Mg Tablet 10 Mg PO UD Warfarin Sodium 5 Mg Tablet 5 Mg PO MONTU TAKE ON THURSDAY AND THURSDAY Atorvastatin Calcium 80 Mg Tablet 80 Mg PO HS Isosorbide Mononitrate Er (Isosorbide Mononitrate) 30 Mg Tab.er.24h 1 Tab PO DAILY Metformin Hcl 500 Mg Tablet 500 Mg PO BIDWMEALS Hold for 48 hours, next dose Tuesday 11/21 evening dose Coreg (Carvedilol) 25 Mg Tablet 25 Mg PO BIDWMEALS Vitals/I & O Vital Sign - Last 24 Hours 09/23/19 09/23/19 09/23/19 09/23/19 08:52 08:52 08:55 09:55 Pulse 67 67 68 58 B/P (MAP) 177/74 177/74 154/74 (100) 162/62 (95) Pulse Ox 96 96 09/23/19 09/23/19 09/23/19 09/23/19 10:51 10:55 12:25 12:49 Temp 97.4 97.4 Pulse 66 64 60 Resp 18 15 19 B/P (MAP) 162/65 (97) 157/71 (99) Pulse Ox 97 96 98 O2 Delivery Room Air Nasal Cannula O2 Flow Rate 2.0 09/23/19 09/23/19 09/23/19 09/23/19 13:05 13:20 13:25 13:50 Pulse 60 63 71 B/P (MAP) 158/70 (99) 154/73 (100) 157/74 (101) Pulse Ox 96 96 98 96 O2 Delivery Room Air O2 Flow Rate 2.0 09/23/19 09/23/19 09/23/19 09/23/19 14:20 14:38 14:50 15:50 Temp 97.6 97.6 Pulse 69 56 75 74 Resp 18 B/P (MAP) 135/64 (87) 149/80 (103) 135/64 (87) 143/67 (92) Pulse Ox 96 90 96 96 O2 Delivery Room Air 09/23/19 09/23/19 09/23/19 09/23/19 16:50 19:00 20:25 23:05 Temp 98.7 97.7 98.7 97.7 Pulse 59 67 63 Resp 21 16 B/P (MAP) 174/71 (105) 134/69 (90) 139/65 (89) Pulse Ox 96 96 95 O2 Delivery Room Air Room Air Room Air 09/24/19 03:00 Temp 97.3 97.3 Pulse 78 Resp 16 B/P (MAP) 125/62 (83) Pulse Ox 95 O2 Delivery Room Air Intake and Output 09/23/19 09/23/19 09/24/19 14:59 22:59 06:59 Intake Total 0 ml 60 ml 100 ml Output Total 250 ml Balance -250 ml 60 ml 100 ml VENECIA BOWERS MD Sep 24, 2019 08:28
[2019-09-24] MEDS ORDERED: MAGNESIUM SULFATE 2GM 50 ML IV ONE (08:30)
[2019-09-24] MEDS: ALLOPURINOL 100 MG TABLET. PO SCH (08:50)
[2019-09-24] MEDS: FUROSEMIDE 40 MG/4 ML VIAL. IVP SCH (08:50)
[2019-09-24] MEDS: ISOSORBIDE MONONITRATE ER 30 MG TAB.ER.24H PO SCH (08:51)
[2019-09-24] MEDS: ASPIRIN ENTERIC COATED 81 MG TABLET.DR. PO SCH (08:51)
[2019-09-24] MEDS: METOPROLOL SUCC 24HR ER 50 MG TAB.ER.24H. PO SCH (08:51)
[2019-09-24] MEDS: INSULIN LISPRO 300 UNITS/3 ML VIAL. SQ SCH ×2 (09:01→12:00)
--- NOTE | 2019-09-24 09:56 | PDOC ---
PULMONARY PROGRESS NOTES Subjective PT. is feeling better today, reports mild SOB overnight, denies increased cough Vitals Vital Signs Date Time Temp Pulse Resp B/P (MAP) Pulse Ox O2 Delivery O2 Flow Rate FiO2 09/24/19 08:51 70 125/62 09/24/19 07:00 97.6 18 91 Room Air 97.6 09/23/19 13:25 2.0 ROS: No Nausea, No Chest Pain, No Abdominal Pain, No Increase Cough Lungs: Wheezing, Crackles Cardiovascular: S1, S2 Abdomen: Soft Neuro Exam: Alert Extremities: Other (Mild edema) Skin: Warm Labs Laboratory Tests Test 09/22/19 10:57 09/22/19 16:28 09/22/19 21:09 09/23/19 04:43 Glucose (Fingerstick) 147 mg/dL (70-99) 378 mg/dL (70-99) 164 mg/dL (70-99) Prothrombin Time 23.8 SEC (11.7-14.0) Prothromb Time International Ratio 2.1 (0.8-1.1) Test 09/23/19 07:12 09/23/19 11:29 09/23/19 16:29 09/23/19 20:25 Glucose (Fingerstick) 161 mg/dL (70-99) 143 mg/dL (70-99) 297 mg/dL (70-99) 90 mg/dL (70-99) Test 09/24/19 04:47 09/24/19 08:14 White Blood Count 9.9 x10^3/uL (4.0-11.0) Red Blood Count 3.74 x10^6/uL (4.30-5.70) Hemoglobin 11.9 g/dL (13.0-17.5) Hematocrit 35.2 % (39.0-53.0) Mean Corpuscular Volume 94 fL (79-100) Mean Corpuscular Hemoglobin 32 pg (25-35) Mean Corpuscular Hemoglobin Concent 34 g/dL (31-37) Red Cell Distribution Width 16.3 % (11.5-14.5) Platelet Count 170 x10^3/uL (140-400) Neutrophils (%) (Auto) 78 % (31-73) Lymphocytes (%) (Auto) 13 % (24-48) Monocytes (%) (Auto) 7 % (0-9) Eosinophils (%) (Auto) 1 % (0-3) Basophils (%) (Auto) 0 % (0-3) Neutrophils # (Auto) 7.7 x10^3/uL (1.8-7.7) Lymphocytes # (Auto) 1.3 x10^3/uL (1.0-4.8) Monocytes # (Auto) 0.7 x10^3/uL (0.0-1.1) Eosinophils # (Auto) 0.1 x10^3/uL (0.0-0.7) Basophils # (Auto) 0.0 x10^3/uL (0.0-0.2) Prothrombin Time 18.0 SEC (11.7-14.0) Prothromb Time International Ratio 1.5 (0.8-1.1) Sodium Level 140 mmol/L (136-145) Potassium Level 4.0 mmol/L (3.5-5.1) Chloride Level 102 mmol/L (98-107) Carbon Dioxide Level 29 mmol/L (21-32) Anion Gap 9 (6-14) Blood Urea Nitrogen 44 mg/dL (8-26) Creatinine 1.6 mg/dL (0.7-1.3) Estimated GFR (Cockcroft-Gault) 42.3 Glucose Level 215 mg/dL (70-99) Calcium Level 8.6 mg/dL (8.5-10.1) Magnesium Level 1.5 mg/dL (1.8-2.4) Glucose (Fingerstick) 191 mg/dL (70-99) Laboratory Tests Test 09/23/19 11:29 09/23/19 16:29 09/23/19 20:25 09/24/19 04:47 Glucose (Fingerstick) 143 mg/dL (70-99) 297 mg/dL (70-99) 90 mg/dL (70-99) White Blood Count 9.9 x10^3/uL (4.0-11.0) Red Blood Count 3.74 x10^6/uL (4.30-5.70) Hemoglobin 11.9 g/dL (13.0-17.5) Hematocrit 35.2 % (39.0-53.0) Mean Corpuscular Volume 94 fL (79-100) Mean Corpuscular Hemoglobin 32 pg (25-35) Mean Corpuscular Hemoglobin Concent 34 g/dL (31-37) Red Cell Distribution Width 16.3 % (11.5-14.5) Platelet Count 170 x10^3/uL (140-400) Neutrophils (%) (Auto) 78 % (31-73) Lymphocytes (%) (Auto) 13 % (24-48) Monocytes (%) (Auto) 7 % (0-9) Eosinophils (%) (Auto) 1 % (0-3) Basophils (%) (Auto) 0 % (0-3) Neutrophils # (Auto) 7.7 x10^3/uL (1.8-7.7) Lymphocytes # (Auto) 1.3 x10^3/uL (1.0-4.8) Monocytes # (Auto) 0.7 x10^3/uL (0.0-1.1) Eosinophils # (Auto) 0.1 x10^3/uL (0.0-0.7) Basophils # (Auto) 0.0 x10^3/uL (0.0-0.2) Prothrombin Time 18.0 SEC (11.7-14.0) Prothromb Time International Ratio 1.5 (0.8-1.1) Sodium Level 140 mmol/L (136-145) Potassium Level 4.0 mmol/L (3.5-5.1) Chloride Level 102 mmol/L (98-107) Carbon Dioxide Level 29 mmol/L (21-32) Anion Gap 9 (6-14) Blood Urea Nitrogen 44 mg/dL (8-26) Creatinine 1.6 mg/dL (0.7-1.3) Estimated GFR (Cockcroft-Gault) 42.3 Glucose Level 215 mg/dL (70-99) Calcium Level 8.6 mg/dL (8.5-10.1) Magnesium Level 1.5 mg/dL (1.8-2.4) Test 09/24/19 08:14 Glucose (Fingerstick) 191 mg/dL (70-99) Medications Active Scripts Medications Dose Route/Sig Max Daily Dose Days Date Category Dose Instructions Ventolin Hfa Inhaler (Albuterol Sulfate) 18 Gm Hfa.aer.ad 2 Puff INH QID 09/20/19 Reported Entresto 24 mg-26 mg Tablet (Sacubitril/Valsartan) 1 Each Tablet 1 Each PO BID 09/20/19 Reported Warfarin Sodium 10 Mg Tablet 10 Mg PO UD 09/20/19 Reported Furosemide 40 Mg Tablet 40 Mg PO DAILY 06/21/19 Rx Aspirin Ec (Aspirin) 81 Mg Tablet. 81 Mg PO DAILYWBKFT 06/21/19 Rx Warfarin Sodium 5 Mg Tablet 5 Mg PO MONTU 06/20/19 Reported TAKE ON THURSDAY AND THURSDAY Atorvastatin Calcium 80 Mg Tablet 80 Mg PO HS 06/20/19 Reported Isosorbide Mononitrate Er (Isosorbide Mononitrate) 30 Mg Tab.er.24h 1 Tab PO DAILY 12/11/17 Reported Metformin Hcl 500 Mg Tablet 500 Mg PO BIDWMEALS 05/06/15 Reported Hold for 48 hours, next dose Tuesday 11/21 evening dose Coreg (Carvedilol) 25 Mg Tablet 25 Mg PO BIDWMEALS 09/20/19 Reported Comments Cardiac Cath- RA pressure: RV 54 PA: Pulmonary capillary wedge pressure 29 PA saturation 65% Radha cardiac output 4.5 and Radha cardiac index 2.2 Conclusion 1. Elevated biventricular filling pressures consistent with acute on chronic systolic and diastolic heart failure and secondary pulmonary hypertension 2. Low cardiac output. Impression . IMPRESSION: 1. Progressive dyspnea secondary to acute on chronic diastolic and systolic heart failure. 2. Abnormal chest x-ray, consistent with congestive heart failure, cardiomegaly and mild interstitial markings. 3. Atrial fibrillation with rapid ventricular response, contributing to heart failure. 4. Low clinical suspicion for COVID-19. 5. Underlying chronic obstructive pulmonary disease. Fifty years of tobacco use. Unknown FEV1. 6. Ischemic cardiomyopathy with an EF of 15-20%. 7. Acute kidney injury on chronic kidney disease. 8. Coagulopathy with Coumadin. No evidence of any bleeding. Plan . Continue supplemental oxygen to keep oxygen saturations above 92% Catheterization report reviewed-- cont. lasix S/P Cardioversion with SHEELA Follow cardiology recs Discontinue smoking 6-minute walk prior to discharge add duoneb and pulmicort D/W ALONDRA BREWER MD Sep 24, 2019 09:56
[2019-09-24 11:00] VITALS: BP 132/68
[2019-09-24] MEDS ORDERED: INDO50CA15 PO (11:26)
[2019-09-24] MEDS ORDERED: ALLO100T PO (11:26)
[2019-09-24] MEDS ORDERED: BUDESONIDE 0.5 MG/2 ML NEBU. NEB SCH (12:00)
[2019-09-24] MEDS ORDERED: IPRATRPIUM/ALBUTEROL 0.5/2.5MG 3 ML NEBU. NEB SCH (12:00)
[2019-09-24] MEDS ORDERED: SITA50TA PO (12:04)
[2019-09-24] MEDS ORDERED: MAGN400C PO (12:04)
[2019-09-24] MEDS ORDERED: EMPA10TA PO (12:04)
[2019-09-24] MEDS ORDERED: FURO40TA4 PO (12:06)
--- NOTE | 2019-09-24 12:14 | PDOC3 ---
Discharge Summary Visit Information Date of Admission: Sep 20, 2019 Date of Discharge: Sep 24, 2019 Admitting Diagnosis: Acute CHF, afib Final Diagnosis Problems Medical Problems: (1) Congestive heart failure Status: Acute (2) COPD with exacerbation Status: Acute (3) Rapid atrial fibrillation Status: Acute Brief Hospital Course Allergies Allergies Coded Allergies Type Severity Reaction Last Updated Verified No Known Drug Allergies 05/05/15 No Vital Signs Vital Signs Date Time Temp Pulse Resp B/P (MAP) Pulse Ox O2 Delivery O2 Flow Rate FiO2 09/24/19 11:00 98.0 59 18 132/68 (89) 93 Room Air 98.0 09/23/19 13:25 2.0 Lab Results Laboratory Tests Test 09/22/19 16:28 09/22/19 21:09 09/23/19 04:43 09/23/19 07:12 Glucose (Fingerstick) 378 mg/dL (70-99) 164 mg/dL (70-99) 161 mg/dL (70-99) Prothrombin Time 23.8 SEC (11.7-14.0) Prothromb Time International Ratio 2.1 (0.8-1.1) Test 09/23/19 11:29 09/23/19 16:29 09/23/19 20:25 09/24/19 04:47 Glucose (Fingerstick) 143 mg/dL (70-99) 297 mg/dL (70-99) 90 mg/dL (70-99) White Blood Count 9.9 x10^3/uL (4.0-11.0) Red Blood Count 3.74 x10^6/uL (4.30-5.70) Hemoglobin 11.9 g/dL (13.0-17.5) Hematocrit 35.2 % (39.0-53.0) Mean Corpuscular Volume 94 fL (79-100) Mean Corpuscular Hemoglobin 32 pg (25-35) Mean Corpuscular Hemoglobin Concent 34 g/dL (31-37) Red Cell Distribution Width 16.3 % (11.5-14.5) Platelet Count 170 x10^3/uL (140-400) Neutrophils (%) (Auto) 78 % (31-73) Lymphocytes (%) (Auto) 13 % (24-48) Monocytes (%) (Auto) 7 % (0-9) Eosinophils (%) (Auto) 1 % (0-3) Basophils (%) (Auto) 0 % (0-3) Neutrophils # (Auto) 7.7 x10^3/uL (1.8-7.7) Lymphocytes # (Auto) 1.3 x10^3/uL (1.0-4.8) Monocytes # (Auto) 0.7 x10^3/uL (0.0-1.1) Eosinophils # (Auto) 0.1 x10^3/uL (0.0-0.7) Basophils # (Auto) 0.0 x10^3/uL (0.0-0.2) Prothrombin Time 18.0 SEC (11.7-14.0) Prothromb Time International Ratio 1.5 (0.8-1.1) Sodium Level 140 mmol/L (136-145) Potassium Level 4.0 mmol/L (3.5-5.1) Chloride Level 102 mmol/L (98-107) Carbon Dioxide Level 29 mmol/L (21-32) Anion Gap 9 (6-14) Blood Urea Nitrogen 44 mg/dL (8-26) Creatinine 1.6 mg/dL (0.7-1.3) Estimated GFR (Cockcroft-Gault) 42.3 Glucose Level 215 mg/dL (70-99) Calcium Level 8.6 mg/dL (8.5-10.1) Magnesium Level 1.5 mg/dL (1.8-2.4) Test 09/24/19 08:14 09/24/19 11:17 Glucose (Fingerstick) 191 mg/dL (70-99) 140 mg/dL (70-99) Laboratory Tests Test 09/23/19 16:29 09/23/19 20:25 09/24/19 04:47 09/24/19 08:14 Glucose (Fingerstick) 297 mg/dL (70-99) 90 mg/dL (70-99) 191 mg/dL (70-99) White Blood Count 9.9 x10^3/uL (4.0-11.0) Red Blood Count 3.74 x10^6/uL (4.30-5.70) Hemoglobin 11.9 g/dL (13.0-17.5) Hematocrit 35.2 % (39.0-53.0) Mean Corpuscular Volume 94 fL (79-100) Mean Corpuscular Hemoglobin 32 pg (25-35) Mean Corpuscular Hemoglobin Concent 34 g/dL (31-37) Red Cell Distribution Width 16.3 % (11.5-14.5) Platelet Count 170 x10^3/uL (140-400) Neutrophils (%) (Auto) 78 % (31-73) Lymphocytes (%) (Auto) 13 % (24-48) Monocytes (%) (Auto) 7 % (0-9) Eosinophils (%) (Auto) 1 % (0-3) Basophils (%) (Auto) 0 % (0-3) Neutrophils # (Auto) 7.7 x10^3/uL (1.8-7.7) Lymphocytes # (Auto) 1.3 x10^3/uL (1.0-4.8) Monocytes # (Auto) 0.7 x10^3/uL (0.0-1.1) Eosinophils # (Auto) 0.1 x10^3/uL (0.0-0.7) Basophils # (Auto) 0.0 x10^3/uL (0.0-0.2) Prothrombin Time 18.0 SEC (11.7-14.0) Prothromb Time International Ratio 1.5 (0.8-1.1) Sodium Level 140 mmol/L (136-145) Potassium Level 4.0 mmol/L (3.5-5.1) Chloride Level 102 mmol/L (98-107) Carbon Dioxide Level 29 mmol/L (21-32) Anion Gap 9 (6-14) Blood Urea Nitrogen 44 mg/dL (8-26) Creatinine 1.6 mg/dL (0.7-1.3) Estimated GFR (Cockcroft-Gault) 42.3 Glucose Level 215 mg/dL (70-99) Calcium Level 8.6 mg/dL (8.5-10.1) Magnesium Level 1.5 mg/dL (1.8-2.4) Test 09/24/19 11:17 Glucose (Fingerstick) 140 mg/dL (70-99) Brief Hospital Course Mr Oconnell is a 74 yo male w/ PMHx chronic diastolic/systolic CHF, ICM with EF 15-20% s/p AICD, AFIB with RVR, CAD s/p CABG, s/p Mechanical AVR, CKD3, COPD with continued tobaccoism, Hypokalemia with severe hypomagnesemia admitted for complains of shortness of breath. since Thursday he has been having periods of PND and was orthopneic and complaining of insomnia. He also has been having palpitations that intermittently occurs. No chest pain, diaphoresis, wheezing. No intractable coughing and has been compliant with his medications, HF regimen including FR and low salt diet. H has COPD but does not appear to have exacerbation and no complains of any recent respiratory infection. He was at [facility] at least thats what he could remember and could not tell me when exactly but was recent. His ankle has been more swollen lately. Pt is not a reliable historian when it comes to event of his recent hospitalization and accuracy of his meds. It appears that his entresto has been increased likely prior to DC from [facility] but may have not filled it and was noted to have been complaining to have been out of entresto for 2 weeks. Found with INR 5.3, in acute CHF and COPD with rapid afib. Cardiology and pulmonology consulted. COVID 19 negative 09/21: Still wheezing a bit, but breathing improved overall. Rapid atrial fibrillation, COVID negative, transferred to CVC, successful SHEELA cardioversion today with EF 10-15% noted as well as global hypokinesis and mechanical aortic valve in place, hold off on RHC due to blood thinners. 09/22: INR 2.1 today. Afebrile. Still with wheeze, but he feels less short of breath. He is asking when he can leave the hospital. No chest pain. Right heart cath with increased pressures consistent with systolic and diastolic acute CHF, diuresed IV 40mg BID. INR 1.5 today. Ready to go home, transition to PO lasix and PO mag. Stop metformin and start januvia and jardiance. Problem list: Acute on chronic diastolic/systolic CHf Persistent AFIB with RVR: CAD, PREVIOUS CABG Mechanical AVR ICM: EF 15-20% AICD: DIOGENES on CKD3: COPD Coagulopathy Hypokalemia hypomagnesemia Covid negative Greater than 30 minutes spent on d/c Discharge Information Condition at Discharge: Improved (1) Follow Up: Weeks (1) Disposition/Orders: D/C to Home Scheduled Albuterol Sulfate (Ventolin Hfa Inhaler) 18 Gm Hfa.aer.ad, 2 PUFF INH QID for FOR ASTHMA, Ref 0 (Reported) Entered as Reported by: ROSA CORBETT on 09/20/191856 Last Action: New Order on 09/20/191856 by ROSA CORBETT Allopurinol (Allopurinol) 100 Mg Tablet, 1 TAB PO DAILY for Gout, #30 Ref 5 (Reported) Entered as Reported by: ROSA CORBETT on 09/24/191125 Last Action: New Order on 09/24/191125 by ROSA CORBETT Aspirin (Aspirin Ec) 81 Mg Tablet.dr, 81 MG PO DAILYWBKFT for CAD, #30 Ref 2 Prescribed by: TORSTEN RODRIGUEZ on 06/21/19 1330 Last Action: Reviewed on 09/20/191856 by ROSA CORBETT Atorvastatin Calcium (Atorvastatin Calcium) 80 Mg Tablet, 80 MG PO HS for cholesterol, (Reported) Entered as Reported by: FREDDIE DODD RN on 06/20/192017 Last Action: Edited on 09/20/191856 by ROSA CORBETT Carvedilol (Coreg) 25 Mg Tablet, 25 MG PO BIDWMEALS for CARDIAC, (Reported) Entered as Reported by: ROSA CORBETT on 09/20/191856 Last Action: New Order on 09/20/191856 by ROSA CORBETT Empagliflozin (Jardiance) 10 Mg Tablet, 10 MG PO DAILY for DM2/CHF for 30 Days, #30 Ref 5 Prescribed by: VENECIA BOWERS MD on 09/24/19 1204 Furosemide (Furosemide) 40 Mg Tablet, 40 MG PO BID for CHF for 30 Days, #60 Ref 3 Prescribed by: VENECIA BOWERS MD on 09/24/19 1206 Isosorbide Mononitrate (Isosorbide Mononitrate Er) 30 Mg Tab.er.24h, 1 TAB PO DAILY for heart, #30 Ref 5 (Reported) Entered as Reported by: ALCIDES RUIZ on 12/11/17 1103 Last Action: Reviewed on 09/20/191856 by ROSA CORBETT Magnesium Oxide (Magnesium) 400 Mg Capsule, 1 CAP PO BID for Hypomagensemia/CHF for 30 Days, #60 Ref 5 Prescribed by: VENECIA BOWERS MD on 09/24/19 1204 Sacubitril/Valsartan (Entresto 24 mg-26 mg Tablet) 1 Each Tablet, 1 EACH PO BID for ICM, (Reported) Entered as Reported by: ROSA CORBETT on 09/20/191856 Last Action: New Order on 09/20/191856 by ROSA CORBETT Sitagliptin Phosphate (Januvia) 50 Mg Tablet, 1 TAB PO DAILY for DM2 for 90 Days, #90 Ref 3 Prescribed by: VENECIA BOWERS MD on 09/24/19 1204 Warfarin Sodium (Warfarin Sodium) 5 Mg Tablet, 5 MG PO MONTU for mechanical valve, #30 (Reported) TAKE ON THURSDAY AND THURSDAY Entered as Reported by: FERDDIE DODD RN on 06/20/192036 Last Action: Reviewed on 09/20/191856 by ROSA CORBETT Warfarin Sodium (Warfarin Sodium) 10 Mg Tablet, 10 MG PO UD for afib, (Reported) Entered as Reported by: ROSA CORBETT on 09/20/191856 Last Action: New Order on 09/20/191856 by ROSA CORBETT Discontinued Medications Indomethacin (Indomethacin) 50 Mg Capsule, 50 MG PO PRN TID for Arthritis, (Reported) Entered as Reported by: ROSA CORBETT on 09/24/191125 Last Action: New Order on 09/24/191125 by ROSA CORBETT Metformin Hcl (Metformin Hcl) 500 Mg Tablet, 500 MG PO BIDWMEALS for ANTI- DIABETIC, Ref 0 (Reported) Hold for 48 hours, next dose Tuesday 11/21 evening dose Entered as Reported by: ERICKSON NIELSON on 05/06/15 09 Last Action: Reviewed on 09/20/191856 by ROSA CORBETT Justicifation of Admission Dx: Justifications for Admission: Justification of Admission Dx: Yes CHF: Cardiac Arrhythmias VENECIA BOWERS MD Sep 24, 2019 12:14
--- NOTE | 2019-09-24 14:18 | NUR ---
Discharge Note: SHELLY COREAS Discharge instructions and discharge home medications reviewed with Patient and Son at bedside and a copy given. All questions have been answered and understanding verbalized. The following instructions and handouts were given: HF, SOA, AFib, magnesium rich food Discontinued lines and drains: Peripheral IV intact. Patient discharged to Home or Self Care with Family Member via Wheelchair
== END 2019-09-24 14:20 | disposition home or self-care (01) | DRG 286 ==
LOC: ER 10:50 → ED HOLD 12:51 → 2 SOUTH 14:07 → 6 SOUTH 16:34 → 2 SOUTH 09-21 14:33
PROVIDERS: ADMIT Internal Medicine; ATTEND Internal Medicine
PROC: 5A2204Z Restoration of Cardiac Rhythm, Single (ICD-10-PCS; principal; 2019-09-20)
PROC: B246ZZ4 Ultrasonography of Right and Left Heart, Transesophageal (ICD-10-PCS; 2019-09-20)
PROC: 4A023N6 Measurement of Cardiac Sampling and Pressure, Right Heart, Percutaneous Approach (ICD-10-PCS; 2019-09-20)
PROC: B2111ZZ Fluoroscopy of Multiple Coronary Arteries using Low Osmolar Contrast (ICD-10-PCS; 2019-09-20)
DX: I13.0 Hypertensive heart and chronic kidney disease with heart failure and stage 1 through stage 4 chronic kidney disease, or unspecified chronic kidney disease (principal); I50.43 Acute on chronic combined systolic (congestive) and diastolic (congestive) heart failure; N17.0 Acute kidney failure with tubular necrosis; D68.9 Coagulation defect, unspecified; I48.19 Other persistent atrial fibrillation; J44.1 Chronic obstructive pulmonary disease with (acute) exacerbation; E11.22 Type 2 diabetes mellitus with diabetic chronic kidney disease; E78.00 Pure hypercholesterolemia, unspecified; E78.5 Hyperlipidemia, unspecified; E83.42 Hypomagnesemia; E87.6 Hypokalemia; F17.210 Nicotine dependence, cigarettes, uncomplicated; G47.00 Insomnia, unspecified; I25.10 Atherosclerotic heart disease of native coronary artery without angina pectoris; I25.5 Ischemic cardiomyopathy; N18.3 Chronic kidney disease, stage 3 (moderate); Z20.828 Contact with and (suspected) exposure to other viral communicable diseases; Z95.2 Presence of prosthetic heart valve; Z95.1 Presence of aortocoronary bypass graft; Z95.810 Presence of automatic (implantable) cardiac defibrillator; K21.9 Gastro-esophageal reflux disease without esophagitis; M19.90 Unspecified osteoarthritis, unspecified site
CPT/HCPCS: 36415; 71045; 76937; 80048; 80053; 80076; 82962; 83735; 83880; 84443; 84484; 85007; 85025; 85610; 92960; 93005; 93312; 93325; 93451; 94618; 94640; 94760; 96374; 96375; 99152; 99153; 99406; C1769; C1773; C1892; J1160; J1644; J1815; J1940; J2250; J2260; J2930; J3010; J3475; J3490; 99291-25; G0378; J7626; U0003-CS

== ENCOUNTER → 2019-12-09 | Outpatient (CLI) | payer BC, MEDICARE ==
[~2019-12-09] MED LIST changes: -ASPI-612 PO; +ASPI-886 PO; +EMPA10TA PO; -LISI1TAB19 PO; +LISI1TAB37 PO; +MAGN400C PO; +REGADENOSON 0.4 MG/5 ML DISP.SYRIN. IV ONE; +SACU1TAB PO; +SITA50TA PO; +VENTOLIN HFA18 GM INH; +WARF10TA40 PO
[2019-12-09 09:18] LABS: ALBUMIN 3.6 g/dL (3.4-5.0); CREATININE 2.1 mg/dL (0.7-1.3); GFR 30.9; TOTAL BILIRUBIN 0.4 mg/dL (0.2-1.0); TOTAL PROTEIN 7.1 g/dL (6.4-8.2)
--- NOTE | 2019-12-09 16:38 | RAD ---
MR#: [id number] Date of Study: 12/09/2019 Ordering Physician: BRISA PEREZ, Referring Physician: FRANNIE ROGERS Tech: ELISHA Sylvester, JOMAR (R) (N) APPROVED REPORT Test Type: Pharmacological Stress Nurse/Tech: Cesia Lambert RN Test Indications: CAD Cardiac History: CABG x4 in 1999, HTN, PPM, See EMR. Medications: anticoagulant, See EMR. Medical History: Smoker x50 yrs, DM, See EMR. Resting ECG: Afib Resting Heart Rate: 86 bpm Resting Blood Pressure: 131/67mmHg Pretest Chest Pain: No chest pain Nurse/Tech Notes Lungs diminished throughout, heart tones irregular. Consent: The procedure was explained to the patient in lay terms. Informed consent was witnessed. Calvin eout was entered into [employer]. History and Stress Test performed by RT Regina (R) (N) Pharm. Details Pharmacologic stress testing was performed using 0.4mg per 5ml of regadenoson given intravenously ove r 7-10 seconds. Stress Symptoms No chest pain or symptoms. Possible undersensing by the PPM. POST EXERCISE Reason for Termination: Infusion complete Max HR: 112 bpm Max Blood Pressure: 128/74mmHg Blood Pressure response to exercise: Normal blood pressure response during stress. Heart Rate response to exercise: WNL Chest Pain: No. Arrhythmia: No. ST Change: No. INTERPRETATION Stress EKG Conclusion: No evidence of stress induced EKG changes. Imaging Protocol IMAGE PROTOCOL: Rest Tc-99m/stress Tc-99m 1 day Rest: Stress: Viability: Radiopharm.Tc99m [id number] Sestamibi Dose10.3mCi 30mCi Img Date 12/09/2019 12/09/2019 Inj-Img Repi65wie. 60min. Rest Admin Site:IV - Left WristAdministrator:ELISHA Sylvester, JOMAR (R)(N) Stress Admin Site: IV - Left WristAdministrator: RT Darek Tapia)(N) STRESS DATA End Diast. Vol.331.0mlAv. Heart Rate91.0bpm End Syst. Vol.250.0mlCO Index BSA7.4L/min Myocardial Lqqp144.0gEject. Neiyvbfw09.0% Stress Rates Pk. Fill Rate1.69EDV/secLVtime Pk. Fill 176.29msec Pk. Empty Rate1.82ESV/secLVtime Pk. Ojxsd320.29msec 1/3 Pk. Fill0.30EDV/sec Stress Scores Regional WT2.00Summed WT38.00 Regional WM0.00Summed WM26.00 LV Perfusion There is a large sized, severe in intensity FIXED basal to distal inferior, basal to mid inferolatera l defect suggestive of prior infarct without ischemia. Wall Motion Severe LV dysfunction. EF 30% LV Perf. Quant 17 Seg. SSS16.00 17 Seg. SRS16.00 17 Seg. SDS3.00 Stress Defect Extent (% LAD)34.40Rest Defect Extent (% LAD)37.50Rev. Defect Extent (% LAD)8.80 Stress Defect Extent (% LCX) 37.50Rest Defect Extent (% LCX)38.80Rev. Defect Extent (% LCX)0.00 Stress Defect Extent (% RCA)10.00Rest Defect Extent (% RCA)24.40Rev. Defect Extent (% RCA)0.00 Stress Defect Extent (% ROSELYN)27.20Rest Defect Extent (% ROSELYN)33.50Rev. Defect Extent (% ROSELYN)4.80 Other Information Quality:Fair Risk Assessment: Moderate-High Risk Conclusion 1. No evidence of stress induced EKG changes 2. Large FIXED inferior wall defect without significant ischemia. 3. Severe LV dysfunction. EF 30% 4. Moderate to high risk for future CV events. Signed by : Brisa Perez, Electronically Approved : 12/09/2019 16:37:41
== END | disposition home or self-care (01) ==
LOC: NM 09:44
PROVIDERS: ATTEND Internal Medicine Cardiovascular Disease
DX: I25.10 Atherosclerotic heart disease of native coronary artery without angina pectoris (principal); I10 Essential (primary) hypertension; Z95.1 Presence of aortocoronary bypass graft
CPT/HCPCS: 36415; 78452; 80053; 83880; 93017; A9500; J2785

== ENCOUNTER 2020-01-01 09:50 | Emergency (ER) | payer BC, MEDICARE ==
[~2020-01-01] VITALS: Ht 182.9 cm; Wt 84.0 kg
[~2020-01-01 09:50] MED LIST changes: -REGADENOSON 0.4 MG/5 ML DISP.SYRIN. IV ONE
--- NOTE | 2020-01-01 11:25 | PHYS DOC ---
Past Medical History Past Medical History: Diabetes-Type II, High Cholesterol, Heart Disease, Hypertension Past Surgical History: Coronary Bypass Surgery, Pacemaker, Other Additional Past Surgical Histo: valve replacement Smoking Status: Current Every Day Smoker Alcohol Use: None Drug Use: None General Adult EDM: Chief Complaint: MECHANICAL FALL HPI: HPI: Patient is 74-year-old male presents to the emergency room complaining of left rib pain for several days. He tripped over a stump on falling onto his left side. He did try to catch himself with his hand and initially had some hand swelling that is now resolved. He no longer has any pain in his hand. He continues to have left-sided rib pain that that is worse with deep breaths. He does have some mild shortness of breath. He denies any other injuries. He is not on blood thinners. He did not hit his head. He denies losing consciousness. Review of Systems: Review of Systems: General: Denies fever, chills, sweats, fatigue Eyes: Denies drainage, blurred vision, eye redness HENT: Denies rhinorrhea, sore throat, earache Respiratory: Denies cough, shortness of breath, wheezing Cardiac: Denies edema, palpitations. Reports chest pain GI: Denies abdominal pain, Nausea, vomiting MSK: Denies back pain, neck pain Skin: Denies rash, jaundice Neuro: Denies headache, dizziness Psychiatric: Denies SI/HI Heart Score: Risk Factors: Risk Factors: DM, Current or recent (<one month) smoker, HTN, HLP, family history of CAD, obesity. Risk Scores: Score 0 - 3: 2.5% MACE over next 6 weeks - Discharge Home Score 4 - 6: 20.3% MACE over next 6 weeks - Admit for Clinical Observation Score 7 - 10: 72.7% MACE over next 6 weeks - Early Invasive Strategies Allergies: Allergies: Allergies Coded Allergies Type Severity Reaction Last Updated Verified No Known Drug Allergies 05/05/15 No Physical Exam: PE: General: Awake, alert, NAD. Well Nourished, well hydrated. Cooperative HEENT: Atraumatic, EOMI, PERRL, airway patent, moist oral mucosa Neck: Supple, trachea midline Respiratory: CTA bilaterally, normal effort, no wheezing/crackles, left-sided chest wall tenderness CV: RRR, no murmur, cap refill <2 GI: Soft, nondistended, nontender, no masses MSK: No obvious deformities Skin: Warm, dry, intact Neuro: A&O x3, speech NL, sensory and motor grossly intact, no focal deficits Psych: Normal affect, normal mood, not suicidal or homicidal Current Patient Data: Vital Signs: Vital Signs Date Time Temp Pulse Resp B/P (MAP) Pulse Ox O2 Delivery O2 Flow Rate FiO2 01/01/20 10:47 104 18 122/67 (85) 96 Room Air 01/01/20 10:25 97.8 97.8 EKG: EKG: [] Radiology/Procedures: Radiology/Procedures: [] Course & Med Decision Making: Course & Med Decision Making Pertinent Labs and Imaging studies reviewed. (See chart for details) Patient is a 74-year-old male who presents to the emergency room complaining of pain after fall. CT was ordered to evaluate for rib fractures. CT negative. We discussed the importance of taking deep breaths to avoid pneumonia. Patient's test results and vitals while in the ED were fully reviewed and discussed with the patient. Patient is stable and at this time does not need admission to the hospital. We have discussed strict return precautions and the importance of fol lowing up with their Primary Care Physician. Patient stated understanding and was given an opportunity to ask any questions. Patient is in agreement with plan. Reinaldo Disclaimer: Reinaldo Disclaimer: This electronic medical record was generated, in whole or in part, using a voice recognition dictation system. Departure Departure Impression: Primary Impression: Fall Disposition: 01 HOME, SELF-CARE Condition: STABLE Referrals: COLLETTE REYNA MD (PCP) Patient Instructions: Rib Contusion Scripts Oxycodone/Apap 5-325 (PERCOCET 5-325 MG TABLET ) 1 Each Tablet 1 TAB PO PRN Q6HRS PRN for PAIN, #8 TAB 0 Refills Prov: MADELEINE ESTRADA MD 01/01/20 MADELEINE ESTRADA MD Jan 01, 2020 11:25
--- NOTE | 2020-01-01 12:45 | RAD ---
EXAM: CT Chest without IV contrast INDICATION: Reason: chest wall trauma / Spl. Instructions: / History: TECHNIQUE: Multi-detector row CT images were acquired from the thoracic inlet through the upper abdomen without the use of IV contrast. Sagittal and coronal images were acquired from the transaxial data. All CT scans performed at this facility utilize dose optimization techniques as appropriate to the exam, including the following: Automated exposure control and adjustment of the mA and/or KV according to patient size (this includes techniques or standardized protocols for targeted exams where dose is indication/reason for exam). COMPARISON: Chest x-ray of 09/20/2019 FINDINGS: Redemonstrated is a left chest single lead AICD. The absence of IV contrast limits evaluation of soft tissue pathology. 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 Normal caliber thoracic aorta. Aortic valvular prosthesis. MEDIASTINUM & PAULA: Calcified mediastinal lymph nodes. Mildly prominent noncalcified mediastinal nodes including prevascular 6 mm node is noted. Nonspecific mild diffuse wall thickening in the thoracic esophagus in the underdistended state. LUNGS: Mild centrilobular and paraseptal pattern emphysema. Mild subsegmental atelectasis in the right lower lobe. PLEURAL SPACE: Trace left pleural effusion. No pneumothorax. OSSEOUS & SOFT TISSUE: Unremarkable ABDOMEN: The visualized portions of the upper abdomen are unremarkable. IMPRESSION: No CT evidence of significant chest wall trauma. Multiple additional incidental findings as described in the body of report. Electronically signed by: Garett Varner MD (01/01/2020 12:42 PM) [facility] [place]
[2020-01-01 13:10] VITALS: BP 138/72
[2020-01-01] MEDS ORDERED: OXYC1TAB15 PO (13:17)
== END 2020-01-01 13:20 | disposition home or self-care (01) ==
LOC: ER 09:50
DX: G89.11 Acute pain due to trauma (principal); R07.81 Pleurodynia; R06.02 Shortness of breath; E11.9 Type 2 diabetes mellitus without complications; E78.00 Pure hypercholesterolemia, unspecified; I11.9 Hypertensive heart disease without heart failure; F17.200 Nicotine dependence, unspecified, uncomplicated; Z95.0 Presence of cardiac pacemaker; Z98.890 Other specified postprocedural states; W18.09XA Striking against other object with subsequent fall, initial encounter; Y93.89 Activity, other specified; Y92.89 Other specified places as the place of occurrence of the external cause; Y99.8 Other external cause status
CPT/HCPCS: 71250; 99285